=== PATIENT | female | born 1955 | race Caucasian/White ===

== ENCOUNTER 2021-08-25 09:34 | Inpatient (IN) ==
[2021-08-25] MEDS ORDERED: AZITHROMYCIN 500 MG in DEXTROSE 5% 250 ML IV STA (10:12)
[2021-08-25] MEDS ORDERED: SODIUM CHLORIDE 0.9% 1000ML 1,000 ML IV SCH (10:15)
[2021-08-25] MEDS ORDERED: DIPHTHERIA/TETANUS/PERTUSSIS 0.5 ML SYR/VIAL IM ONE (10:17)
[2021-08-25] MEDS ORDERED: VANCOMYCIN HCL 2,750 MG in SODIUM CHLORIDE 0.9% 500 ML IV ONE (10:40)
[2021-08-25] MEDS ORDERED: rifAMPin 300 MG CAPSULE PO ONE (10:40)
[2021-08-25] MEDS ORDERED: VANCOMYCIN CONSULT ACTIVE PRN (10:40)
[2021-08-25] MEDS ORDERED: XYLOCAINE 1%/SOD BICARB 20 ML VIAL INFIL STA (10:48)
[2021-08-25 10:55] LABS: Basophils # (auto) 0.02 K/uL (0-0.2); Basophils % (auto) 0.1 %; Eosinophils # (auto) 0.33 K/uL (0-0.5); Eosinophils % (auto) 2.5 %; Hemoglobin 13.9 g/dL (12.0-16.0); Immature Granulocytes # (auto) 0.05 K/uL (0.00-0.02); Immature Granulocytes % (auto) 0.4 %; Lymphocytes # (auto) 1.56 K/uL (1.2-3.4); Lymphocytes % (auto) 11.6 %; Mean Corpuscular Hemoglobin 30.4 pg (25-34); Mean Corpuscular Hgb Conc 33.1 g/dL (32-36); Mean Corpuscular Volume 91.9 fL (80-100); Mean Platelet Volume 8.9 fL (7.4-10.4); Monocytes # (auto) 0.77 K/uL (0.11-0.59); Monocytes % (auto) 5.7 %; Neutrophils # (auto) 10.69 K/uL (1.4-6.5); Neutrophils % (auto) 79.7 %; Platelet Count 389 K/uL (130-400); RDW Coefficient of Variation 12.9 % (11.5-14.5); RDW Standard Deviation 43.1 fL (36.4-46.3); Red Blood Count 4.57 M/uL (4.2-5.4); White Blood Count 13.42 K/uL (4.8-10.8)
--- NOTE | 2021-08-25 10:59 | Emergency Department Note ---
History of Present Illness General Chief complaint: Infection, Wound Stated complaint: ABCESS ON R ARM, PAIN AND DISCHARGE Time Seen by Provider: 08/25/21 09:43 History of Present Illness Maximum Pain Intensity: 10 This 66-year-old female patient presents to the emergency department today for evaluation of abscess and infection of the right forearm. The patient notes she was scratched by a cat, she believes on Monday. She states by Monday, she noticed some redness which was more like a band around her forearm. She was started on what she believes to be amoxicillin, but it sounds like it could be Augmentin (she takes BID) for the past 2 days. She has noted worsening pain, swelling, redness, and some purulent discharge. She states yesterday she developed chills, body aches, and fever of 102F. She has been taking Advil and ASA for her fever and pain. She reports throbbing, aching pain she rates 10/10 and describes as sharp. Pain is worse with movement of the RUE and palpation of the area. No numbness or tingling. No chest pain or dyspnea. No abdominal pain or vomiting. Home Medications Medication Instructions Recorded Confirmed Type amoxicillin 500 mg tablet 500 mg PO BID 08/25/21 08/25/21 History aspirin 81 mg chewable tablet 81 mg PO DAILY PRN 08/25/21 08/25/21 History bupropion HCl 150 mg tablet,12 hr 150 mg PO DAILY 08/25/21 08/25/21 History sustained-release (Wellbutrin SR) cariprazine 1.5 mg capsule 1.5 mg PO DAILY 08/25/21 08/25/21 History (Vraylar) duloxetine 60 mg capsule,delayed 60 mg PO BID 08/25/21 08/25/21 History release (Cymbalta) ibuprofen 200 mg tablet (Advil) 200 mg PO Q6H PRN 08/25/21 08/25/21 History Allergies Allergy/AdvReac Type Severity Reaction Status Date / Time No Known Allergies Allergy Unverified 08/25/21 10:30 Past Med/Surg History Medical History (Updated 08/25/21 @ 17:29 by Yahaira Limon PA-C) Depression Social History Smoking Status: Never smoker Hx Alcohol Use: Yes Alcohol type: wine Hx Substance Use: No Preferred Language: Yakut Communication Ability: Effective Clothing Supervisor Required: No Beliefs That Will Affect Care: None Current Living Situation: Alone Feels Safe at Home: Yes Assistive Devices: None Review of Systems A total of 10 systems reviewed and were otherwise negative Physical Exam Vital Signs Vital Signs - 24 hr 08/25/21 09:40 08/25/21 10:27 08/25/21 10:44 Temperature 36.4 C L Temperature Source Temporal Artery Scan Pulse Rate 106 H Pulse Rate [Apical] 78 Pulse Rate from SpO2 Sensor Pulse Rhythm Regular Pulse Strength Normal Respiratory Rate 20 20 Respiratory Effort / Characteristics Non-Labored Spontaneous Respiratory Depth Normal Respiratory Pattern Regular Blood Pressure 156/99 H Blood Pressure [Left Arm] 149/92 H Blood Pressure Mean 118 Blood Pressure Mean [Left Arm] 111 Blood Pressure Position Sitting Pulse Oximetry 96 95 Oxygen Delivery Method Room Air Room Air Room Air Sepsis Recent Fever Within 48 Hours No Sepsis New/Unexplained Change in Mental Status N/A Sepsis Action Taken by Nursing No Action Required 08/25/21 11:00 08/25/21 11:30 08/25/21 12:00 Temperature Temperature Source Pulse Rate 85 74 84 Pulse Rate [Apical] 82 Pulse Rate from SpO2 Sensor 84 76 84 Pulse Rhythm Pulse Strength Respiratory Rate 20 19 21 Respiratory Effort / Characteristics Respiratory Depth Respiratory Pattern Blood Pressure 142/94 H 156/95 H 142/97 H Blood Pressure [Left Arm] 142/94 H Blood Pressure Mean 110 115 112 Blood Pressure Mean [Left Arm] 110 Blood Pressure Position Pulse Oximetry 95 96 98 Oxygen Delivery Method Room Air Sepsis Recent Fever Within 48 Hours Sepsis New/Unexplained Change in Mental Status Sepsis Action Taken by Nursing 08/25/21 12:09 Temperature Temperature Source Pulse Rate Pulse Rate [Apical] Pulse Rate from SpO2 Sensor Pulse Rhythm Pulse Strength Respiratory Rate Respiratory Effort / Characteristics Non-Labored Spontaneous Respiratory Depth Respiratory Pattern Blood Pressure Blood Pressure [Left Arm] Blood Pressure Mean Blood Pressure Mean [Left Arm] Blood Pressure Position Pulse Oximetry Oxygen Delivery Method Room Air Sepsis Recent Fever Within 48 Hours Sepsis New/Unexplained Change in Mental Status Sepsis Action Taken by Nursing VITALS: Vitals are noted on the nurse's note and reviewed by myself. Vital signs stable. GENERAL: This is a 66 year old white female, in no acute distress, nondiaphoretic, well-developed well-nourished. SKIN: Golf-ball size abscess of the right forearm with surrounding erythema and induration of the tissue with erythema extending up the right upper extremity to the axilla. No specific lymphadenopathy, but the RUE is extremely tender to palpation. The skin was otherwise without rashes, erythema, edema, or bruising. There is no tenting of the skin. Capillary refill less than 2 seconds. HEAD: Normocephalic atraumatic. EYES: Conjunctivae without injection, sclerae without icterus. NECK: Supple without nuchal rigidity. No lymphadenopathy. No JVD. HEART: Regular rate and rhythm without murmurs gallops or rubs. LUNGS: Clear to auscultation bilaterally without wheezes, rales or rhonchi. No retractions or accessory muscle use. MUSCULOSKELETAL: No muscle atrophy, erythema, or edema noted. Full range of motion without joint tenderness in all extremities. No tenderness to palpation. Normal gait. Strength 5/5 throughout. NEURO: Patient was alert and oriented to person place and time. Normal sensation to light and sharp touch. No focal neurological deficits. Procedures Abscess I/D Site: upper extremity Side (if applicable): right Local Anesthetic: lidocaine 1% Amount of anesthesia used (mL): 3 Technique: incised with #11 blade Amount of fluid expressed (mL): 10 Irrigation: Yes Packing used?: plain (bacitracin-soaked) Course Course The patient was seen and evaluated as above. An order was placed for continuous cardiac monitoring. The monitor shows a sinus tachycardia at a rate of 106 bpm. IV access obtained, labs drawn. Patient medicated with IV fluids. I did consult the ED pharmacist. The patient was medicated with IV azithromycin, vancomycin, and p.o. rifampin. She was given Tdap vaccination. Labs reviewed by myself. I discussed the findings with the patient at bedside. I discussed the case with my attending. [facility] He did see and evaluate the patient I&D of the abscess of the right upper extremity was performed. Culture obtained. The patient tolerated the procedure well. Please see hospitalist dictation regarding ongoing management care of this patient. Administered Medications Oxycodone HCl (Oxycodone Hcl Ir 5 Mg Tab (Immediate Release)) 10 mg PO Q6H PRN PRN Reason: Moderate Pain 4-01/21 Stop: 09/08/21 13:50 Last Admin: 08/25/21 16:42 Dose: 10 mg Documented by: [id number] Discontinued Medications Diphtheria/Pertussis/Tetanus Vacc (Diphtheria/Tetanus/Pertussis 0.5 Ml Syr/Vial) 0.5 ml IM .ONCE ONE Stop: 08/25/21 10:18 Last Admin: 08/25/21 11:18 Dose: 0.5 ml Documented by: [id number] Sodium Chloride (Nss 1000ml) 1,000 mls @ 999 mls/hr IV .Q1H1M BLADE Stop: 08/25/21 11:15 Last Infusion: 08/25/21 12:01 Dose: 0 mls/hr Documented by: [id number] Admin: 08/25/21 11:00 Dose: 999 mls/hr Documented by: [id number] Azithromycin 500 mg/ Dextrose 255 mls @ 127.5 mls/hr IV NOW STA Stop: 08/25/21 12:11 Last Infusion: 08/25/21 13:23 Dose: 0 mls/hr Documented by: [id number] Admin: 08/25/21 11:18 Dose: 127.5 mls/hr Documented by: [id number] Vancomycin HCl 2,750 mg/ (Sodium Chloride) 555 mls @ 200 mls/hr IV NOW ONE Stop: 08/25/21 13:26 Last Infusion: 08/25/21 15:01 Dose: 0 mls/hr Documented by: [id number] Admin: 08/25/21 11:17 Dose: 200 mls/hr Documented by: [id number] Lidocaine HCl (Xylocaine 1%/Sod Bicarb 20 Ml Vial) 20 ml INFIL NOW STA Stop: 08/25/21 10:49 Last Admin: 08/25/21 11:15 Dose: 20 ml Documented by: [id number] Morphine Sulfate (Morphine Sulfate 10 Mg/Ml Carp/Vial) 4 mg IV NOW STA Stop: 08/25/21 13:26 Last Admin: 08/25/21 13:29 Dose: 4 mg Documented by: [id number] Rifampin (Rifampin 300 Mg Capsule) 300 mg PO NOW ONE Stop: 08/25/21 10:41 Last Admin: 08/25/21 11:54 Dose: 300 mg Documented by: [id number] Medical Decision Making Differential Diagnosis Cat scratch disease, lymphangitis, cellulitis, abscess, MRSA infection, DVT, necrotizing fasciitis, dermatitis, drug eruption, allergic reaction, as well as other pathologies. Medical Records Attestation: I reviewed the patient's medical records. Home Medications Current Medication List: was personally reviewed by me Laboratory Data Attestation: I reviewed the patient's lab results. Leukocytosis of 13,000. No anemia or thrombocytopenia. INR 0.9. Renal, hepatic function and electrolytes without significant abnormality. Lactic acid 0.9. COVID-19 testing negative. Result diagrams: 08/25/21 10:40 08/25/21 10:40 Lab Results 08/25/21 08/25/21 08/25/21 Range/Units 10:40 10:40 10:40 WBC 13.42 H (4.8-10.8) K/uL RBC 4.57 (4.2-5.4) M/uL Hgb 13.9 (12.0-16.0) g/dL Hct 42.0 (37-47) % MCV 91.9 (80-100) fL MCH 30.4 (25-34) pg MCHC 33.1 (32-36) g/dL RDW Std Deviation 43.1 (36.4-46.3) fL RDW Coeff of Hermelinda 12.9 (11.5-14.5) % Plt Count 389 (130-400) K/uL MPV 8.9 (7.4-10.4) fL Immature Gran % (Auto) 0.4 % Neut % (Auto) 79.7 % Lymph % (Auto) 11.6 % [place] % (Auto) 5.7 % Eos % (Auto) 2.5 % Baso % (Auto) 0.1 % Neut # (Auto) 10.69 H (1.4-6.5) K/uL Lymph # (Auto) 1.56 (1.2-3.4) K/uL [place] # (Auto) 0.77 H (0.11-0.59) K/uL Eos # (Auto) 0.33 (0-0.5) K/uL Baso # (Auto) 0.02 (0-0.2) K/uL Immature Gran # (Auto) 0.05 H (0.00-0.02) K/uL PT 9.5 (9.0-12.0) Seconds INR 0.9 (0.9-1.1) APTT 28.5 (21.0-31.0) Seconds PTT Ratio 1.1 Sodium 140 (136-145) mmol/L Potassium 4.2 (3.5-5.1) mmol/L Chloride 104 (98-107) mmol/L Carbon Dioxide 27 (21-32) mmol/L Anion Gap 9 (3-11) BUN 16 (6-23) mg/dl Creatinine 0.62 (0.6-1.2) mg/dl Est Cr Clr Drug Dosing 113.1 ml/min Est GFR ( Amer) 110.4 ml/min Est GFR (Non-Af Amer) 95.3 ml/min BUN/Creatinine Ratio 25.8 H (10-20) Glucose 133 H (70-99) mg/dl Lactate (0.4-2.0) mmol/L Calcium 9.6 (8.5-10.1) mg/dl Magnesium 2.0 (1.7-2.4) mg/dl Total Bilirubin 0.4 (0.2-1.0) mg/dl AST 13 (13-39) U/L ALT 15 (7-52) U/L Alkaline Phosphatase 131 H (34-104) U/L Total Protein 7.9 (6.0-8.3) gm/dl Albumin 3.9 (3.4-5.0) gm/dl Globulin 4.0 (2.5-4.0) gm/dl Albumin/Globulin Ratio 1.0 (0.9-2) SARS-CoV-2, RNA, NAAT (NEGATIVE) 08/25/21 08/25/21 Range/Units 10:40 12:10 WBC (4.8-10.8) K/uL RBC (4.2-5.4) M/uL Hgb (12.0-16.0) g/dL Hct (37-47) % MCV (80-100) fL MCH (25-34) pg MCHC (32-36) g/dL RDW Std Deviation (36.4-46.3) fL RDW Coeff of Hermelinda (11.5-14.5) % Plt Count (130-400) K/uL MPV (7.4-10.4) fL Immature Gran % (Auto) % Neut % (Auto) % Lymph % (Auto) % [place] % (Auto) % Eos % (Auto) % Baso % (Auto) % Neut # (Auto) (1.4-6.5) K/uL Lymph # (Auto) (1.2-3.4) K/uL [place] # (Auto) (0.11-0.59) K/uL Eos # (Auto) (0-0.5) K/uL Baso # (Auto) (0-0.2) K/uL Immature Gran # (Auto) (0.00-0.02) K/uL PT (9.0-12.0) Seconds INR (0.9-1.1) APTT (21.0-31.0) Seconds PTT Ratio Sodium (136-145) mmol/L Potassium (3.5-5.1) mmol/L Chloride (98-107) mmol/L Carbon Dioxide (21-32) mmol/L Anion Gap (3-11) BUN (6-23) mg/dl Creatinine (0.6-1.2) mg/dl Est Cr Clr Drug Dosing ml/min Est GFR ( Amer) ml/min Est GFR (Non-Af Amer) ml/min BUN/Creatinine Ratio (10-20) Glucose (70-99) mg/dl Lactate 0.9 (0.4-2.0) mmol/L Calcium (8.5-10.1) mg/dl Magnesium (1.7-2.4) mg/dl Total Bilirubin (0.2-1.0) mg/dl AST (13-39) U/L ALT (7-52) U/L Alkaline Phosphatase (34-104) U/L Total Protein (6.0-8.3) gm/dl Albumin (3.4-5.0) gm/dl Globulin (2.5-4.0) gm/dl Albumin/Globulin Ratio (0.9-2) SARS-CoV-2, RNA, NAAT NEGATIVE (NEGATIVE) Imaging Data Radiologist's Impression: Chest X-Ray 08/25/21 10:14 XR chest 1V portable CLINICAL HISTORY: Sepsis. COMPARISON STUDY: No previous studies for comparison. FINDINGS: No pneumothorax or pleural effusion is present. Linear left midlung opacity reflects atelectasis. There is no consolidation or evidence for pulmonary edema. Mild to moderate enlargement of cardiac silhouette is present. IMPRESSION: 1. No acute cardiopulmonary findings. 2. Mild to moderate enlargement of the cardiac silhouette. ACT 112: Negative or not required by law. Electronically signed by: Mark Quick M.D. 08/25/2021 11:04 AM Blood Pressure Blood Pressure Findings: Elevated blood pressure Blood Pressure Disposition: further management by hospitalist MDM Narrative This 66-year-old female patient presents to the emergency department today for evaluation of redness and abscess of the right upper extremity in the setting of recent cat scratch. The patient was on antibiotics as an outpatient, unclear amoxicillin versus Augmentin. She developed worsening symptoms over the past 2 days. The patient was found to have extensive cellulitis with the right upper extremity with large abscess of the forearm. This was incised and drained. She was started on IV antibiotics to include azithromycin and vancomycin. She was started on p.o. rifampin for cat scratch disease. She will be admitted to the [facility] hospitalist service. Please see hospitalist dictation regarding ongoing management care of this patient The chart was completed utilizing [employer] Speech voice recognition software. Grammatical errors, random word insertions, pronoun errors, and incomplete sentences are an occasional consequence of this system due to software limitations, ambient noise, and hardware issues. Any formal questions or concerns about the content, text, or information contained within the body of this dictation should be directly addressed to the provider for clarification. Impression & Plan Cat-scratch disease, Abscess of arm, right, Cellulitis of arm, right, Myalgia, Chills Discharge Plan Visit Data Chief Complaint: Infection, Wound Stated Complaint: ABCESS ON R ARM, PAIN AND DISCHARGE ED Midlevel Provider: Yahaira Limon Discharge Problem: Cat-scratch disease, Abscess of arm, right, Cellulitis of arm, right, Myalgia, Chills Patient Disposition: Admitted As Inpatient Discharge Instructions Interventions: ED Discharge Assessment Last Done: 08/25/21 13:40
--- NOTE | 2021-08-25 11:05 | XRay Report ---
XR chest 1V portable CLINICAL HISTORY: Sepsis. COMPARISON STUDY: No previous studies for comparison. FINDINGS: No pneumothorax or pleural effusion is present. Linear left midlung opacity reflects atelec tasis. There is no consolidation or evidence for pulmonary edema. Mild to moderate enlargement of car diac silhouette is present. IMPRESSION: 1. No acute cardiopulmonary findings. 2. Mild to moderate enlargement of the cardiac silhouette. ACT 112: Negative or not required by law. Electronically signed by: Mark Quick M.D. 08/25/2021 11:04 AM
[2021-08-25 11:12] LABS: INR 0.9 (0.9-1.1); Partial Thromboplastin Ratio 1.1; Partial Thromboplastin Time 28.5 Seconds (21.0-31.0); Prothrombin Time 9.5 Seconds (9.0-12.0)
[2021-08-25 11:18] LABS: Albumin Level 3.9 gm/dl (3.4-5.0); BUN Creatinine Ratio 25.8 (10-20); Bilirubin,Total 0.4 mg/dl (0.2-1.0); Calcium 9.6 mg/dl (8.5-10.1); Creatinine Clr Calc Pharmacy 113.1 ml/min; Est GFR (African American) 110.4 ml/min; Est GFR (Non-African American) 95.3 ml/min; Potassium 4.2 mmol/L (3.5-5.1); Total Protein 7.9 gm/dl (6.0-8.3)
--- NOTE | 2021-08-25 12:15 | Electrocardiogram Report ---
Test Reason : Blood Pressure : / mmHG Vent. Rate : 076 BPM Atrial Rate : 076 BPM P-R Int : 164 ms QRS Dur : 076 ms QT Int : 374 ms P-R-T Axes : 067 -19 034 degrees QTc Int : 420 ms Normal sinus rhythm Left atrial enlargement Borderline ECG No previous ECGs available Confirmed by Cory Cuenca ([id number]) on 08/25/2021 12:15:16 PM Referred By: REFERRED SELF Confirmed By:Cory Cuenca
--- NOTE | 2021-08-25 12:22 | History & Physical Report ---
Date of Service August 25, 2021 Assessment & Plan (1) Cat-scratch disease: Plan: Patient with significant infection from a cat scratch with concern for Bartonella henselae patient will be on triple antibiotic therapy at this time pending cultures this will be vancomycin azithromycin and rifampin orally. Pain control with parenteral and opiate (2) Depression: Plan: Patient is maintained on her Wellbutrin, and Cymbalta. She is on a medication we do not carry on formulary which is cariprazine Joshua to bring this from home (3) DVT prophylaxis: Plan: Heparin subcu will be used for DVT prevention. Wound care nurses will see the patient for appropriate wound care during her hospital stay History of Present Illness Primary Care Provider: NO PCP 66-year-old female with health problems recently related to depression who pres ents with about a 5-day prehospital history of increased redness to her right arm. Patient believes she was scratched by a barn cat [place] her brother[place] farm. Patient states that she did see [facility] where she was given some dog amoxicillin. Patient states she has taken that for the last 2 days but has only had progression of her redness and swelling and tenderness. There is some minor discharge. There is redness spreading up the inner part of her right arm. There is no significant lymphadenopathy at this time. In the emergency department there is concern for cat scratch disease. Reportedly the emergency room physicians administrative library assistant is going to perform an I&D and get deep tissue cultures. After collaboration with the emergency room pharmacist we felt best to treat th is aggressively as she does have evidence of lymphangitis subsequently she was given vancomycin azithromycin and rifampin and these will be continued pending the results of her cultures to be worrisome for Bartonella henselae. Otherwise the patient denies any thing with the exception of decreased appetite otherwise she has no chest pain pressure shortness of breath coughing symptoms of COVID diarrhea or urinary problems Allergies Allergy/AdvReac Type Severity Reaction Status Date / Time No Known Allergies Allergy Unverified 08/25/21 10:30 Home Medications Medication Instructions Recorded Confirmed Type amoxicillin 500 mg tablet 500 mg PO BID 08/25/21 08/25/21 History aspirin 81 mg chewable tablet 81 mg PO DAILY PRN 08/25/21 08/25/21 History bupropion HCl 150 mg tablet,12 hr 150 mg PO DAILY 08/25/21 08/25/21 History sustained-release (Wellbutrin SR) cariprazine 1.5 mg capsule 1.5 mg PO DAILY 08/25/21 08/25/21 History (Vraylar) duloxetine 60 mg capsule,delayed 60 mg PO BID 08/25/21 08/25/21 History release (Cymbalta) ibuprofen 200 mg tablet (Advil) 200 mg PO Q6H PRN 08/25/21 08/25/21 History Past Med/Surg History Medical History (Updated 08/25/21 @ 12:20 by Carlos Duong MD) Depression Social History Smoking Status: Never smoker Feels Safe at Home: Yes Review of Systems Review of Systems: Mild distress and fatigue no headache, no visual changes no speech or swallowing issues no chest pain, pressure or palpitations no shortness of breath, cough or wheezes no abdominal pain, nausea or vomiting, diarrhea or constipation no dysuria, hematuria or frequency Significant erythema and swelling and tenderness to the right mid forearm on the dorsal aspect with erythema spreading to the palmar aspect but not to the axilla no back pain, CVA tenderness or radicular pain no bruising, bleeding or rashes no focal signs of weakness or numbness or altered sensation no complaints of anxiety or depression.. Physical Exam Physical Exam: The patient appeared well nourished and normally developed. Pale patient is in mild to moderate distress due to pain Vital signs as documented. Head exam is normocephalic atraumatic Neck is without JVD, thyromegaly, or carotid bruits. Lungs are clear to auscultation, no focal loss of breath sounds Cardiac exam, Rhythm is regular.. No murmurs, rubs or gallops. Abdominal exam reveals normal bowel sounds, soft non tender, no masses Right upper extremity has approximately a 4 cm swollen area which is tender and erythematous the erythema spreads around this area to the palmar aspect of her forearm up to the inner aspect of her upper arm but not to her axilla. There is no axillary lymphadenopathy. The dome or top of the swollen area has some new to the skin suggesting it may be beginning to point. Its I&D is not yet been performed but planning to be performed by the emergency room Neurologic exam is alert and oriented, no focal loss of strength or sensation to clearly no loss of sensation to her hands and likewise there is no significant swelling she can still approximate her fingers Psychologically is without concerns for anxiety or depression.. Results & Data Results & Data ([facility]) Vital Signs (Past 12 Hours) Vital Signs Temp Pulse Pulse Resp BP BP Pulse Ox 08/25/21 12:00 84 21 142/97 H 98 08/25/21 11:30 74 19 156/95 H 96 08/25/21 11:00 85 82 20 142/94 H 142/94 H 95 08/25/21 10:44 78 20 149/92 H 95 08/25/21 09:40 97.5 F L 106 H 20 156/99 H 96 Diagnostic Findings Chest X-Ray 08/25/21 10:14 XR chest 1V portable CLINICAL HISTORY: Sepsis. COMPARISON STUDY: No previous studies for comparison. FINDINGS: No pneumothorax or pleural effusion is present. Linear left midlung opacity reflects atelectasis. There is no consolidation or evidence for pulmonary edema. Mild to moderate enlargement of cardiac silhouette is present. IMPRESSION: 1. No acute cardiopulmonary findings. 2. Mild to moderate enlargement of the cardiac silhouette. ACT 112: Negative or not required by law. Electronically signed by: Mark Quick M.D. 08/25/2021 11:04 AM Code Status & VTE Plan VTE Prophylaxis Plan VTE Prophylaxis will be ordered: Yes PG Care Time/CCT Total # of Minutes Spent Total Time Spent with Patient: Total time spent is greater than 50% in coordination of care (as documented) at patient's floor/unit and/or counseling patient: Coding Level of Care Code 20265 Initial Inpt Care Lvl 2 Diagnoses Cat-scratch disease A28.1 Depression F32.A DVT prophylaxis Z29.9
[2021-08-25] MEDS ORDERED: MoRPHine SULFATE 10 MG/ML CARP/VIAL IV STA (13:25)
[2021-08-25] MEDS ORDERED: ACETAMINOPHEN 500 MG TAB PO PRN (13:51)
[2021-08-25] MEDS ORDERED: ALUMINUM/MAGNESIUM SUSP 30 ML UDC PO PRN (13:51)
[2021-08-25] MEDS ORDERED: ONDANSETRON INJ 2 MG/ML 2 ML VIAL IV PRN (13:51)
[2021-08-25] MEDS ORDERED: MoRPHine SULFATE 4 MG/ML 1 ML CARP\\VIAL IV PRN (13:51)
[2021-08-25] MEDS ORDERED: MoRPHine SULFATE 2 MG/ML CARP IV PRN (13:51)
--- NOTE | 2021-08-25 14:31 | Pharmacy Report ---
Pharmacy Vanc AUC Short Note - Date of Service August 25, 2021 - Assessment & Plan Assessment 66 year old F started on triple therapy with vancomycin/azithromycin and rifampin for cat scratch infection/forearm abscess. Cultures pending at this time Plan Vancomycin * AUC/AMY is the preferred PK/PD target for vancomycin * AUC guided dosing is effective and associated with decreased risk of nephrotoxicity compared to traditional trough targets * Given loading dose of vancomycin 2750 mg x 1 this Am (~25 mg/kg/dose) * Will start maintenance dose of vancomycin 1500 mg iv q 12 hrs based on AUC dosing * This dosing is predicted to achieve a trough level of ~17 mcg/mL is predicted to achieve target AUC/AMY of 400-600 mg/L.hr and may be associated with a 14 % risk of nephrotoxicity * Plan to order vancomycin trough level if plan is for abx to be continued >48 hrs Pharmacy will continue to follow and will adjust dose/frequency as necessary. Thank you.
[2021-08-25] MEDS: oxyCODONE HCL IR 5 MG TAB (IMMEDIATE RELEASE) PO PRN (16:42)
[2021-08-25 16:47] LABS: Appearance Urine Clear (Clear); Bacteria Urine Automated Negative (Negative); Blood Urine Negative (Negative); Color Urine Dark Yellow; Epithelial Cell Urine Auto 20-30 /lpf (0-5); Glucose Urine UA Negative (Negative); Ketones Urine Trace (Negative); Leukocyte Esterase Urine Trace (Negative); Nitrite Urine Positive (Negative); Protein Urine Negative (Negative); Specific Gravity Urine 1.023 (1.000-1.030); Urobilinogen Urine Negative (Negative)
[2021-08-25 16:49] LABS: Bilirubin Urine 1+ (Negative)
[2021-08-25] MEDS: DULoxetine HCL 60 MG CAP PO SCH (20:38)
[2021-08-25] MEDS: HEPARIN SOD 5,000 UNIT/0.5 ML VIAL SQ SCH (20:40)
[2021-08-25] MEDS: VANCOMYCIN HCL 1,500 MG in SODIUM CHLORIDE 0.9% 500 ML IV SCH (23:52)
[2021-08-26 06:13] LABS: Hematocrit (blood only) 39.8 % (37-47); Hemoglobin 13.1 g/dL (12.0-16.0); Mean Corpuscular Hgb Conc 32.9 g/dL (32-36); Mean Corpuscular Volume 91.3 fL (80-100); Mean Platelet Volume 8.6 fL (7.4-10.4); Platelet Count 358 K/uL (130-400); RDW Coefficient of Variation 12.5 % (11.5-14.5); RDW Standard Deviation 42.3 fL (36.4-46.3); Red Blood Count 4.36 M/uL (4.2-5.4); White Blood Count 9.62 K/uL (4.8-10.8)
[2021-08-26 06:41] LABS: BUN Creatinine Ratio 23.3 (10-20); Calcium 8.5 mg/dl (8.5-10.1); Creatinine Clr Calc Pharmacy 115.9 ml/min; Est GFR (African American) 111.6 ml/min; Est GFR (Non-African American) 96.3 ml/min; Potassium 3.9 mmol/L (3.5-5.1)
--- NOTE | 2021-08-26 07:54 | Hospitalist Progress Note ---
Date of Service August 26, 2021 Assessment & Plan (1) Cat-scratch disease: Plan: Patient with significant infection from a cat scratch with concern for Bartonella henselae/cellulitis/lymphagitis -- reported possible bite by barn cat last Monday, got Amoxicillin from [facility] on Monday, took 2 doses without improvement and reported chills/worsening erythema/pain I&D in ER --> Cx pending. GS with many gram positive cocci. Monitor/de-escalate as able Xray to ensure no foreign body/enedelia involvement --> 1. No acute fracture or opaque foreign body.2. Moderate diffuse soft tissue swelling with small focus of soft tissue gas projecting over the volar radial mid to distal forearm suggestive of penetrating injury. --> Focus of soft tissue gas over volar radial mid-distal forearm is in site of I&D, no need for MRI/CT at this time as discussed with orthopedics chief engineering division Continued on Vancomycin, Azithromycin, Rifampin --> decreased erythema/edema and pain 08/26 Pain control -- IV/PO -- reported improvement of pain compared to yesterday WBC 9.6k from 13.9k No further fevers Blood cultures NGTD Continue to monitor overnight (2) Depression: Plan: Vraylar to be brought from home -- patient assistance has not paid for this medication and patient has not taken in 2 weeks.NO acute needs at this time Patient is maintained on her Wellbutrin, and Cymbalta. (3) DVT prophylaxis: Plan: Heparin SQ while inpatient Wound RN to see while inpatient (4) Abscess of arm, right: Plan: I&D as above, abx. Follow cx (5) Cellulitis of arm, right: Plan: 2nd to above, tx as outlined Plan: continued inpatient stay on abx, monitor cx, possible d/c in AM on oral abx if continued improvement Admission and Anticipated Discharge Date Admission Date: August 25, 2021 Supervising Physician Co-Signing Physician Notes Attending Attestation - Chart reviewed in detail, care plan d/w [place]. I agree w/ the pena components of her documentation. Jaya Segura MD Subjective patient evaluated around lunch.doing well. pain still present but not as bad as day before. no further fever/chills but did have prior to admission. Cat bite last monday, called [facility] monday and started amoxicillin, got 2 days and had progressive erythema/warmth/pain. Decreased swelling today. Dressing removed and packing. RN to repack/re-dress. Discussed monitoring cultures to determine abx therapy and possible d/c in AM if continued improvement and able to convert to oral antibiotics. Patient hopeful for d/c tomorrow. Review of Systems Review of Systems: All systems reviewed & are unremarkable except as noted in HPI & below Physical Exam Physical Exam: General: WD/WN, obese female, sitting up in bed, NAD Eyes anicteric, pupils equal ENT: mmm, trachea midline without deviation Resp: CTAB, no w/c/r, on RA CV: RRR, no m/r/g, no edema, calves non-tender GI: +BS, soft, non-tender : no burgess Psych: AOx3, pleasant and cooperative MSK/Skin/Neuro: --> RUE with erythema to volar aspect of forearm, packing and dressing removed, purulent/bloody drainage noted from I&D site (RN to re-dress/pack), tender to palpation, decreased erythema/streaking to axillae and appears to be contained to forearm currently. NVI, fingers mobile, pulses palpable. ROM intact Results & Data Results & Data ([facility]) Vital Signs (Past 12 Hours) Vital Signs Temp Pulse Resp BP Pulse Ox 08/26/21 07:48 36.6 C 68 16 140/75 96 08/25/21 22:55 36.8 C 75 18 151/85 H 93 Laboratory Results 08/26/21 08/26/21 08/25/21 Range/Units 05:57 05:57 16:28 WBC 9.62 (4.8-10.8) K/uL RBC 4.36 (4.2-5.4) M/uL Hgb 13.1 (12.0-16.0) g/dL Hct 39.8 (37-47) % MCV 91.3 (80-100) fL MCH 30.0 (25-34) pg MCHC 32.9 (32-36) g/dL RDW Std Deviation 42.3 (36.4-46.3) fL RDW Coeff of Hermelinda 12.5 (11.5-14.5) % Plt Count 358 (130-400) K/uL MPV 8.6 (7.4-10.4) fL Immature Gran % (Auto) % Neut % (Auto) % Lymph % (Auto) % Berks % (Auto) % Eos % (Auto) % Baso % (Auto) % Neut # (Auto) (1.4-6.5) K/uL Lymph # (Auto) (1.2-3.4) K/uL Berks # (Auto) (0.11-0.59) K/uL Eos # (Auto) (0-0.5) K/uL Baso # (Auto) (0-0.2) K/uL Immature Gran # (Auto) (0.00-0.02) K/uL PT (9.0-12.0) Seconds INR (0.9-1.1) APTT (21.0-31.0) Seconds PTT Ratio Sodium 137 (136-145) mmol/L Potassium 3.9 (3.5-5.1) mmol/L Chloride 104 (98-107) mmol/L Carbon Dioxide 24 (21-32) mmol/L Anion Gap 9 (3-11) BUN 14 (6-23) mg/dl Creatinine 0.60 (0.6-1.2) mg/dl Est Cr Clr Drug Dosing 115.9 ml/min Est GFR ( Amer) 111.6 ml/min Est GFR (Non-Af Amer) 96.3 ml/min BUN/Creatinine Ratio 23.3 H (10-20) Glucose 135 H (70-99) mg/dl Lactate (0.4-2.0) mmol/L Calcium 8.5 (8.5-10.1) mg/dl Magnesium (1.7-2.4) mg/dl Total Bilirubin (0.2-1.0) mg/dl AST (13-39) U/L ALT (7-52) U/L Alkaline Phosphatase (34-104) U/L Total Protein (6.0-8.3) gm/dl Albumin (3.4-5.0) gm/dl Globulin (2.5-4.0) gm/dl Albumin/Globulin Ratio (0.9-2) Urine Color Dark Yellow Urine Appearance Clear (Clear) Urine pH 5.0 (4.5-7.5) Ur Specific Baxter 1.023 (1.000-1.030) Urine Protein Negative (Negative) Urine Glucose (UA) Negative (Negative) Urine Ketones Trace H (Negative) Urine Blood Negative (Negative) Urine Nitrite Positive A (Negative) Urine Bilirubin 1+ H (Negative) Urine Urobilinogen Negative (Negative) Ur Leukocyte Esterase Trace H (Negative) Urine WBC (Auto) 1-5 (0-5) /hpf Urine RBC (Auto) 10-30 H (0-4) /hpf U Hyaline Cast (Auto) 1-5 (0-5) /lpf U Epithel Cells (Auto) 20-30 H (0-5) /lpf Urine Bacteria (Auto) Negative (Negative) SARS-CoV-2, RNA, NAAT (NEGATIVE) 08/25/21 08/25/21 08/25/21 Range/Units 12:10 10:40 10:40 WBC (4.8-10.8) K/uL RBC (4.2-5.4) M/uL Hgb (12.0-16.0) g/dL Hct (37-47) % MCV (80-100) fL MCH (25-34) pg MCHC (32-36) g/dL RDW Std Deviation (36.4-46.3) fL RDW Coeff of Hermelinda (11.5-14.5) % Plt Count (130-400) K/uL MPV (7.4-10.4) fL Immature Gran % (Auto) % Neut % (Auto) % Lymph % (Auto) % Berks % (Auto) % Eos % (Auto) % Baso % (Auto) % Neut # (Auto) (1.4-6.5) K/uL Lymph # (Auto) (1.2-3.4) K/uL Berks # (Auto) (0.11-0.59) K/uL Eos # (Auto) (0-0.5) K/uL Baso # (Auto) (0-0.2) K/uL Immature Gran # (Auto) (0.00-0.02) K/uL PT (9.0-12.0) Seconds INR (0.9-1.1) APTT (21.0-31.0) Seconds PTT Ratio Sodium 140 (136-145) mmol/L Potassium 4.2 (3.5-5.1) mmol/L Chloride 104 (98-107) mmol/L Carbon Dioxide 27 (21-32) mmol/L Anion Gap 9 (3-11) BUN 16 (6-23) mg/dl Creatinine 0.62 (0.6-1.2) mg/dl Est Cr Clr Drug Dosing 113.1 ml/min Est GFR ( Amer) 110.4 ml/min Est GFR (Non-Af Amer) 95.3 ml/min BUN/Creatinine Ratio 25.8 H (10-20) Glucose 133 H (70-99) mg/dl Lactate 0.9 (0.4-2.0) mmol/L Calcium 9.6 (8.5-10.1) mg/dl Magnesium 2.0 (1.7-2.4) mg/dl Total Bilirubin 0.4 (0.2-1.0) mg/dl AST 13 (13-39) U/L ALT 15 (7-52) U/L Alkaline Phosphatase 131 H (34-104) U/L Total Protein 7.9 (6.0-8.3) gm/dl Albumin 3.9 (3.4-5.0) gm/dl Globulin 4.0 (2.5-4.0) gm/dl Albumin/Globulin Ratio 1.0 (0.9-2) Urine Color Urine Appearance (Clear) Urine pH (4.5-7.5) Ur Specific Baxter (1.000-1.030) Urine Protein (Negative) Urine Glucose (UA) (Negative) Urine Ketones (Negative) Urine Blood (Negative) Urine Nitrite (Negative) Urine Bilirubin (Negative) Urine Urobilinogen (Negative) Ur Leukocyte Esterase (Negative) Urine WBC (Auto) (0-5) /hpf Urine RBC (Auto) (0-4) /hpf U Hyaline Cast (Auto) (0-5) /lpf U Epithel Cells (Auto) (0-5) /lpf Urine Bacteria (Auto) (Negative) SARS-CoV-2, RNA, NAAT NEGATIVE (NEGATIVE) 08/25/21 08/25/21 Range/Units 10:40 10:40 WBC 13.42 H (4.8-10.8) K/uL RBC 4.57 (4.2-5.4) M/uL Hgb 13.9 (12.0-16.0) g/dL Hct 42.0 (37-47) % MCV 91.9 (80-100) fL MCH 30.4 (25-34) pg MCHC 33.1 (32-36) g/dL RDW Std Deviation 43.1 (36.4-46.3) fL RDW Coeff of Hermelinda 12.9 (11.5-14.5) % Plt Count 389 (130-400) K/uL MPV 8.9 (7.4-10.4) fL Immature Gran % (Auto) 0.4 % Neut % (Auto) 79.7 % Lymph % (Auto) 11.6 % Berks % (Auto) 5.7 % Eos % (Auto) 2.5 % Baso % (Auto) 0.1 % Neut # (Auto) 10.69 H (1.4-6.5) K/uL Lymph # (Auto) 1.56 (1.2-3.4) K/uL Berks # (Auto) 0.77 H (0.11-0.59) K/uL Eos # (Auto) 0.33 (0-0.5) K/uL Baso # (Auto) 0.02 (0-0.2) K/uL Immature Gran # (Auto) 0.05 H (0.00-0.02) K/uL PT 9.5 (9.0-12.0) Seconds INR 0.9 (0.9-1.1) APTT 28.5 (21.0-31.0) Seconds PTT Ratio 1.1 Sodium (136-145) mmol/L Potassium (3.5-5.1) mmol/L Chloride (98-107) mmol/L Carbon Dioxide (21-32) mmol/L Anion Gap (3-11) BUN (6-23) mg/dl Creatinine (0.6-1.2) mg/dl Est Cr Clr Drug Dosing ml/min Est GFR ( Amer) ml/min Est GFR (Non-Af Amer) ml/min BUN/Creatinine Ratio (10-20) Glucose (70-99) mg/dl Lactate (0.4-2.0) mmol/L Calcium (8.5-10.1) mg/dl Magnesium (1.7-2.4) mg/dl Total Bilirubin (0.2-1.0) mg/dl AST (13-39) U/L ALT (7-52) U/L Alkaline Phosphatase (34-104) U/L Total Protein (6.0-8.3) gm/dl Albumin (3.4-5.0) gm/dl Globulin (2.5-4.0) gm/dl Albumin/Globulin Ratio (0.9-2) Urine Color Urine Appearance (Clear) Urine pH (4.5-7.5) Ur Specific Baxter (1.000-1.030) Urine Protein (Negative) Urine Glucose (UA) (Negative) Urine Ketones (Negative) Urine Blood (Negative) Urine Nitrite (Negative) Urine Bilirubin (Negative) Urine Urobilinogen (Negative) Ur Leukocyte Esterase (Negative) Urine WBC (Auto) (0-5) /hpf Urine RBC (Auto) (0-4) /hpf U Hyaline Cast (Auto) (0-5) /lpf U Epithel Cells (Auto) (0-5) /lpf Urine Bacteria (Auto) (Negative) SARS-CoV-2, RNA, NAAT (NEGATIVE) Diagnostic Findings Forearm X-Ray 08/26/21 09:44 XR forearm RT 2V HISTORY: 66 years-old Female eval foreign body, catch scratch, cellulitis acute right forearm pain with soft tissue injury COMPARISON: None TECHNIQUE: 2 views of the right forearm FINDINGS: There is moderate diffuse soft tissue swelling. There is a focus of soft tissue gas projected over the radial aspect of the mid to distal forearm. No opaque foreign body. 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 No acute fracture, dislocation or osseous erosion. IMPRESSION: 1. No acute fracture or opaque foreign body. 2. Moderate diffuse soft tissue swelling with small focus of soft tissue gas projecting over the volar radial mid to distal forearm suggestive of penetrating injury. ACT 112: Negative or not required by law. The above report was generated using voice recognition software. It may contain grammatical, syntax or spelling errors. Electronically signed by: Raphael Gardiner M.D. 08/26/2021 10:33 AM PG Care Time/CCT Total # of Minutes Spent Total Time Spent with Patient: Total time spent is greater than 50% in coordination of care (as documented) at patient's floor/unit and/or counseling patient: Coding Level of Care Code 15252 Subseq Hosp Care Lvl 2 Diagnoses Cat-scratch disease A28.1 Depression F32.A DVT prophylaxis Z29.9 Abscess of arm, right L02.413 Cellulitis of arm, right L03.113
[2021-08-26] MEDS ORDERED: NON-FORMULARY MEDICATION (Cariprazine [Vraylar] 1.5 mg Capsule) PO SCH (09:00)
[2021-08-26] MEDS: buPROPion SR 150 MG TABCR PO SCH (09:12)
[2021-08-26] MEDS: rifAMPin 300 MG CAPSULE PO SCH (09:13)
[2021-08-26] MEDS: HEPARIN SOD 5,000 UNIT/0.5 ML VIAL SQ SCH ×2 (09:13→20:11)
[2021-08-26] MEDS: AZITHROMYCIN 500 MG in DEXTROSE 5% 250 ML IV SCH (09:21)
[2021-08-26] MEDS: oxyCODONE HCL IR 5 MG TAB (IMMEDIATE RELEASE) PO PRN ×2 (09:25→15:32)
[2021-08-26] MEDS: DULoxetine HCL 60 MG CAP PO SCH ×2 (09:40→20:11)
--- NOTE | 2021-08-26 10:34 | XRay Report ---
XR forearm RT 2V HISTORY: 66 years-old Female eval foreign body, catch scratch, cellulitis acute right forearm pain w ith soft tissue injury COMPARISON: None TECHNIQUE: 2 views of the right forearm FINDINGS: There is moderate diffuse soft tissue swelling. There is a focus of soft tissue gas projected over th e radial aspect of the mid to distal forearm. No opaque foreign body. Mild osteoarthritis of the wris t and elbow. No acute fracture, dislocation or osseous erosion. IMPRESSION: 1. No acute fracture or opaque foreign body. 2. Moderate diffuse soft tissue swelling with small focus of soft tissue gas projecting over the vola r radial mid to distal forearm suggestive of penetrating injury. ACT 112: Negative or not required by law. The above report was generated using voice recognition software. It may contain grammatical, syntax o r spelling errors. Electronically signed by: Raphael Gardiner M.D. 08/26/2021 10:33 AM
[2021-08-26] MEDS: VANCOMYCIN HCL 1,500 MG in SODIUM CHLORIDE 0.9% 500 ML IV SCH ×2 (11:28→23:15)
[2021-08-27] MEDS: oxyCODONE HCL IR 5 MG TAB (IMMEDIATE RELEASE) PO PRN ×2 (07:33→17:12)
--- NOTE | 2021-08-27 08:19 | Hospitalist Progress Note ---
Date of Service August 27, 2021 Assessment & Plan Admission and Anticipated Discharge Date Admission Date: August 25, 2021 Results & Data Results & Data ([facility]) Vital Signs (Past 12 Hours) Vital Signs Temp Pulse Resp BP Pulse Ox 08/27/21 07:07 36.6 C 76 18 176/64 H 95 08/26/21 22:53 36.8 C 67 18 171/87 H 95 PG Care Time/CCT Total # of Minutes Spent Total Time Spent with Patient: Total time spent is greater than 50% in coordination of care (as documented) at patient's floor/unit and/or counseling patient: Coding
[2021-08-27] MEDS: buPROPion SR 150 MG TABCR PO SCH (08:40)
[2021-08-27] MEDS: rifAMPin 300 MG CAPSULE PO SCH (08:40)
[2021-08-27] MEDS: DULoxetine HCL 60 MG CAP PO SCH ×2 (08:40→20:57)
[2021-08-27] MEDS: HEPARIN SOD 5,000 UNIT/0.5 ML VIAL SQ SCH ×2 (08:41→20:57)
[2021-08-27] MEDS: AZITHROMYCIN 500 MG in DEXTROSE 5% 250 ML IV SCH (08:48)
[2021-08-27] MEDS ORDERED: VANCOMYCIN TROUGH ONE (10:30)
[2021-08-27 10:59] LABS: Hematocrit (blood only) 40.3 % (37-47); Hemoglobin 13.7 g/dL (12.0-16.0); Mean Corpuscular Hemoglobin 30.7 pg (25-34); Mean Corpuscular Volume 90.4 fL (80-100); Mean Platelet Volume 8.6 fL (7.4-10.4); Platelet Count 404 K/uL (130-400); RDW Coefficient of Variation 12.4 % (11.5-14.5); RDW Standard Deviation 40.4 fL (36.4-46.3); Red Blood Count 4.46 M/uL (4.2-5.4); White Blood Count 8.05 K/uL (4.8-10.8)
[2021-08-27 11:17] LABS: BUN Creatinine Ratio 14.7 (10-20); Creatinine Clr Calc Pharmacy 102.2 ml/min; Est GFR (African American) 107.1 ml/min; Est GFR (Non-African American) 92.4 ml/min; Potassium 3.8 mmol/L (3.5-5.1)
--- NOTE | 2021-08-27 11:31 | Discharge Summary ---
Date of Service August 27, 2021 Admission HPI Per Admitting Provider 66-year-old female with health problems recently related to depression who presents with about a 5-day prehospital history of increased redness to her right arm. Patient believes she was scratched by a barn cat at her brother's farm. Patient states that she did see [facility] in [facility] where she was given some dog amoxicillin. Patient states she has taken that for the last 2 days but has only had progression of her redness and swelling and tenderness. There is some minor discharge. There is redness spreading up the inner part of her right arm. There is no significant lymphadenopathy at this time. In the emergency department there is concern for cat scratch disease. Reportedly the emergency room physicians legal assistant is going to perform an I&D and get deep tissue cultures. After collaboration with the emergency room pharmacist we felt best to treat this aggressively as she does have evidence of lymphangitis subsequently she was given vancomycin azithromycin and rifampin and these will be continued pending the results of her cultures to be worrisome for Bartonella henselae. Otherwise the patient denies any thing with the exception of decreased appetite otherwise she has no chest pain pressure shortness of breath coughing symptoms of COVID diarrhea or urinary problems Discharge Exam General: WD/WN, obese female, sitting up in bed, NAD Eyes anicteric, pupils equal ENT: mmm, trachea midline without deviation Resp: CTAB, no w/c/r, on RA CV: RRR, no m/r/g, no edema, calves non-tender GI: +BS, soft, non-tender : no burgess Psych: AOx3, pleasant and cooperative MSK/Skin/Neuro: --> RUE with erythema to volar aspect of forearm, packing and dressing removed, purulent/bloody drainage noted from I&D site, tender to palpation, decreased erythema/streaking to axillae and appears to be contained to forearm currently. NVI, fingers mobile, pulses palpable. 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 GS with many gram positive cocci --> strep species Xray to ensure no foreign body/enedelia involvement --> 1. No acute fracture or opaque foreign body.2. Moderate diffuse soft tissue swelling with small focus of soft tissue gas projecting over the volar radial mid to distal forearm suggestive of penetrating injury. --> Focus of soft tissue gas over volar radial mid-distal forearm is in site of I&D, no need for MRI/CT at this time as discussed with orthopedics oncology nurse navigator Continued on Vancomycin, Azithromycin, Rifampin--> decreased erythema/edema WBC normal CX with strep species, anaerobic cx pending but planning to send on Augmentin (total 10 day)/Azithromycin (total 5 day) Pain control--> utilizing PO, and sent short rx at d/c Blood cultures NGTD Wound RN seen --> packing changed. To utilize aquacell and cover with optifoam. Change every 3 days or sooner prn drainage. F/u [facility] on Monday, wound center appointment on Sep 06 at 8am (2) Depression: Plan: Vraylar to be brought from home -- patient assistance has not paid for this medication and patient has not taken in 2 weeks. NO acute needs at this time Patient is maintained on her Wellbutrin, and Cymbalta. (3) DVT prophylaxis: Plan: Heparin SQ while inpatient Wound RN to see while inpatient (4) Abscess of arm, right: Plan: I&D as above, abx.Cx as above (5) Cellulitis of arm, right: Plan: improving with treatment as above (2) Depression: (3) DVT prophylaxis: (4) Abscess of arm, right: (5) Cellulitis of arm, right: continued inpatient stay on abx, monitor cx, possible d/c in AM on oral abx if continued improvement Discharge Plan Discharge Items Patient Disposition: Home - Self-Care Reason For Visit: CAT SCRATHC DISEASE,FOREARM ABSCESS Discharge Diagnosis: Cellulitis with Abscess Goals: You have been hospitalized for an acute medical problem. During your stay at [facility], we have made an effort to correct the problem that brought you to the hospital while keeping you as comfortable as possible. Medications were used to bring your condition under control and your discharge instructions will include directions for any medications you should take after leaving the hospital. Please make sure you see your Primary Care Provider as part of your follow up plan. Activity: Resume your previous activity Non-emergency contact: Primary Care Provider Call non-emergency contact if: you have any medication questions, your symptoms worsen, your pain is worsening, your pain is unusual for you and you have a feve r Follow-up/Referrals: PCP,PINKY [Primary Care Provider] - 08/31/21 11:50 am ([facility] appt. on 08/31/21 at 11:50am to change dressing on your arm.) Diet: Regular Addtl Attending Provider Instructions: You have been hospitalized for an infection from cat bite last week which did not respond to oral antibiotics outpatient. You had an I&D of the abscess and cultures are showing strep species and you are being sent home on oral antibiotics to complete treatment as follows: * Augmentin one tablet by mouth TWICE daily for total 10 days, you already received 3 days and have a dose for tonight and then 7 more days * Azithromycin 500mg by mouth daily -- you got 3 doses and need two more days to have added coverage given cat bite You have been made an appointment with [facility] on Monday for continued monitoring/wound change and wound care appointment on September 06 at 8am. You have had packing changed and in the meantime have been provided with Aquacel to fill with a strip of Aquacel ag and cover with Optifoam. Please change this every 2-3 days or as needed sooner for increased drainage. You should follow up with [facility] and wound care for continued monitoring. Please return to the emergency department with any repeat fevers/chills, chest pain, shortness of breath, worsening redness/pain, or any other symptoms concerning for you. You have been sent a short prescription of pain medication to use as needed for breakthrough pain and can use Tylenol for non-severe pain. You have also been sent a prescription for hydroxyzine (you got a dose of this while inpatient) to use as needed for anxiety/sleep. You may take this up to 2-3 times per day for symptom control. It has been a pleasure being a part of the medical team providing for you while you have been in the hospital. Take care! Pending Studies at Discharge: Yes Studies:: Blood cultures -- no growth to date Wound culture -- strep species, sensitivities pending Stand-Alone Forms: My [facility], Opioid Pain Management Medications and DC Order Prescriptions: New azithromycin 500 mg tablet 500 mg PO DAILY 2 Days Qty: 2 RF: 0 amoxicillin-pot clavulanate [Augmentin] 875-125 mg tablet 1 tab PO BID 7 Days Qty: 15 RF: 0 oxycodone 5 mg tablet 5 mg PO Q6H PRN (Reason: pain) Qty: 12 RF: 0 hydroxyzine HCl 10 mg tablet 10 mg PO Q8H PRN (Reason: anxiety) Qty: 30 RF: 0 Continued bupropion HCl [Wellbutrin SR] 150 mg Tablet Sustained-Release 12 Hr 150 mg PO DAILY RF: 0 ibuprofen [Advil] 200 mg Tablet 200 mg PO Q6H PRN (Reason: Pain) RF: 0 aspirin [Baby Aspirin] 81 mg Tablet,Chewable 81 mg PO DAILY PRN (Reason: Pain) RF: 0 duloxetine [Cymbalta] 60 mg Capsule,Delayed Release(Dr/Ec) 60 mg PO BID RF: 0 Discontinued amoxicillin 500 mg Tablet 500 mg PO BID RF: 0 Vraylar 1.5 mg Capsule 1.5 mg PO DAILY RF: 0 Admission Data Admit Date/Time: 08/25/21 12:13 Attending Provider: Jaya Segura Admit Provider: Carlos Duong Primary Care Provider: PCP,NO Other Providers: Carlos Duong
[2021-08-27] MEDS: VANCOMYCIN HCL 1,500 MG in SODIUM CHLORIDE 0.9% 500 ML IV SCH (11:35)
[2021-08-27] MEDS ORDERED: hydrOXYzine HCl 10 MG TAB PO ONE (12:00)
--- NOTE | 2021-08-27 16:32 | Ultrasound Report ---
US soft tissue ext ltd right forearm CLINICAL HISTORY: cat bite, eval for additional abscess -- R FOREARM TECHNIQUE: Real-time grayscale sonographic images of the right forearm were obtained. Comparison: None available at the time of this dictation. FINDINGS: There is edema seen throughout the superficial soft tissues of the right anterior forearm. At the site of the puncture wound, there is a 9 x 17 x 8 mm complex fluid collection present with michelle rounding increased flow seen. The findings are characteristic of a small subcutaneous abscess. IMPRESSION: Evidence for small subcutaneous abscess at the site of puncture wound. Surrounding edema is also present. ACT 112: Negative or not required by law. Electronically signed by: Jose De La Torre M.D. 08/27/2021 4:31 PM
[2021-08-27] MEDS ORDERED: hydrALAZINE HCL 20 MG/ML VIAL IV PRN (16:48)
[2021-08-27] MEDS ORDERED: hydrOXYzine HCl 10 MG TAB PO PRN (17:13)
--- NOTE | 2021-08-27 17:15 | Hospitalist Progress Note ---
Date of Service August 27, 2021 Assessment & Plan (1) Cat-scratch disease: Plan: Patient with significant infection from a cat scratch with concern for Bartonella henselae/cellulitis/lymphangitis -- reported possible bite by barn cat last Monday, got Amoxicillin from [facility] on Monday, took 2 doses without improvement and reported chills/worsening erythema/pain I&D in ER --> Cx pending. GS with many gram positive cocci --> strep species Xray to ensure no foreign body/enedelia involvement--> 1. No acute fracture or opaque foreign body.2. Moderate diffuse soft tissue swelling with small focus of soft tissue gas projecting over the volar radial mid to distal forearm suggestive of penetrating injury. --> Focus of soft tissue gas over volar radial mid-distal forearm is in site of I&D, no need for MRI/CT at this time as discussed with orthopedics rn provider relations at th at time Continued on Vancomycin, Azithromycin, Rifampin--> decreased erythema/edema CX with strep intermedius, can de-escalate to Augmentin --> Complete 10-14 days on d/c along with Azithro for total 5 days WBC wnl, afebrile CM arranged to be seen by [facility] on Monday for continued monitoring. Wound RN seen, examined. Aqualcell in meantime/optifoam. Change every 3 days or sooner prn drainage. until seen by Wound Sep 06 8AM This afternoon more indurated, concern for additional abscess, and initial incision small/possible close prior to draining completely. Discussed with ortho PA, rec MRI w/ contrast, official consult for Dr Yun in AM Ortho consult placed (2) Depression: Plan: and anxiety no longer on vraylar -- not able to pay for such Continued wellbutrin, cymbalta Added vistaril 10mg x1, continue prn if effective (3) DVT prophylaxis: Plan: Heparin SQ while inpatient Wound RN while inpatient-- see instructions (4) Abscess of arm, right: Plan: I&D as above, abx.Cx as above (5) Cellulitis of arm, right: Plan: improving with treatment as above, however with abscess as above MRI pending , ortho consulted (2) Depression: (3) DVT prophylaxis: (4) Abscess of arm, right: (5) Cellulitis of arm, right: Admission and Anticipated Discharge Date Admission Date: August 25, 2021 Supervising Physician Co-Signing Physician Notes Attending Attestation - Pt seen & examined, chart reviewed in detail, care plan d/w [place]. I agree w/ the pena components of her documentation. During my bedside visit she was resting comfortably in the chair. c/o focal pain over previous I/D site along with swelling. surrounding cellulitis is improved on right arm, however. Exam - gen - NAD heart - RRR lungs - CTA b/l abd - soft NT skin - right forearm - firm, tender area of swelling with inflammation/erythema; previous incision site is about 2-3mm in diameter; there is little to no drainage; this area of swelling extends about 3cm in each direction; there is no surrounding cellulitis musculo - able to actively flex/extend the right elbow and right wrist A/P: Cellulitis right arm due to cat scratch ?ongoing abscess of right forearm despite recent I/D? would hold on discharge obtain u/s of the right forearm if any abscess is present then formal ortho consult place back on IV antibiotics Jaya Segura MD Subjective patient eval this morning pain improved decreased erythema to forearm, still some induration but more mobile hopeful for d/c today, was awaiting cx final this afternoon strep intermedius but felt possible other abscess and req US for further investigation. showed complex abscess, discussed with Amandeep PALOMINO earlier in week. Reached back out, rec MRI w/ contrast and consultation with Dr Yun for AM. No further fevers/chills. No cp/sob, abd pain, nausea or vomiting at this time. Lots of anxiety about bills/paing --> arranged with CM to see [facility] on Monday for changes/monitoring and looking into pancho for MA. Discussed with psych -- utilize vistaril 10mg prn for symptoms. if effective can continue on d/c. Review of Systems Review of Systems: All systems reviewed & are unremarkable except as noted in HPI & below Physical Exam Physical Exam: General: WD/WN, obese female, sitting up in bed, NAD Eyes anicteric, pupils equal ENT: mmm, trachea midline without deviation Resp: CTAB, no w/c/r, on RA CV: RRR, no m/r/g, no edema, calves non-tender GI: +BS, soft, non-tender : no burgess Psych: AOx3, pleasant and cooperative MSK/Skin/Neuro: --> RUE with erythema to volar aspect of forearm -- decreased erythema to site of injury with surrounding induration/more mobile this morning but increased this afternoon, covered with optifoam (aquacell under). tender to palpation. NVI/fingers mobile, pulses palpable, ROM intact/able to make fist/squeeze hand no issues Results & Data Results & Data ([facility]) Vital Signs (Past 12 Hours) Vital Signs Temp Pulse Resp BP Pulse Ox 08/27/21 15:41 36.8 C 76 18 189/84 H 94 08/27/21 07:07 36.6 C 76 18 176/64 H 95 Laboratory Results 08/27/21 08/27/21 08/27/21 Range/Units 10:24 10:24 10:24 WBC 8.05 (4.8-10.8) K/uL RBC 4.46 (4.2-5.4) M/uL Hgb 13.7 (12.0-16.0) g/dL Hct 40.3 (37-47) % MCV 90.4 (80-100) fL MCH 30.7 (25-34) pg MCHC 34.0 (32-36) g/dL RDW Std Deviation 40.4 (36.4-46.3) fL RDW Coeff of Hermelinda 12.4 (11.5-14.5) % Plt Count 404 H (130-400) K/uL MPV 8.6 (7.4-10.4) fL Sodium 136 (136-145) mmol/L Potassium 3.8 (3.5-5.1) mmol/L Chloride 105 (98-107) mmol/L Carbon Dioxide 24 (21-32) mmol/L Anion Gap 7 (3-11) BUN 10 (6-23) mg/dl Creatinine 0.68 (0.6-1.2) mg/dl Est Cr Clr Drug Dosing 102.2 ml/min Est GFR ( Amer) 107.1 ml/min Est GFR (Non-Af Amer) 92.4 ml/min BUN/Creatinine Ratio 14.7 (10-20) Glucose 189 H (70-99) mg/dl Calcium 9.0 (8.5-10.1) mg/dl Vancomycin Trough 7.8 L (10-20) mcg/ml Diagnostic Findings Chest X-Ray 08/25/21 10:14 XR chest 1V portable CLINICAL HISTORY: Sepsis. COMPARISON STUDY: No previous studies for comparison. FINDINGS: No pneumothorax or pleural effusion is present. Linear left midlung opacity reflects atelectasis. There is no consolidation or evidence for pulmonary edema. Mild to moderate enlargement of cardiac silhouette is present. IMPRESSION: 1. No acute cardiopulmonary findings. 2. Mild to moderate enlargement of the cardiac silhouette. ACT 112: Negative or not required by law. Electronically signed by: Mark Quick M.D. 08/25/2021 11:04 AM Forearm X-Ray 08/26/21 09:44 XR forearm RT 2V HISTORY: 66 years-old Female eval foreign body, catch scratch, cellulitis acute right forearm pain with soft tissue injury COMPARISON: None TECHNIQUE: 2 views of the right forearm FINDINGS: There is moderate diffuse soft tissue swelling. There is a focus of soft tissue gas projected over the radial aspect of the mid to distal forearm. No opaque foreign body. 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 No acute fracture, dislocation or osseous erosion. IMPRESSION: 1. No acute fracture or opaque foreign body. 2. Moderate diffuse soft tissue swelling with small focus of soft tissue gas projecting over the volar radial mid to distal forearm suggestive of penetrating injury. ACT 112: Negative or not required by law. The above report was generated using voice recognition software. It may contain grammatical, syntax or spelling errors. Electronically signed by: Raphael Gardiner M.D. 08/26/2021 10:33 AM Soft Tissue Ultrasound 08/27/21 15:31 US soft tissue ext ltd right forearm CLINICAL HISTORY: cat bite, eval for additional abscess -- R FOREARM TECHNIQUE: Real-time grayscale sonographic images of the right forearm were obtained. Comparison: None available at the time of this dictation. FINDINGS: There is edema seen throughout the superficial soft tissues of the right anterior forearm. At the site of the puncture wound, there is a 9 x 17 x 8 mm complex fluid collection present with surrounding increased flow seen. The findings are characteristic of a small subcutaneous abscess. IMPRESSION: Evidence for small subcutaneous abscess at the site of puncture wound. Surrounding edema is also present. ACT 112: Negative or not required by law. Electronically signed by: Jose De La Torre M.D. 08/27/2021 4:31 PM PG Care Time/CCT Total # of Minutes Spent Total Time Spent with Patient: Total time spent is greater than 50% in coordination of care (as documented) at patient's floor/unit and/or counseling patient: Coding Level of Care Code 29014 Subseq Hosp Care Lvl 3 Diagnoses Cat-scratch disease A28.1 Depression F32.A DVT prophylaxis Z29.9 Abscess of arm, right L02.413 Cellulitis of arm, right L03.113
[2021-08-27] MEDS ORDERED: amLODIPine BESYLATE 5 MG TAB PO ONE (17:45)
--- NOTE | 2021-08-27 18:12 | Orthopedic Consultation ---
Date of Consultation August 27, 2021 Assessment & Plan (1) Cat-scratch disease: Continue IV antibiotics (2) Abscess of arm, right: Streptococcus intermedius infection right forearm status post cat scratch. Concern of the copious amount of drainage still that has suboptimal treatment with I&D performed in ER. May need a deeper irrigation debridement of the abscess to improve recovery time and control infection better. There certainly has been improvement per photographs and the erythema and swelling in the arm its more localized now. Agree with MRI evaluation to visualize extent of the abscess. Patient concerned about losing time off of work and length of recovery required. Patient may require home IV antibiotics and this is an issue due to patient's lack of insurance coverage. Possibly could come in for IV antibiotics medical treatment unit. Patient recommended to be n.p.o. at midnight and added on the OR schedule for incision and drainage pending review of status tomorrow and MRI findings. As of yet patient has not agreed to surgical intervention. History of Present Illness Reason for Consultation: Right forearm abscess Attending Physician: Jaya Segura History of Present Illness 66 a female police she was scratched by cat developed an abscess in her forearm had this drained in the emergency room and packing placed has been getting packing. She has been receiving intravenous antibiotics. Allergies Allergy/AdvReac Type Severity Reaction Status Date / Time No Known Allergies Allergy Unverified 08/27/21 10:14 Home Medications Medication Instructions Recorded Confirmed Type amoxicillin 500 mg tablet 500 mg PO BID 08/25/21 08/25/21 History aspirin 81 mg chewable tablet 81 mg PO DAILY PRN 08/25/21 08/25/21 History bupropion HCl 150 mg tablet,12 hr 150 mg PO DAILY 08/25/21 08/25/21 History sustained-release (Wellbutrin SR) cariprazine 1.5 mg capsule 1.5 mg PO DAILY 08/25/21 08/25/21 History (Vraylar) duloxetine 60 mg capsule,delayed 60 mg PO BID 08/25/21 08/25/21 History release (Cymbalta) ibuprofen 200 mg tablet (Advil) 200 mg PO Q6H PRN 08/25/21 08/25/21 History amoxicillin 875 mg-potassium 1 tab PO BID 7 Days #15 tab 08/27/21 Rx clavulanate 125 mg tablet (Augmentin) azithromycin 500 mg tablet 500 mg PO DAILY 2 Days #2 tab 08/27/21 Rx hydroxyzine HCl 10 mg tablet 10 mg PO Q8H PRN #30 tab 08/27/21 Rx oxycodone 5 mg tablet 5 mg PO Q6H PRN #12 tab 08/27/21 Rx Patient History Medical History Depression Social History Smoking Status: Never smoker Hx Alcohol Use: Yes Alcohol type: wine Hx Substance Use: No Preferred Language: Latvian Communication Ability: Effective Manager Equipment Required: No Beliefs That Will Affect Care: None Current Living Situation: Alone Feels Safe at Home: Yes Assistive Devices: None Review of Systems Review of Systems: Does not feel febrile has normal use of her hand no chills or fever Physical Exam Physical Exam: Wound distal third forearm in the volar radial side of her forearm with marked induration surrounding an area that has packing in it with an opening that is about 7 mm x 5 mm in diameter. When packing was removed there was abundant drainage from the wound which was cloudy type drainage. There are some faint surrounding erythema around the arm improved from prior images that were taken in the medical record. Tendon functions intact distally, distal circulation and sensation normal. Results & Data ([facility]) Vital Signs (Past 12 Hours) Vital Signs Temp Pulse Resp BP Pulse Ox 08/27/21 15:41 36.8 C 76 18 189/84 H 94 08/27/21 07:07 36.6 C 76 18 176/64 H 95 Laboratory Results White blood cell count 8, glucose 189 elevated Diagnostic Findings Soft tissue ultrasound demonstrates small residual abscess subcutaneous tissues
[2021-08-27] MEDS: AMPICILLIN/SULBACTAM SOD 3,000 MG in DEXTROSE 5% 100 ML IV SCH ×2 (18:43→23:58)
[2021-08-27] MEDS ORDERED: VANCOMYCIN HCL 1,250 MG in SODIUM CHLORIDE 0.9% 250 ML IV SCH (20:00)
[2021-08-27] MEDS ORDERED: GADOBUTROL 65ML VIAL IV ONE (20:16)
--- NOTE | 2021-08-27 21:12 | Magnetic Resonance Report ---
MR forearm RT wo/w con CLINICAL HISTORY: R forearm cellulitis/abscess, hx cat bite COMPARISON STUDY: Ultrasound of the soft tissues of forearm from 08/27/2021 TECHNIQUE: Multiplanar multisequence images of the right forearm were performed without and with 10. 4 mL of Gadavist contrast. A krissy was placed site of swelling/abscess FINDINGS: Bones: Homogeneous marrow signal is seen throughout the imaged bones. There is no evidence for marrow edema or marrow replacement. There is no evidence for acute or old fracture. Joints: The joint spaces are maintained. There is no evidence for an intra-articular effusion. The b ones are in anatomic alignment. Muscles: Homogeneous signal is demonstrated within the muscles of the forearm. There is no muscle fiona ma or hematoma. Tendons and ligaments: The imaged tendons and ligaments within the forearm are within normal limits. Soft tissues: There is diffuse subcutaneous edema seen along the volar aspect of the forearm. At the site of the marker, there is a focal fluid collection within the subcutaneous fat measuring approxim ately 12 x 8 mm. Following contrast administration, there is enhancement surrounding the fluid collec tion with the findings characteristic of an abscess. Diffuse enhancement of the subcutaneous fat is a lso seen representing cellulitis. IMPRESSION: 1. MR demonstrating a focal fluid collection within the volar aspect of the forearm with rim-enhancin g following contrast administration characteristic of a small abscess. 2. There is also diffuse enhancement of the subcutaneous fat of the volar aspect of the forearm repre senting cellulitis. ACT 112: Negative or not required by law. Electronically signed by: Jose De La Torre M.D. 08/27/2021 9:11 PM
[2021-08-28] MEDS: AMPICILLIN/SULBACTAM SOD 3,000 MG in DEXTROSE 5% 100 ML IV SCH (05:33)
--- NOTE | 2021-08-28 07:37 | Anesthesiology Consultation ---
Date of Service August 28, 2021 Assessment & Plan (1) Encounter for pre-operative examination: Chart Review Chart Review: Acceptable Risk for Surgery History Surgery Operation Date: 08/28/21 10:00 Proposed Procedures p Incision and Drainage Right Forearm(Right) - Andrea Yun MD Height/Weight Height: 5 ft 6 in Weight: 104.78 kg Allergies Allergy/AdvReac Type Severity Reaction Status Date / Time No Known Allergies Allergy Unverified 08/27/21 10:14 Medications Home Medications Medication Instructions Recorded Confirmed Last Taken amoxicillin 500 mg tablet 500 mg PO BID 08/25/21 08/25/21 08/25/21 aspirin 81 mg chewable tablet 81 mg PO DAILY PRN 08/25/21 08/25/21 08/25/21 03:00 bupropion HCl 150 mg tablet,12 hr 150 mg PO DAILY 08/25/21 08/25/21 08/25/21 sustained-release (Wellbutrin SR) cariprazine 1.5 mg capsule 1.5 mg PO DAILY 08/25/21 08/25/21 08/11/21 (Vraylar) duloxetine 60 mg capsule,delayed 60 mg PO BID 08/25/21 08/25/21 08/25/21 release (Cymbalta) ibuprofen 200 mg tablet (Advil) 200 mg PO Q6H PRN 08/25/21 08/25/21 08/25/21 amoxicillin 875 mg-potassium 1 tab PO BID 7 Days #15 tab 08/27/21 Unknown clavulanate 125 mg tablet (Augmentin) azithromycin 500 mg tablet 500 mg PO DAILY 2 Days #2 tab 08/27/21 Unknown hydroxyzine HCl 10 mg tablet 10 mg PO Q8H PRN #30 tab 08/27/21 Unknown oxycodone 5 mg tablet 5 mg PO Q6H PRN #12 tab 08/27/21 Unknown Active Medications Generic Name Dose Route Start Last Admin Trade Name Freq PRN Reason Stop Dose Admin Acetaminophen 1,000 mg 08/25/21 13:51 08/28/21 02:31 Acetaminophen 500 Mg Tab PO 09/24/21 13:50 1,000 mg Q6H PRN Administration pain/fever Bupropion HCl 150 mg 08/26/21 09:00 08/27/21 08:40 Bupropion Sr 150 Mg Tabcr PO 09/25/21 08:59 150 mg DAILY BLADE Administration Duloxetine HCl 60 mg 08/25/21 21:00 08/27/21 20:57 Duloxetine Hcl 60 Mg Cap PO 09/24/21 20:59 60 mg BID BLADE Administration Heparin Sodium (Porcine) 5,000 units 08/25/21 21:00 08/27/21 20:57 Heparin Sod 5,000 Unit/0.5 Ml Vial SQ 09/24/21 20:59 5,000 units Q12 BLADE Administration Hydroxyzine HCl 10 mg 08/27/21 17:13 08/27/21 18:42 Hydroxyzine Hcl 10 Mg Tab PO 09/26/21 17:12 10 mg BID PRN Administration Anxiety Azithromycin 500 mg/ Dextrose 255 mls @ 125 mls/hr 08/26/21 09:00 08/27/21 11:35 IV 09/02/21 08:59 Infused DAILY BLADE Infusion Ampicillin Sodium/Sulbactam 108 mls @ 200 mls/hr 08/27/21 17:45 08/28/21 06:43 Sodium 3,000 mg/ Dextrose IV 09/03/21 17:44 Infused Q6H BLADE Infusion Protocol Oxycodone HCl 5 - 10 mg 08/27/21 08:18 08/27/21 17:12 Oxycodone Hcl Ir 5 Mg Tab (Immediate Release) PO 09/10/21 08:17 10 mg Q6H PRN Administration pain Past Medical History Medical History (Updated 08/28/21 @ 07:39 by Jeevan Avina MD) Depression Obesity Past Surgical History no known history Social History Smoking Status: Never smoker Hx Alcohol Use: Yes Alcohol type: wine alcohol intake frequency: holidays/special occasions only Hx Substance Use: No Physical Exam Vital Signs Last Vital Signs Temp 36.6 C 08/28/21 07:00 Pulse 74 08/28/21 07:00 Resp 16 08/28/21 07:00 BP 157/79 H 08/28/21 07:00 Pulse Ox 96 08/28/21 07:00 Testing Laboratory Results 08/27/21 10:24 08/27/21 10:24 PT 9.5 Seconds (9.0-12.0) 08/25/21 10:40 INR 0.9 (0.9-1.1) 08/25/21 10:40 APTT 28.5 Seconds (21.0-31.0) 08/25/21 10:40 Urine Color Dark Yellow 08/25/21 16: Urine Appearance Clear (Clear) 08/25/21 16: Urine pH 5.0 (4.5-7.5) 08/25/21 16: Ur Specific [place] 1.023 (1.000-1.030) 08/25/21 16: Urine Protein Negative (Negative) 08/25/21 16: Urine Glucose (UA) Negative (Negative) 08/25/21 16: Urine Ketones Trace (Negative) H 08/25/21 16: Urine Nitrite Positive (Negative) A 08/25/21 16: Ur Leukocyte Esterase Trace (Negative) H 08/25/21 16: Urine WBC (Auto) 1-5 /hpf (0-5) 08/25/21 16: Urine RBC (Auto) 10-30 /hpf (0-4) H 08/25/21 16: U Hyaline Cast (Auto) 1-5 /lpf (0-5) 08/25/21 16: U Epithel Cells (Auto) 20-30 /lpf (0-5) H 08/25/21 16:28 Urine Bacteria (Auto) Negative (Negative) 08/25/21 16:28 08/25/21 12:30 Gram Stain - Final Arm,Right Deep Wound Culture - Final Streptococcus intermedius 08/25/21 10:50 Aerobic Blood Culture - Preliminary Blood No growth in Aerobic bottle after 48 hours. Anaerobic Blood Culture - Preliminary No growth in Anaerobic bottle after 48 hours. 08/25/21 10:40 Aerobic Blood Culture - Preliminary Blood No growth in Aerobic bottle after 48 hours. Anaerobic Blood Culture - Preliminary No growth in Anaerobic bottle after 48 hours. Electrocardiogram Date: 08/25/21 Findings: + NSR @ (76) Chest X-Ray Date: 08/25/21 Findings: + NAD
[2021-08-28] MEDS ORDERED: AMOXICILLIN/CLAVULANATE 875 MG TAB PO SCH (08:00)
--- NOTE | 2021-08-28 08:03 | Hospitalist Progress Note ---
Date of Service August 28, 2021 Assessment & Plan Admission and Anticipated Discharge Date Admission Date: August 25, 2021 Subjective patient evaluated this morning anxious about need for I&D and wanting to know if can be done bedside. will discuss with ortho, but she is also wondering about need given the improvement with current abx discussed abscess and should have I&D to allow for proper healing, unfortunately may be different case if initial incision was slightly larger no fever, chills. vistaril helping with anxiety and available prn amlodipine started for elevated BP -- no symptoms and thankful for adjustment as had been running high at home but no PCP for medications. Will send rx at d/c. Currently NPO for possible OR but again will see if ortho able to do at bedside. Results & Data Results & Data ([facility]) Vital Signs (Past 12 Hours) Vital Signs Temp Pulse Resp BP Pulse Ox 08/28/21 07:00 36.6 C 74 16 157/79 H 96 08/27/21 23:00 36.7 C 69 18 156/76 H 95 Laboratory Results Chest X-Ray 08/25/21 10:14 XR chest 1V portable CLINICAL HISTORY: Sepsis. COMPARISON STUDY: No previous studies for comparison. FINDINGS: No pneumothorax or pleural effusion is present. Linear left midlung opacity reflects atelectasis. There is no consolidation or evidence for pulmonary edema. Mild to moderate enlargement of cardiac silhouette is present. IMPRESSION: 1. No acute cardiopulmonary findings. 2. Mild to moderate enlargement of the cardiac silhouette. ACT 112: Negative or not required by law. Electronically signed by: Mark Quick M.D. 08/25/2021 11:04 AM Forearm X-Ray 08/26/21 09:44 XR forearm RT 2V HISTORY: 66 years-old Female eval foreign body, catch scratch, cellulitis acute right forearm pain with soft tissue injury COMPARISON: None TECHNIQUE: 2 views of the right forearm FINDINGS: There is moderate diffuse soft tissue swelling. There is a focus of soft tissue gas projected over the radial aspect of the mid to distal forearm. No opaque foreign body. 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 No acute fracture, dislocation or osseous erosion. IMPRESSION: 1. No acute fracture or opaque foreign body. 2. Moderate diffuse soft tissue swelling with small focus of soft tissue gas projecting over the volar radial mid to distal forearm suggestive of penetrating injury. ACT 112: Negative or not required by law. The above report was generated using voice recognition software. It may contain grammatical, syntax or spelling errors. Electronically signed by: Raphael Gardiner M.D. 08/26/2021 10:33 AM Soft Tissue Ultrasound 08/27/21 15:31 US soft tissue ext ltd right forearm CLINICAL HISTORY: cat bite, eval for additional abscess -- R FOREARM TECHNIQUE: Real-time grayscale sonographic images of the right forearm were obtained. Comparison: None available at the time of this dictation. FINDINGS: There is edema seen throughout the superficial soft tissues of the right anterior forearm. At the site of the puncture wound, there is a 9 x 17 x 8 mm complex fluid collection present with surrounding increased flow seen. The findings are characteristic of a small subcutaneous abscess. IMPRESSION: Evidence for small subcutaneous abscess at the site of puncture wound. Surrounding edema is also present. ACT 112: Negative or not required by law. Electronically signed by: Jose De La Torre M.D. 08/27/2021 4:31 PM Forearm MRI 08/27/21 16:54 MR forearm RT wo/w con CLINICAL HISTORY: R forearm cellulitis/abscess, hx cat bite COMPARISON STUDY: Ultrasound of the soft tissues of forearm from 08/27/2021 TECHNIQUE: Multiplanar multisequence images of the right forearm were performed without and with 10.4 mL of Gadavist contrast. A krissy was placed site of swelling/abscess FINDINGS: Bones: Homogeneous marrow signal is seen throughout the imaged bones. There is no evidence for marrow edema or marrow replacement. There is no evidence for acute or old fracture. Joints: The joint spaces are maintained. There is no evidence for an intra- articular effusion. The bones are in anatomic alignment. Muscles: Homogeneous signal is demonstrated within the muscles of the forearm. There is no muscle edema or hematoma. Tendons and ligaments: The imaged tendons and ligaments within the forearm are within normal limits. Soft tissues: There is diffuse subcutaneous edema seen along the volar aspect of the forearm. At the site of the marker, there is a focal fluid collection within the subcutaneous fat measuring approximately 12 x 8 mm. Following contrast administration, there is enhancement surrounding the fluid collection with the findings characteristic of an abscess. Diffuse enhancement of the subcutaneous fat is also seen representing cellulitis. IMPRESSION: 1. MR demonstrating a focal fluid collection within the volar aspect of the forearm with rim-enhancing following contrast administration characteristic of a small abscess. 2. There is also diffuse enhancement of the subcutaneous fat of the volar aspect of the forearm representing cellulitis. ACT 112: Negative or not required by law. Electronically signed by: Jose De La Torre M.D. 08/27/2021 9:11 PM PG Care Time/CCT Total # of Minutes Spent Total Time Spent with Patient: Total time spent is greater than 50% in coordination of care (as documented) at patient's floor/unit and/or counseling patient: Coding
[2021-08-28] MEDS: AZITHROMYCIN 500 MG in DEXTROSE 5% 250 ML IV SCH (08:29)
[2021-08-28] MEDS: buPROPion SR 150 MG TABCR PO SCH (08:30)
[2021-08-28] MEDS: DULoxetine HCL 60 MG CAP PO SCH (08:30)
[2021-08-28] MEDS: HEPARIN SOD 5,000 UNIT/0.5 ML VIAL SQ SCH (08:56)
[2021-08-28] MEDS ORDERED: amLODIPine BESYLATE 5 MG TAB PO SCH (09:00)
[2021-08-28 09:03] LABS: Hematocrit (blood only) 42.6 % (37-47); Hemoglobin 14.6 g/dL (12.0-16.0); Mean Corpuscular Hemoglobin 30.6 pg (25-34); Mean Corpuscular Hgb Conc 34.3 g/dL (32-36); Mean Corpuscular Volume 89.3 fL (80-100); Mean Platelet Volume 8.5 fL (7.4-10.4); Platelet Count 382 K/uL (130-400); RDW Coefficient of Variation 12.4 % (11.5-14.5); RDW Standard Deviation 40.2 fL (36.4-46.3); Red Blood Count 4.77 M/uL (4.2-5.4); White Blood Count 8.54 K/uL (4.8-10.8)
[2021-08-28 09:36] LABS: BUN Creatinine Ratio 17.6 (10-20); Creatinine Clr Calc Pharmacy 136.3 ml/min; Est GFR (African American) 117.8 ml/min; Est GFR (Non-African American) 101.6 ml/min; Potassium 3.6 mmol/L (3.5-5.1)
--- NOTE | 2021-08-28 10:31 | Discharge Summary ---
Date of Service August 28, 2021 Admission HPI Per Admitting Provider Primary Care Provider: NO PCP 66-year-old female with health problems recently related to depression who presents with about a 5-day prehospital history of increased redness to her right arm. Patient believes she was scratched by a barn cat at her brother's farm. Patient states that she did see [facility] where she was given some dog amoxicillin. Patient states she has taken that for the last 2 days but has only had progression of her redness and swelling and tenderness. There is some minor discharge. There is redness spreading up the inner part of her right arm. There is no significant lymphadenopathy at this time. In the emergency department there is concern for cat scratch disease. Reportedly the emergency room physicians res habilitation assistant is going to perform an I&D and get deep tis gregg cultures. After collaboration with the emergency room pharmacist we felt best to treat this aggressively as she does have evidence of lymphangitis subsequently she was given vancomycin azithromycin and rifampin and these will be continued pending the results of her cultures to be worrisome for Bartonella henselae. Otherwise the patient denies any thing with the exception of decreased appetite otherwise she has no chest pain pressure shortness of breath coughing symptoms of COVID diarrhea or urinary problems Admission Exam Per Admitting Provider The patient appeared well nourished and normally developed. Pale patient is in mild to moderate distress due to pain Vital signs as documented. Head exam is normocephalic atraumatic Neck is without JVD, thyromegaly, or carotid bruits. Lungs are clear to auscultation, no focal loss of breath sounds Cardiac exam, Rhythm is regular.. No murmurs, rubs or gallops. Abdominal exam reveals normal bowel sounds, soft non tender, no masses Right upper extremity has approximately a 4 cm swollen area which is tender and erythematous the erythema spreads around this area to the palmar aspect of her forearm up to the inner aspect of her upper arm but not to her axilla. There is no axillary lymphadenopathy. The dome or top of the swollen area has some new to the skin suggesting it may be beginning to point. Its I&D is not yet been performed but planning to be performed by the emergency room Neurologic exam is alert and oriented, no focal loss of strength or sensation to clearly no loss of sensation to her hands and likewise there is no significant swelling she can still approximate her fingers Psychologically is without concerns for anxiety or depression.. Principal Diagnosis Cat Bite, Cellulitis with Abscess Discharge Exam General: WD/WN, obese female, sitting up in bed, NAD Eyes anicteric, pupils equal ENT: mmm, trachea midline without deviation Resp: CTAB, no w/c/r, on RA CV: RRR, no m/r/g, no edema, calves non-tender GI: +BS, soft, non-tender : no burgess Psych: AOx3, pleasant and cooperative MSK/Skin/Neuro: --> RUE with erythema to volar aspect of forearm -- decreased erythema to site of injury with surrounding induration/more mobile this morning (irrigated by orthopedics), less drainage and opening patent, decreased tenderness to palpation, covered with optifoam (aquacell under). tender to palpation. NVI/fingers mobile, pulses palpable, ROM intact/able to make fist/squeeze hand no issues Discharge Data Allergies Allergy/AdvReac Type Severity Reaction Status Date / Time No Known Allergies Allergy Unverified 08/27/21 10:14 Consultations 08/25/21 12:11 ED Decision to Admit Stat 08/27/21 17:05 Consult Orthopedic Surgery Routine Procedures Performed Operation Date: 08/28/21 10:00 <No data on this case meets the specified criteria> Ordered Studies 08/27/21 15:31 US soft tissue ext ltd Stat 08/27/21 16:54 MR forearm RT wo/w con Routine Hospital Course (1) Cat-scratch disease: Patient with significant infection from a cat scratch with concern for Bartonella henselae/cellulitis/lymphangitis -- reported possible bite by barn cat last Monday, got Amoxicillin from [facility] on Monday, took 2 doses without improvement and reported chills/worsening erythema/pain I&D in ER --> Cx pending. GS with many gram positive cocci --> strep species Xray to ensure no foreign body/enedelia involvement 1. No acute fracture or opaque foreign body. 2. Moderate diffuse soft tissue swelling with small focus of soft tissue gas projecting over the volar radial mid to distal forearm suggestive of penetrating injury. --> Focus of soft tissue gas over volar radial mid-distal forearm is in site of I&D, no need for MRI/CT at this time as discussed with orthopedics environmental marketer at that time Continued on Vancomycin, Azithromycin, Rifampin--> decreased erythema/edema CX with strep intermedius, can de-escalate to Augmentin but concerns for more abscess, MRI ordered. Switched to Unasyn and consulted orthopedics prior to de- escalating to AUgmentin MRI w/w/o contrast right forearm 1. MR demonstrating a focal fluid collection within the volar aspect of the forearm with rim-enhancing following contrast administration characteristic of a small abscess. 2. There is also diffuse enhancement of the subcutaneous fat of the volar aspect of the forearm representing cellulitis. Orthopedics seen again this morning -->Per ortho, "because of improvement clinically he chose to do a bedside irrigation with diluted hydrogen peroxide and saline with copious irrigation of the wound abscess area. This was repacked with packing under sterile technique. New sterile bandage applied. ..." No need for I&D at this time "recommending holding off on a formal incision and drainage operative procedure at this time. Patient will continue on antibiotics has appointments for wound clinic to do packing changes and wound care. If she has reaccumulation of abscess we can see her back at [facility] as an outpatient as needed." Patient feeling better and anxious to be discharged. Transitioned to Augmentin 1 dose prior to discharge to complete 10 day course, 5 total days azithromycin for coverage given cat bite (1 more dose of this) CM arranged to be seen by [facility] on Monday for continued monitoring. Wound RN seen, examined. Aquacell in meantime/Optifoam. Change every 3 days or sooner prn drainage. --> Discharged on Augmentin/Azithromycin, f/u [facility] monday, wound clinic 09/06 at 8am (2) Depression: and anxiety no longer on vraylar -- not able to pay for such Continued wellbutrin, cymbalta Added vistaril 10mg x1, continue prn --> sent rx at discharge (3) Hypertension BP remained elevated with improvement of pain Started amlodipine 5mg daily -- improvement in BP and sent rx at d/c (4) DVT prophylaxis: Plan: Heparin SQ while inpatient Wound RN while inpatient-- see instructions, f/u on the as arranged (5) Abscess of arm, right: Plan: I&D as above, abx.Cx as above. Per ortho, no need for repeat I&D and can d/c oral abx and follow up if worsens. Number provided for office. (6) Cellulitis of arm, right: Plan: improving with treatment as above transitioned to oral abx at d/c as above (2) Depression: (3) DVT prophylaxis: (4) Abscess of arm, right: (5) Cellulitis of arm, right: Total Time Total Time Spent Total Time Spent (In Minutes): 45 Discharge Plan Discharge Items Patient Disposition: Home - Self-Care Reason For Visit: CAT SCRATHC DISEASE,FOREARM ABSCESS Discharge Diagnosis: Cellulitis with Abscess Goals: You have been hospitalized for an acute medical problem. During your stay at [facility], we have made an effort to correct the problem that brought you to the hospital while keeping you as comfortable as possible. Medications were used to bring your condition under control and your discharge instructions will include directions for any medications you should take after leaving the hospital. Please make sure you see your Primary Care Provider as part of your follow up plan. Activity: Resume your previous activity Non-emergency contact: Primary Care Provider Call non-emergency contact if: you have any medication questions, your symptoms worsen, your pain is worsening, your pain is unusual for you and you have a fever Follow-up/Referrals: PCP,PINKY [Primary Care Provider] - 08/31/21 11:50 am ([facility] appt. on 08/31/21 at 11:50am to change dressing on your arm.) Diet: Regular Addtl Attending Provider Instructions: You have been hospitalized for an infection from cat bite last week which did not respond to oral antibiotics outpatient. You had an I&D of the abscess and cultures are showing strep species and you are being sent home on oral antibiotics to complete treatment as follows: * Augmentin one tablet by mouth TWICE daily for total 10 days, you already received 4 days and have a dose for tonight and then 6 more days * Azithromycin 500mg by mouth daily -- you got 4 doses and need ONE more day to have added coverage given cat bite -- please disregard extra 1 tablet as prescription was sent the day before. You have been made an appointment with [facility] on Monday for continued monitoring/wound change and wound care appointment on September 06 at 8am. You have had packing changed and in the meantime have been provided with Aquacel to fill with a strip of Aquacel ag and cover with Optifoam. Please change this every 2-3 days or as needed sooner for increased drainage. You should follow up with [facility] and wound care for continued monitoring. Please return to the emergency department with any repeat fevers/chills, chest pain, shortness of breath, worsening redness/pain, or any other symptoms concerning for you. You have been sent a short prescription of pain medication to use as needed for breakthrough pain and can use Tylenol for non-severe pain. You have also been sent a prescription for hydroxyzine (you got a dose of this while inpatient) to use as needed for anxiety/sleep. You may take this up to 2-3 times per day for symptom control. You have also been started on amlodipine to help with blood pressure control. Orthopedics (Dr Yun) has seen you while in the hospital and felt MRI ok and wound improving and no need for surgery. If your symptoms worsen, please contact their office for follow up at It has been a pleasure being a part of the medical team providing for you while you have been in the hospital. Take care! Pending Studies at Discharge: Yes Studies:: Blood cultures -- no growth to date Wound culture -- strep species, sensitivities pending Stand-Alone Forms: My [facility], Opioid Pain Management, Work/School Release Medications and DC Order Prescriptions: New amoxicillin-pot clavulanate [Augmentin] 875-125 mg tablet 1 tab PO BID 7 Days Qty: 15 RF: 0 oxycodone 5 mg tablet 5 mg PO Q6H PRN (Reason: pain) Qty: 12 RF: 0 hydroxyzine HCl 10 mg tablet 10 mg PO Q8H PRN (Reason: anxiety) Qty: 30 RF: 0 amlodipine 5 mg tablet 5 mg PO DAILY Qty: 30 RF: 0 Continued bupropion HCl [Wellbutrin SR] 150 mg Tablet Sustained-Release 12 Hr 150 mg PO DAILY RF: 0 ibuprofen [Advil] 200 mg Tablet 200 mg PO Q6H PRN (Reason: Pain) RF: 0 aspirin 81 mg Tablet,Chewable 81 mg PO DAILY PRN (Reason: Pain) RF: 0 duloxetine [Cymbalta] 60 mg Capsule,Delayed Release(Dr/Ec) 60 mg PO BID RF: 0 Discontinued amoxicillin 500 mg Tablet 500 mg PO BID RF: 0 Vraylar 1.5 mg Capsule 1.5 mg PO DAILY RF: 0 Discharge Orders: Discharge Order (Routine); Ordered 08/28/21 Ordered By: Heena Vieira/Other Patient Handouts: What Is Cat Scratch Disease? Admission Data Admit Date/Time: 08/25/21 12:13 Attending Provider: Ted Gonzalez Admit Provider: Carlos Duong Primary Care Provider: PCP,NO Other Providers: Carlos Duong ; Andrea Yun Other Interventions: Discharge Summary Assessment (RN) Last Done: 08/28/21 11:22 Supervising Physician Co-Signing Physician Notes Attending note: patient seen and examined with Heena Washington PA-C. I agree with her discharge summary. I personally reviewed the labs and imaging findings. patient feeling better after incision and drainage, she is tolerating oral antibiotics, no fever, eating well - Abscess from cat scratch, s/p incision and drainage discharge on extended course of Augmentin she has follow up with [facility] for wound packing
[2021-08-28] MEDS ORDERED: AMOXICILLIN/CLAVULANATE 875 MG TAB PO ONE (10:36)
[2021-08-28] MEDS: oxyCODONE HCL IR 5 MG TAB (IMMEDIATE RELEASE) PO PRN (10:45)
--- NOTE | 2021-08-28 10:59 | Orthopedic Progress Note ---
Date of Service August 28, 2021 Assessment & Plan (1) Cat-scratch disease: Plan: Continue antibiotic treatment (2) Abscess of arm, right: Plan: Because of improvement clinically I chose to do a bedside irrigation with diluted hydrogen peroxide and saline with copious irrigation of the wound abscess area. This was repacked with packing under sterile technique. New sterile bandage applied. Plan: Because wound is open and allow for cleaning free drainage and because of significant improvement clinically recommending holding off on a formal incision and drainage operative procedure at this time. Patient will continue on antibiotics has appointments for wound clinic to do packing changes and wound care. If she has reaccumulation of abscess we can see her back at [facility] as an outpatient as needed. Admission and Anticipated Discharge Date Admission Date: August 25, 2021 Subjective Patient's arms feeling better Review of Systems Review of Systems: No fever chills Physical Exam Physical Exam: Dressing change packing removed wound expressed and there was less cloudy drainage now which is bloody drainage no purulence. Induration has improved from last evaluation as well. Distal CSM intact. Results & Data ([facility]) Vital Signs (Past 12 Hours) Vital Signs Temp Pulse Resp BP Pulse Ox 08/28/21 07:00 36.6 C 74 16 157/79 H 96 08/27/21 23:00 36.7 C 69 18 156/76 H 95 Diagnostic Findings MRI reviewed demonstrates small fluid collection localized to the subcutaneous tissues no fascial or muscle involvement
== END 2021-08-28 12:07 | disposition home or self-care (01) | DRG 815 ==
LOC: ED 09:34 → SUATTDRO 12:13 → MERGE 12:13 → 3N 12:13

== ENCOUNTER 2025-05-19 12:45 | Inpatient (IN) ==
--- NOTE | 2025-05-19 13:17 | Emergency Department Note ---
Impression & Plan Cellulitis and abscess of neck, Hypomagnesemia ED Provider Note HISTORY OF PRESENT ILLNESS: Patient is a 70-year-old female presenting with submandibular pain and swelling. Patient reports that over the last 4 days she has had progressively worsening redness and swelling and pain to her submandibular region. She states that 4 days ago she noticed that she had a "swollen pouch" on her left lower submandibular region. States that over the weekend the swelling has gotten worse and is now very red and painful to palpation. She states that it also feels very warm to the touch. She denies any fevers or chills. Denies any difficulty swallowing. She reports that she feels like she cannot open her mouth fully secondary to how swollen it is. She states she has not been able to really eat or drink anything in the last 24 hours secondary to the swelling. Denies any sublingual pain or fullness. She denies any recent trauma to the neck or mouth. Denies any nausea or vomiting. She has a history of metastatic breast cancer. She is currently on daily chemotherapy. ROS: as above PHYSICAL EXAM: Constitutional: Patient appears in no acute distress. HENT: Head: Normocephalic and atraumatic. Eyes: EOMI, PERRL Mouth/Throat: Mucous membranes moist. No elevation or protrusion of the tongue. Sublingual region is soft and nontender. Halitosis noted. Neck: Trachea midline. Neck supple. Swelling and erythema diffusely across the submandibular region of the external neck. Area is tender to palpation without any palpable crepitus. No palpable fluctuance. Full range of motion of the neck. Cardiovascular: RRR, No murmurs, rubs or gallops. Intact distal pulses. Pulmonary/Chest: No respiratory distress. Breath sounds clear and equal bilaterally. No wheezes or rales. Abdominal: Abdomen soft, no tenderness, rebound or guarding. Musculoskeletal: No edema, tenderness or deformity noted. Skin: Warm and dry. No rash, erythema, pallor or cyanosis Psychiatric: Appropriate mood and affect for situation. Neurological: Alert and keenly responsive. CN II-XII grossly intact, moving all extremities equally and fully. MDM: - Vitals signs showed tachycardia - History obtained via patient. History as above. - Chronic conditions affecting care: Metastatic breast cancer; depression - Differential diagnoses include, but are not limited to: Cellulitis; Alberto's angina; deep space neck infection; submandibular mass - Order placed for continuous cardiac monitoring. At this time, monitor showed rate of 60 bpm with normal sinus rhythm, per my interpretation. - External medical records reviewed. [facility] visit note dated 01/07/2025 was reviewed. Patient follows in their clinic for her advanced left breast cancer with metastases involving the sacrum and lumbosacral spine. She is currently on daily oral chemotherapy. PET scan on 12/23/2024 showed uptake in the anterior mandible and oral cavity. - EKG image interpreted by myself showed normal sinus rhythm. Rate 68 bpm. QT 418. No acute ischemic changes. - Laboratory workup interpreted by myself showed normal WBC; anemia (Hgb 9.6); normal PT/INR; hypokalemia (K 3.1); hypomagnesemia (Mg 1.6); normal troponin; normal lactate; normal procalcitonin - Blood cultures obtained - CT soft tissue neck with IV contrast showed extensive lytic appearance of the mandible new since December 23, 2024. Radiology notes this is concerning for osteomyelitis or osteonecrosis. Noted to have nondisplaced pathologic fractures in the mandible. Also noted to have a large multiloculated rim-enhancing submental fluid collection measuring 5.9 x 3 cm with associated cellulitis favoring an abscess. - Patient given 1g IV tylenol and IV zosyn in ER. - Given 1L NS in ER for hydration - Discussed case with [facility] surgeon on-call, Dr. Landry, at 16:15. He initially requested that the [facility] documentation be reviewed about the patient's metastases to the bone. I did obtain records from the [facility] system including the patient's PET scan and recent oncology note. I did share this with Dr. Landry at 17:23. He does report that he can be on consult for the case but is concerned that patient may benefit from palliative care given concern for potential metastases to the mandible and that infection may be due to either pathologic fracture or osteomyelitis. - Did cussed the results with the patient and discussed what her goals of care are. She does report that she does not want any aggressive measures performed and would prefer to be on palliative care. - Discussion was had with protective services case worker about patient's case and need for admission - Hospitalist consulted for admission - Patient admitted to [facility] hospitalist service for further evaluation and management. ASSESSMENT AND PLAN: Diagnosis: Cellulitis and abscess of neck; hypomagnesemia Plan: Admit Past Med/Surg History Problem List (Updated 05/19/25 @ 19:47 by Yeni Romero MD) Hypomagnesemia (Acute) Cellulitis and abscess of neck (Acute) Malignant neoplasm of breast metastatic to bone (Chronic) Depression Cat-scratch disease (Acute) DVT prophylaxis Abscess of arm, right (Acute) Cellulitis of arm, right (Acute) Myalgia (Acute) Chills (Acute) Obesity Encounter for pre-operative examination Medical History Anxiety and depression Attention deficit disorder (ADD) Bipolar disorder Breast cancer Left, recent diagnosis Hypertension Nausea N/V episodes since 03/2022, no definitive etiology, PCP aware/monitoring Skin cancer Possible BCC, future derm further evlauation per pt Surgical History History of cholecystectomy History of colonoscopy History of esophagogastroduodenoscopy (EGD) History of tooth extraction S/P breast biopsy, left US guided core needle biopsy left breast mass and axilla lymph node 08/02/22 Family History Mother Stroke Father Prostate cancer Hypertension Brother Prostate cancer, Onset Age: 67 Sister Thyroid cancer Brother No problems noted. Grandmother (Paternal) Myocardial infarction Grandmother (Maternal) No problems noted. Other No family history of adverse response to anesthesia Social History Smoking Status: Never smoker Second Hand Exposure: Yes ( A CHILD); Hx Alcohol Use: Yes Alcohol type: beer Alcohol Intake Frequency Comment: football season Hx Substance Use: No Preferred Language: Lebanese Communication Ability: Effective Water Filtration Technician Required: No Beliefs That Will Affect Care: None Current Living Situation: Alone current occupational status: employed current occupation: [employer] Feels Safe at Home: Yes Childhood Exposure to Second-Hand Smoke: Yes Assistive Devices: Glasses Allergies Allergies Allergy/AdvReac Type Severity Reaction Status Date / Time No Known Allergies Allergy Verified 05/19/25 16:17 Home Meds Home Medications Medication Instructions Recorded Confirmed lamotrigine 150 mg tablet 150 mg PO BID 08/18/22 05/19/25 (Lamictal) omeprazole 40 mg capsule,delayed 40 mg PO QAM 08/18/22 05/19/25 release prochlorperazine maleate 10 mg 10 mg PO Q6H PRN Nausea 08/18/22 05/19/25 tablet (Compazine) abemaciclib 150 mg tablet 150 mg PO BID 12/22/22 05/19/25 calcium 600 mg (as 1 cap PO BID 12/22/22 05/19/25 carbonate)-vitamin D3 12.5 mcg (500 unit) capsule (Calcium with Vit D3) denosumab 120 mg/1.7 mL (70 mg/mL) 0 mg subcut MONTHLY 12/22/22 05/19/25 subcutaneous solution (Xgeva) letrozole 2.5 mg tablet 2.5 mg PO DAILY 12/22/22 05/19/25 bupropion HCl 100 mg tablet,12 hr 300 mg PO DAILY 03/19/25 05/19/25 sustained-release (Wellbutrin SR) clonazepam 0.25 mg disintegrating 0.25 mg PO BID PRN Anxiety 03/19/25 05/19/25 tablet loperamide 2 mg capsule 2 mg PO Q6H 03/19/25 05/19/25 mecobalamin (vitamin B12) 1,000 1,000 mcg PO DAILY 03/19/25 05/19/25 mcg chewable tablet methadone 5 mg tablet 2.5 mg PO BID 03/19/25 05/19/25 ondansetron 4 mg disintegrating 4 mg PO Q6H PRN Nausea And Vomiting 03/19/25 05/19/25 tablet oxycodone 5 mg tablet 5 mg PO Q6H PRN Pain 03/19/25 05/19/25 trazodone 100 mg tablet 100 mg PO DAILY 03/19/25 05/19/25 cariprazine 1.5 mg capsule 1.5 mg PO QAM 05/19/25 05/19/25 (Vraylar) duloxetine 60 mg capsule,delayed 60 mg PO BID 05/19/25 05/19/25 release lisinopril 10 mg tablet 10 mg PO DAILY 05/19/25 05/19/25 polyethylene glycol 3350 17 17 g PO DAILY PRN Constipation 05/19/25 05/19/25 gram/dose oral powder sennosides 8.6 mg-docusate sodium 2 tab PO DAILY PRN Constipation 05/19/25 05/19/25 50 mg tablet (Senexon-S) Results & Data (ED) Vital Signs Vital Signs - 24 hr 05/19/25 12:50 05/19/25 13:51 05/19/25 13:51 Temperature 36.1 C L Temperature Source Temporal Artery Scan Pulse Rate 95 H 84 Pulse Rate [Apical] Pulse Rate from SpO2 Sensor Pulse Rhythm Respiratory Rate 17 Blood Pressure 102/72 Blood Pressure [Right Arm] Blood Pressure Mean 82 Blood Pressure Mean [Right Arm] Pulse Oximetry 98 94 Oxygen Delivery Method Room Air Room Air Sepsis Recent Fever Within 48 Hours No Sepsis New/Unexplained Change in Mental Status N/A Sepsis Action Taken by Nursing No Action Required 05/19/25 13:51 05/19/25 14:00 05/19/25 14:21 Temperature Temperature Source Pulse Rate 82 82 Pulse Rate [Apical] Pulse Rate from SpO2 Sensor 78 80 Pulse Rhythm Regular Respiratory Rate 16 17 21 Blood Pressure 114/63 Blood Pressure [Right Arm] Blood Pressure Mean 80 Blood Pressure Mean [Right Arm] Pulse Oximetry 94 94 97 Oxygen Delivery Method Room Air Sepsis Recent Fever Within 48 Hours Sepsis New/Unexplained Change in Mental Status Sepsis Action Taken by Nursing 05/19/25 15:42 05/19/25 16:06 05/19/25 16:15 Temperature Temperature Source Pulse Rate Pulse Rate [Apical] 78 Pulse Rate from SpO2 Sensor 88 69 Pulse Rhythm Respiratory Rate 24 16 22 Blood Pressure 119/71 104/67 Blood Pressure [Right Arm] 104/67 Blood Pressure Mean 87 79 Blood Pressure Mean [Right Arm] 79 Pulse Oximetry 99 92 94 Oxygen Delivery Method Room Air Sepsis Recent Fever Within 48 Hours Sepsis New/Unexplained Change in Mental Status Sepsis Action Taken by Nursing 05/19/25 17:27 05/19/25 18:00 05/19/25 18:12 Temperature Temperature Source Pulse Rate 63 66 59 L Pulse Rate [Apical] Pulse Rate from SpO2 Sensor 60 59 L Pulse Rhythm Respiratory Rate 17 16 Blood Pressure 93/59 L 107/58 L Blood Pressure [Right Arm] Blood Pressure Mean 70 74 Blood Pressure Mean [Right Arm] Pulse Oximetry 92 96 Oxygen Delivery Method Room Air Sepsis Recent Fever Within 48 Hours Sepsis New/Unexplained Change in Mental Status Sepsis Action Taken by Nursing 05/19/25 18:19 05/19/25 18:19 05/19/25 18:19 Temperature Temperature Source Pulse Rate Pulse Rate [Apical] Pulse Rate from SpO2 Sensor Pulse Rhythm Respiratory Rate Blood Pressure 107/58 L 107/58 L 107/58 L Blood Pressure [Right Arm] Blood Pressure Mean 76 76 76 Blood Pressure Mean [Right Arm] Pulse Oximetry Oxygen Delivery Method Sepsis Recent Fever Within 48 Hours Sepsis New/Unexplained Change in Mental Status Sepsis Action Taken by Nursing 05/19/25 18:51 05/19/25 19:00 05/19/25 19:00 Temperature Temperature Source Pulse Rate 60 60 Pulse Rate [Apical] Pulse Rate from SpO2 Sensor 60 59 L Pulse Rhythm Respiratory Rate 16 17 Blood Pressure 98/55 L Blood Pressure [Right Arm] Blood Pressure Mean 65 Blood Pressure Mean [Right Arm] Pulse Oximetry 93 93 Oxygen Delivery Method Sepsis Recent Fever Within 48 Hours Sepsis New/Unexplained Change in Mental Status Sepsis Action Taken by Nursing Laboratory Data 05/19/25 14:11 05/19/25 14:11 Lab Results 05/19/25 05/19/25 05/19/25 Range/Units 14:11 15:40 16:13 WBC 6.19 (4.8-10.8) K/ul RBC 2.73 L (4.20-5.40) M/uL Hgb 9.6 L (12.0-16.0) g/dl Hct 26.9 L (37.0-47.0) % MCV 98.5 (80.0-100.0) fL MCH 35.2 H (25.0-34.0) pg MCHC 35.7 (32.0-36.0) g/dL RDW Std Deviation 41.7 (36.4-46.3) fL RDW Coeff of Hermelinda 11.5 (11.5-14.5) % Plt Count 271 (130-400) K/uL MPV 8.4 L (9.4-12.4) fL Immature Gran % (Auto) 0.2 % Neut % (Auto) 77.3 % Lymph % (Auto) 12.9 % Thurston % (Auto) 7.6 % Eos % (Auto) 1.5 % Baso % (Auto) 0.5 % Neut # (Auto) 4.79 (1.40-6.50) K/uL Lymph # (Auto) 0.80 L (1.20-3.40) K/uL Thurston # (Auto) 0.47 (0.11-0.59) K/uL Eos # (Auto) 0.09 (0.00-0.50) K/uL Baso # (Auto) 0.03 (0.00-0.20) K/uL Immature Gran # (Auto) 0.01 (0.01-0.20) K/uL PT Cancelled 10.8 INR Cancelled 1.0 APTT Cancelled 20 L PTT Ratio Cancelled 0.7 Sodium 134 L (136-145) mmol/L Potassium 3.1 L (3.5-5.1) mmol/L Chloride 98 (98-107) mmol/L Carbon Dioxide 29 (21-32) mmol/L Anion Gap 7 (3-11) BUN 16 (6-23) mg/dl Creatinine 0.64 (0.6-1.2) mg/dl Est Cr Clr Drug Dosing Not Reportable eGFR 96.20 BUN/Creatinine Ratio 25.0 H (10-20) Glucose 113 H (70-99(Fasting)) mg/dl Lactate 0.8 (0.4-2.0) mmol/L Calcium 10.1 (8.6-10.3) mg/dl Magnesium 1.6 L (1.7-2.4) mg/dl Total Bilirubin 0.5 (0.2-1.0) mg/dl AST 17 (13-39) U/L ALT 25 (7-52) U/L Alkaline Phosphatase 209 H (34-104) U/L Troponin I High Sens 4.6 (0-14) pg/ml Total Protein 7.4 (6.0-8.3) gm/dl Albumin 3.4 (3.4-5.0) gm/dl Globulin 4.0 (2.5-4.0) gm/dl Albumin/Globulin Ratio 0.9 (0.9-2) Procalcitonin 0.11 (0-0.5) ng/ml Urine Color Yellow Urine Appearance Clear (Clear) Urine pH 6.0 (4.5-7.5) Ur Specific Cotter 1.019 (1.000-1.030) Urine Protein Trace H (Negative) Urine Glucose (UA) Negative (Negative) Urine Ketones Negative (Negative) Urine Blood Negative (Negative) Urine Nitrite Negative (Negative) Urine Bilirubin Negative (Negative) Urine Urobilinogen Negative (Negative) Ur Leukocyte Esterase Negative (Negative) Urine WBC (Auto) 0-5 (0-5) /hpf Urine RBC (Auto) 3-5 H (0-2) /hpf U Hyaline Cast (Auto) 0-2 (0-2) /lpf U Epithel Cells (Auto) 0-2 (0-2) /hpf Urine Bacteria (Auto) None Seen (None Seen) Urine Comment Administered Medications Sodium Chloride (Nss) 1,000 mls @ 999 mls/hr IV .Q1H1M ONE Stop: 05/19/25 20:17 Last Admin: 05/19/25 19:27 Dose: 999 mls/hr Documented By: KRIS Magnesium Sulfate/Dextrose (Magnesium Sulfate / D5w) 1 gm in 100 mls @ 100 mls/hr IV NOW STA Stop: 05/19/25 20:22 Last Admin: 05/19/25 19:28 Dose: 100 mls/hr Documented By: KRIS Discontinued Medications Piperacillin Sod/Tazobactam Sod (Zosyn) 4.5 gm in 100 mls @ 200 mls/hr IV NOW ONE; Protocol Stop: 05/19/25 15:30 Last Infusion: 05/19/25 16:52 Dose: Infused Documented By: Admin: 05/19/25 15:40 Dose: 200 mls/hr Documented By: SHERIN Acetaminophen (Ofirmev) 1,000 mg in 100 mls @ 400 mls/hr IV NOW STA Stop: 05/19/25 15:58 Last Infusion: 05/19/25 16:51 Dose: Infused Documented By: Admin: 05/19/25 15:50 Dose: 400 mls/hr Documented By: SHERIN Ioversol (Optiray 320 100ml) 93 ml IV ONCE ONE Stop: 05/19/25 15:37 Last Admin: 05/19/25 15:36 Dose: 93 ml Documented By: MARLA Imaging Data Radiologist's Impression: Soft Tissue Neck CT 05/19/25 13:13 CT OF THE NECK WITH IV CONTRAST CLINICAL HISTORY: Submandibular pain and swelling. Breast cancer. COMPARISON STUDY: PET/CT December 23, 2024. TECHNIQUE: Following IV administration of 93 mL of Optiray, helical axial images of the neck were obtained. Sagittal and coronal reconstructions were viewed. Automated exposure control was utilized for the study. A dose lowering technique was utilized adhering to the principles of ALARA. CT DOSE: 669.72 mGy.cm FINDINGS: Visualized portions of the intracranial contents are unremarkable. Moderate left mastoid effusion is present. No orbital abnormality is identified. Numerous maxillary teeth are absent. All of the mandibular teeth are absent. This represents a change since PET/CT of December 23, 2024. Of note, there is extensive permeative lytic appearance of the mandible which is also new since that examination. Nondisplaced pathologic mandibular fractures are present. Of note, there is a large multiloculated rim enhancing submental fluid collection which measures 5.9 x 3 cm. There is adjacent stranding and and skin thickening suggestive of cellulitis. This fluid collection is associated with the anterior aspect of the platysma. The parotid and submandibular glands are unremarkable. The epiglottis is normal. No involvement of the floor of the mouth is identified by CT. There is no prevertebral edema. Lung apices are unremarkable. Right subclavian [id number] is in place. Major vasculature of the neck is patent. IMPRESSION: 1. Extensive permeative lytic appearance of the mandible which is new since PET/CT of December 23, 2024. This could represent osteomyelitis or osteonecrosis. Associated nondisplaced pathologic fractures of the mandible. Although less likely, a neoplastic process such as metastatic disease within the mandible cannot be completely excluded. 2. Associated large multiloculated rim enhancing submental fluid collection, measuring 5.9 x 3 cm with associated cellulitis. This favors an abscess. Close clinical follow-up is recommended although no definite involvement of the floor of the mouth. ACT 112: Negative or not required by law. Electronically signed by: Mark Quick M.D. 05/19/2025 3:55 PM Discharge Plan Visit Data Chief Complaint: Neck Injury/Pain Stated Complaint: SWELLING OF THROAT ED Provider: Yeni Romero Discharge Problem: Cellulitis and abscess of neck, Hypomagnesemia Condition: Fair Forms Stand Alone Forms: [facility] Prescriptions Prescriptions: No Action oxycodone 5 mg tablet 5 mg PO Q6H PRN (Reason: Pain) methadone 5 mg tablet 2.5 mg PO BID clonazepam 0.25 mg tablet,disintegrating 0.25 mg PO BID PRN (Reason: Anxiety) loperamide 2 mg capsule 2 mg PO Q6H ondansetron 4 mg tablet,disintegrating 4 mg PO Q6H PRN (Reason: Nausea And Vomiting) trazodone 100 mg tablet 100 mg PO DAILY mecobalamin (vitamin B12) 1,000 mcg tablet,chewable 1,000 mcg PO DAILY letrozole 2.5 mg tablet 2.5 mg PO DAILY abemaciclib 150 mg tablet 150 mg PO BID Xgeva 120 mg/1.7 mL (70 mg/mL) solution 0 mg subcut MONTHLY Rx Instructions: states not taking calcium carbonate-vitamin D3 [Calcium 600 with Vitamin D3] 600 mg-12.5 mcg (500 unit) capsule 1 cap PO BID bupropion HCl [Wellbutrin SR] 100 mg tablet sustained-release 12 hr 300 mg PO DAILY lamotrigine [Lamictal] 150 mg Tablet 150 mg PO BID prochlorperazine maleate [Compazine] 10 mg Tablet 10 mg PO Q6H PRN (Reason: Nausea) omeprazole 40 mg Capsule,Delayed Release(Dr/Ec) 40 mg PO QAM sennosides-docusate sodium [Senexon-S] 8.6-50 mg tablet 2 tab PO DAILY PRN (Reason: Constipation) polyethylene glycol 3350 17 gram/dose powder 17 g PO DAILY PRN (Reason: Constipation) Vraylar 1.5 mg capsule 1.5 mg PO QAM duloxetine 60 mg capsule,delayed release(DR/EC) 60 mg PO BID lisinopril 10 mg tablet 10 mg PO DAILY Referrals Referrals: Carol Hernández DO [Primary Care Provider] -
[2025-05-19 14:49] LABS: Hematocrit (blood only) 26.9 % (37.0-47.0); Hemoglobin 9.6 g/dl (12.0-16.0); Immature Granulocytes # (auto) 0.01 K/uL (0.01-0.20); Immature Granulocytes % (auto) 0.2 %; Mean Corpuscular Hemoglobin 35.2 pg (25.0-34.0); Mean Corpuscular Volume 98.5 fL (80.0-100.0); Platelet Count 271 K/uL (130-400); RDW Standard Deviation 41.7 fL (36.4-46.3); Red Blood Count 2.73 M/uL (4.20-5.40); White Blood Count 6.19 K/ul (4.8-10.8)
[2025-05-19] MEDS ORDERED: AMPICILLIN/SULBACTAM SOD 3,000 MG/100 ML BAG IV STA (15:01)
[2025-05-19 15:07] LABS: Alanine Aminotransferase 25 U/L (7-52); Albumin Globulin Ratio 0.9 (0.9-2); Albumin Level 3.4 gm/dl (3.4-5.0); Alkaline Phosphatase 209 U/L (34-104); Anion Gap 7 (3-11); Bilirubin,Total 0.5 mg/dl (0.2-1.0); Blood Urea Nitrogen 16 mg/dl (6-23); Calcium 10.1 mg/dl (8.6-10.3); Carbon Dioxide 29 mmol/L (21-32); Chloride 98 mmol/L (98-107); Globulin 4.0 gm/dl (2.5-4.0); Glucose 113 mg/dl (70-99(Fasting)); Magnesium 1.6 mg/dl (1.7-2.4); Potassium 3.1 mmol/L (3.5-5.1); Sodium 134 mmol/L (136-145); Total Protein 7.4 gm/dl (6.0-8.3)
[2025-05-19] MEDS: OPTIRAY 320 100ml IV ONE (15:36)
[2025-05-19] MEDS: PIPERACILLIN/TAZOBACTAM 4.5 GM/100 ML BAG IV ONE (15:40)
[2025-05-19] MEDS: ACETAMINOPHEN 1,000 MG/100 ML VIAL IV STA (15:50)
--- NOTE | 2025-05-19 15:56 | CT Scan Report ---
CT OF THE NECK WITH IV CONTRAST CLINICAL HISTORY: Submandibular pain and swelling. Breast cancer. COMPARISON STUDY: PET/CT December 23, 2024. TECHNIQUE: Following IV administration of 93 mL of Optiray, helical axial images of the neck were ob tained. Sagittal and coronal reconstructions were viewed. Automated exposure control was utilized f or the study. A dose lowering technique was utilized adhering to the principles of ALARA. CT DOSE: 669.72 mGy.cm FINDINGS: Visualized portions of the intracranial contents are unremarkable. Moderate left mastoid e ffusion is present. No orbital abnormality is identified. Numerous maxillary teeth are absent. All of the mandibular teeth are absent. This represents a change since PET/CT of December 23, 2024. Of note, the re is extensive permeative lytic appearance of the mandible which is also new since that examination. Nondisplaced pathologic mandibular fractures are present. Of note, there is a large multiloculated r im enhancing submental fluid collection which measures 5.9 x 3 cm. There is adjacent stranding and an d skin thickening suggestive of cellulitis. This fluid collection is associated with the anterior asp ect of the platysma. The parotid and submandibular glands are unremarkable. The epiglottis is normal. No involvement of the floor of the mouth is identified by CT. There is no prevertebral edema. Lung a pices are unremarkable. Right subclavian [id number] is in place. Major vasculature of the neck is patent. IMPRESSION: 1. Extensive permeative lytic appearance of the mandible which is new since PET/CT of December 23, 2024. T his could represent osteomyelitis or osteonecrosis. Associated nondisplaced pathologic fractures of t he mandible. Although less likely, a neoplastic process such as metastatic disease within the mandibl e cannot be completely excluded. 2. Associated large multiloculated rim enhancing submental fluid collection, measuring 5.9 x 3 cm wit h associated cellulitis. This favors an abscess. Close clinical follow-up is recommended although no definite involvement of the floor of the mouth. ACT 112: Negative or not required by law. Electronically signed by: Mark Quick M.D. 05/19/2025 3:55 PM
[2025-05-19 16:00] LABS: Appearance Urine Clear (Clear); Bacteria Urine Automated None Seen (None Seen); Cast Urine Automated 0-2 /lpf (0-2); Epithelial Cell Urine Auto 0-2 /hpf (0-2); Glucose Urine UA Negative (Negative); WBC Urine Automated 0-5 /hpf (0-5)
[2025-05-19 17:05] LABS: INR 1.0 (0.9-1.1); Partial Thromboplastin Time 20 Seconds (21-31); Prothrombin Time 10.8 Seconds (9.0-12.0)
--- NOTE | 2025-05-19 19:04 | History & Physical Report ---
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 No leukocytosis, lactate WNL CT neck: Extensive permeative lytic appearance of the mandible which is new since PET/CT of December 23, 2024. This could represent osteomyelitis or osteonecrosis. Associated nondisplaced pathologic fractures of the mandible. Although less likely, a neoplastic process such as metastatic disease within the mandible cannot be completely excluded. Associated large multiloculated rim enhancing submental fluid collection, measuring 5.9 x 3 cm with associated cellulitis. This favors an abscess. Close clinical follow-up is recommended although no definite involvement of the floor of the mouth. CXR: Mild congestive changes of the cardiovascular system. Patchy left retrocardiac densities may represent atelectasis versus mild pneumonia. In ER given Zosyn SBPs high 90's. Give IVF and now SBP in low 100s Continue Zosyn, add daptomycin Will make NPO midnight Consult oral maxillofacial. ER provider spoke to Dr. 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 See addendum I spent a total of 65 minutes reviewing notes, outpatient records, labs, medication, coordinating, documenting and providing care for this patient excluding time spent in the performance of separately billed services and excluding time spent by another provider/QHP. 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 Patient states 3 days ago noticed erythema and edema under jaw that has progressively worsened and spreading down anterior neck. Reports today having increased pain and hurt to open jaw and unable to fully open jaw. She states eats soft foods at baseline and able to tolerate soft foods. She reports breathing through her mouth and throat feels dry. Denies pain to throat with swallowing or choking. Denies fever or chills. States was constipated and uses softeners and laxatives. Reports last month ran out of methadone and had N/V/D. She has since restarted and N/V/D has since improved. Reports having nighttime diarrhea x 1 episode a night past several nights. She has held her stool softeners and laxatives. States having intermittent frontal GREGORY past couple of days. Denies fever/chills, diaphoresis, denies any further vomiting, dizziness, syncope, vision changes, neck stiffness, CP, SOB, palpitations, cough, otalgia, rhinorrhea, abdominal pain, extremity weakness, extremity edema, rashes, urinary symptoms. Allergies Allergy/AdvReac Type Severity Reaction Status Date / Time No Known Allergies Allergy Verified 05/19/25 16:17 Home Medications Medication Instructions Recorded Confirmed Type lamotrigine 150 mg tablet 150 mg PO BID 08/18/22 05/19/25 History (Lamictal) omeprazole 40 mg capsule,delayed 40 mg PO QAM 08/18/22 05/19/25 History release prochlorperazine maleate 10 mg 10 mg PO Q6H PRN Nausea 08/18/22 05/19/25 History tablet (Compazine) abemaciclib 150 mg tablet 150 mg PO BID 12/22/22 05/19/25 History calcium 600 mg (as 1 cap PO BID 12/22/22 05/19/25 History carbonate)-vitamin D3 12.5 mcg (500 unit) capsule (Calcium with Vit D3) denosumab 120 mg/1.7 mL (70 mg/mL) 0 mg subcut MONTHLY 12/22/22 05/19/25 History subcutaneous solution (Xgeva) letrozole 2.5 mg tablet 2.5 mg PO DAILY 12/22/22 05/19/25 History bupropion HCl 100 mg tablet,12 hr 300 mg PO DAILY 03/19/25 05/19/25 History sustained-release (Wellbutrin SR) clonazepam 0.25 mg disintegrating 0.25 mg PO BID PRN Anxiety 03/19/25 05/19/25 History tablet loperamide 2 mg capsule 2 mg PO Q6H 03/19/25 05/19/25 History mecobalamin (vitamin B12) 1,000 1,000 mcg PO DAILY 03/19/25 05/19/25 History mcg chewable tablet methadone 5 mg tablet 2.5 mg PO BID 03/19/25 05/19/25 History ondansetron 4 mg disintegrating 4 mg PO Q6H PRN Nausea And Vomiting 03/19/25 05/19/25 History tablet oxycodone 5 mg tablet 5 mg PO Q6H PRN Pain 03/19/25 05/19/25 History trazodone 100 mg tablet 100 mg PO DAILY 03/19/25 05/19/25 History cariprazine 1.5 mg capsule 1.5 mg PO QAM 05/19/25 05/19/25 History (Vraylar) duloxetine 60 mg capsule,delayed 60 mg PO BID 05/19/25 05/19/25 History release lisinopril 10 mg tablet 10 mg PO DAILY 05/19/25 05/19/25 History polyethylene glycol 3350 17 17 g PO DAILY PRN Constipation 05/19/25 05/19/25 History gram/dose oral powder sennosides 8.6 mg-docusate sodium 2 tab PO DAILY PRN Constipation 05/19/25 05/19/25 History 50 mg tablet (Senexon-S) Past Med/Surg History Problem List Hypomagnesemia (Acute) Cellulitis and abscess of neck (Acute) Malignant neoplasm of breast metastatic to bone (Chronic) Depression Cat-scratch disease (Acute) DVT prophylaxis Abscess of arm, right (Acute) Cellulitis of arm, right (Acute) Myalgia (Acute) Chills (Acute) Obesity Encounter for pre-operative examination Medical History Nausea N/V episodes since 03/2022, no definitive etiology, PCP aware/monitoring Skin cancer Possible BCC, future derm further evlauation per pt Breast cancer Left, recent diagnosis Attention deficit disorder (ADD) Bipolar disorder Anxiety and depression Hypertension Surgical History S/P breast biopsy, left US guided core needle biopsy left breast mass and axilla lymph node 08/02/22 History of esophagogastroduodenoscopy (EGD) History of colonoscopy History of cholecystectomy History of tooth extraction Family History Mother Stroke Father Prostate cancer Hypertension Brother Prostate cancer, Onset Age: 67 Sister Thyroid cancer Brother No problems noted. Grandmother (Paternal) Myocardial infarction Grandmother (Maternal) No problems noted. Other No family history of adverse response to anesthesia Social History Smoking Status: Never smoker Second Hand Exposure: Yes ( A CHILD); Hx Alcohol Use: Yes Alcohol type: beer Alcohol Intake Frequency Comment: football season Hx Substance Use: No Preferred Language: Belgian Communication Ability: Effective Print Shop Helper Required: No Beliefs That Will Affect Care: None Current Living Situation: Alone current occupational status: employed current occupation: [employer] Feels Safe at Home: Yes Childhood Exposure to Second-Hand Smoke: Yes Assistive Devices: Glasses Review of Systems Review of Systems: All systems reviewed & are unremarkable except as noted in HPI & below Physical Exam Physical Exam: General: no apparent distress, chronic ill appearing overweight female Head: normocephalic, atraumatic Eyes: conjunctiva non-injected, anicteric ENT: normal inspection external ears, nose, mucous membranes dry. under chin/mandible with large edema, erythema and warmth and significant firmness that extends down anterior neck, +tenderness to palpation, no open areas or discharge noted Neck: as above, trachea midline Lungs: clear, no respiratory distress, no wheezing/rhonchi/rales CV: RRR, no murmur, no pretibial edema Abd: normal BS, soft, non-tender Ext: no cyanosis, no calf tenderness Neuro: A&O x 3, no focal deficits noted, normal affect Skin: as above in neck, otherwise skin warm, dry Results & Data Results & Data Vital Signs (Past 12 Hours) Vital Signs Temp Pulse Pulse Resp BP BP Pulse Ox 05/19/25 18:12 59 L 16 107/58 L 96 05/19/25 18:00 66 05/19/25 17:27 63 17 93/59 L 92 05/19/25 16:15 22 104/67 94 05/19/25 16:06 78 16 104/67 92 05/19/25 15:42 24 119/71 99 05/19/25 14:21 21 97 05/19/25 14:00 82 17 114/63 94 05/19/25 13:51 82 16 94 05/19/25 13:51 94 05/19/25 13:51 84 05/19/25 12:50 36.1 C L 95 H 17 102/72 98 O2 Del Method 05/19/25 18:12 Room Air 05/19/25 18:00 05/19/25 17:27 05/19/25 16:15 05/19/25 16:06 Room Air 05/19/25 15:42 05/19/25 14:21 05/19/25 14:00 05/19/25 13:51 Room Air 05/19/25 13:51 Room Air 05/19/25 13:51 05/19/25 12:50 Room Air Laboratory Results Short CBC 05/19/25 Range/Units 14:11 WBC 6.19 (4.8-10.8) K/ul Hgb 9.6 L (12.0-16.0) g/dl Hct 26.9 L (37.0-47.0) % Plt Count 271 (130-400) K/uL BMP 05/19/25 14:11 Sodium 134 L Potassium 3.1 L Chloride 98 Carbon Dioxide 29 BUN 16 Creatinine 0.64 Glucose 113 H Calcium 10.1 Liver Function 05/19/25 Range/Units 14:11 Total Bilirubin 0.5 (0.2-1.0) mg/dl AST 17 (13-39) U/L ALT 25 (7-52) U/L Alkaline Phosphatase 209 H (34-104) U/L Albumin 3.4 (3.4-5.0) gm/dl Urine 05/19/25 Range/Units 15:40 Urine Color Yellow Urine Appearance Clear (Clear) Urine pH 6.0 (4.5-7.5) Ur Specific [place] 1.019 (1.000-1.030) Urine Protein Trace H (Negative) Urine Glucose (UA) Negative (Negative) Diagnostic Findings Soft Tissue Neck CT 05/19/25 13:13 CT OF THE NECK WITH IV CONTRAST CLINICAL HISTORY: Submandibular pain and swelling. Breast cancer. COMPARISON STUDY: PET/CT December 23, 2024. TECHNIQUE: Following IV administration of 93 mL of Optiray, helical axial images of the neck were obtained. Sagittal and coronal reconstructions were viewed. Automated exposure control was utilized for the study. A dose lowering technique was utilized adhering to the principles of ALARA. CT DOSE: 669.72 mGy.cm FINDINGS: Visualized portions of the intracranial contents are unremarkable. Moderate left mastoid effusion is present. No orbital abnormality is identified. Numerous maxillary teeth are absent. All of the mandibular teeth are absent. This represents a change since PET/CT of December 23, 2024. Of note, there is extensive permeative lytic appearance of the mandible which is also new since that examination. Nondisplaced pathologic mandibular fractures are present. Of note, there is a large multiloculated rim enhancing submental fluid collection which measures 5.9 x 3 cm. There is adjacent stranding and and skin thickening suggestive of cellulitis. This fluid collection is associated with the anterior aspect of the platysma. The parotid and submandibular glands are unremarkable. The epiglottis is normal. No involvement of the floor of the mouth is identified by CT. There is no prevertebral edema. Lung apices are unremarkable. Right subclavian Xiargl-p-Wleg is in place. Major vasculature of the neck is patent. IMPRESSION: 1. Extensive permeative lytic appearance of the mandible which is new since PET/CT of December 23, 2024. This could represent osteomyelitis or osteonecrosis. Associated nondisplaced pathologic fractures of the mandible. Although less likely, a neoplastic process such as metastatic disease within the mandible cannot be completely excluded. 2. Associated large multiloculated rim enhancing submental fluid collection, measuring 5.9 x 3 cm with associated cellulitis. This favors an abscess. Close clinical follow-up is recommended although no definite involvement of the floor of the mouth. ACT 112: Negative or not required by law. Electronically signed by: Mark Quick M.D. 05/19/2025 3:55 PM Chest X-Ray 05/19/25 19:18 EXAM: Portable AP chest radiograph TECHNIQUE: AP portable radiograph of the chest was obtained. INDICATION: Shortness of breath Comparison: Chest radiograph August 23, 2022 FINDINGS: LINES and TUBES: Right-sided Port-A-Cath with tip projecting over the mid SVC. CARDIOVASCULAR: Cardiac silhouette is stably enlarged in size. LUNGS/PLEURA: Mild pulmonary vascular congestion and chronic interstitial lung changes are similar. Hazy bibasilar densities may represent small layering pleural fluids. Patchy left retrocardiac densities may represent atelectasis versus mild pneumonia. No discernible pneumothorax. Nodular density projecting over the left lower hemithorax may represent a nipple shadow however it is poorly characterized. Pulmonary nodule is not excluded. OSSEOUS/OTHER: No displaced acute osseous process identified. Tiny radiodensities over the left axilla may represent a calcified lymph node IMPRESSION: Mild congestive changes of the cardiovascular system. Patchy left retrocardiac densities may represent atelectasis versus mild pneumonia. Nodular density projecting over the left lower hemithorax may represent a nipple shadow however it is poorly characterized. Pulmonary nodule is not excluded. Electronically signed by David Licona 05-19-2025 7:49 PM ECG Additional Comments: sinus rhythm, rate 68, t wave inversion septal leads, t wave flattening anterior, lateral, inferior leads
[2025-05-19] MEDS: SODIUM CHLORIDE 0.9% 1,000 ML IV ONE (19:27)
[2025-05-19] MEDS: MAGNESIUM SULFATE / D5W 1 GM/100 ML BAG IV STA (19:28)
--- NOTE | 2025-05-19 19:49 | XRay Report ---
EXAM: Portable AP chest radiograph TECHNIQUE: AP portable radiograph of the chest was obtained. INDICATION: Shortness of breath Comparison: Chest radiograph August 23, 2022 FINDINGS: LINES and TUBES: Right-sided Port-A-Cath with tip projecting over the mid SVC. CARDIOVASCULAR: Cardiac silhouette is stably enlarged in size. LUNGS/PLEURA: Mild pulmonary vascular congestion and chronic interstitial lung changes are similar. Hazy bibasilar densities may represent small layering pleural fluids. Patchy left retrocardiac densities may represent atelectasis versus mild pneumonia. No discernible pneumothorax. Nodular density projecting over the left lower hemithorax may represent a nipple shadow however it is poorly characterized. Pulmonary nodule is not excluded. OSSEOUS/OTHER: No displaced acute osseous process identified. Tiny radiodensities over the left axilla may represent a calcified lymph node IMPRESSION: Mild congestive changes of the cardiovascular system. Patchy left retrocardiac densities may represent atelectasis versus mild pneumonia. Nodular density projecting over the left lower hemithorax may represent a nipple shadow however it is poorly characterized. Pulmonary nodule is not excluded. Electronically signed by David Licona 05-19-2025 7:49 PM
--- NOTE | 2025-05-19 19:59 | Communication Note ---
Date of Service: May 19, 2025 Attending Addendum: Case reviewed with the advanced practitioner. I have personally performed a history and physical examination on the patient. I have reviewed the advanced practitioner's documentation on the date of service referenced in note, and I agree with, and take responsibility for the plan of care. please refer to her notes for full details patient seen and examined, records reviewed by myself as well on exam, patient seen resting in bed, not in distress reports moderate pain over the submandibular mass no dysphagia, dyspnea no other symptoms VS noted and reviewed oriented x3, not in distress, speaks in sentences with no effort nor accessory muscle use large fluctuant, erythematous mass mid-submandibular region normal rate, regular rhythm, no murmurs clear breath sounds bilaterally non distended, soft, nontender no bipedal edema, erythema, warmth no neuro deficits all labs, imaging noted and reviewed ASSESSMENT AND PLAN> SUBMANDIBULAR ABSCESS, CELLULITIS with possible metastases vs osteonecrosis/osteomyelitis of the mandible Breast CA on oral chemotherapy Dapto + Zosyn ff up blood culture MaxilloFacial Surgeon Dr Landry consulted NPO post midnight other diagnoses and plan of care as per advanced practitioner's notes I spent a total of 40 minutes coordinating, documenting, and providing care for this patient, excluding time spent in the performance of separately billed services or time spent by another provider/QHP. Timur Zuniga MD
[2025-05-19] MEDS ORDERED: MAGNESIUM HYDROXIDE SUSP 30 ML UDC PO PRN (20:19)
[2025-05-19] MEDS: NSS + 20MEQ KCL 20 MEQ/1,000 ML BAG IV SCH (20:58)
[2025-05-19] MEDS: DAPTOmycin 400 MG in SYRINGE 0 ML IV SCH (20:58)
[2025-05-19] MEDS ORDERED: Nursing to Pharmacy Communication SCH (21:00)
[2025-05-19] MEDS: ACETAMINOPHEN 500 MG TAB PO SCH (21:01)
[2025-05-19] MEDS: CALCIUM 600MG + VIT D 400 IU TAB PO SCH (21:01)
[2025-05-19] MEDS: lamoTRIgine 100 MG TAB PO SCH (21:05)
[2025-05-19] MEDS: METHADONE HCL 5 MG TAB PO STA (21:06)
[2025-05-19] MEDS: PIPERACILLIN/TAZOBACTAM 4.5 GM/100 ML BAG IV SCH (21:17)
[2025-05-19] MEDS: POTASSIUM CHLORIDE 20 MEQ/15 ML UDC PO STA (21:19)
[2025-05-19] MEDS: POTASSIUM CHLORIDE 20 MEQ/15 ML UDC PO ONE (22:29)
[2025-05-20] MEDS: ALBUMIN 25% 25 GM/100 ML VIAL IV ONE (02:48)
[2025-05-20 03:55] LABS: Hematocrit (blood only) 25.6 % (37.0-47.0); Hemoglobin 8.7 g/dl (12.0-16.0); Immature Granulocytes # (auto) 0.02 K/uL (0.01-0.20); Immature Granulocytes % (auto) 0.4 %; Mean Corpuscular Hemoglobin 34.1 pg (25.0-34.0); Mean Corpuscular Volume 100.4 fL (80.0-100.0); Platelet Count 243 K/uL (130-400); RDW Standard Deviation 42.5 fL (36.4-46.3); Red Blood Count 2.55 M/uL (4.20-5.40); White Blood Count 4.75 K/ul (4.8-10.8)
[2025-05-20 04:10] LABS: Anion Gap 6.0 (3-11); Blood Urea Nitrogen 18.0 mg/dl (6-23); Calcium 9.6 mg/dl (8.6-10.3); Carbon Dioxide 26.0 mmol/L (21-32); Chloride 104.0 mmol/L (98-107); Creatinine Clr Calc Pharmacy 76.3 ml/min; Glucose 89.0 mg/dl (70-99(Fasting)); Potassium 3.7 mmol/L (3.5-5.1); Sodium 136.0 mmol/L (136-145)
[2025-05-20] MEDS: METHADONE HCL 5 MG TAB PO SCH (08:20)
[2025-05-20] MEDS: CYANOCOBALAMIN (B-12) 500 MCG TABLET PO SCH (08:22)
[2025-05-20] MEDS: LETROZOLE 2.5 MG TAB PO SCH (08:23)
[2025-05-20] MEDS: CARIPRAZINE HCL 1.5 MG CAP PO SCH (08:25)
--- NOTE | 2025-05-20 09:51 | Electrocardiogram Report ---
Test Reason : Blood Pressure : */* mmHG Vent. Rate : 68 BPM Atrial Rate : 68 BPM P-R Int : 184 ms QRS Dur : 84 ms QT Int : 418 ms P-R-T Axes : 59 -17 30 degrees QTcB Int : 444 ms Normal sinus rhythm with sinus arrhythmia Possible Left atrial enlargement Nonspecific T wave abnormality Abnormal ECG No previous ECGs available Confirmed by Nima Orozco ([id number]) on 05/20/2025 9:51:24 AM Referred By: REFERRED SELF Confirmed By: Nima Orozco
--- NOTE | 2025-05-20 12:20 | Hospitalist Progress Note ---
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 SUBMANDIBULAR ABSCESS, CELLULITIS Possible metastases vs osteonecrosis/osteomyelitis of the mandible No leukocytosis, lactate WNL CT neck: Extensive permeative lytic appearance of the mandible which is new since PET/CT of December 23, 2024. This could represent osteomyelitis or osteonecrosis. Associated nondisplaced pathologic fractures of the mandible. Although less likely, a neoplastic process such as metastatic disease within the mandible cannot be completely excluded. Associated large multiloculated rim enhancing submental fluid collection, measuring 5.9 x 3 cm with associated cellulitis. This favors an abscess. Close clinical follow-up is recommended although no definite involvement of the floor of the mouth. CXR: Mild congestive changes of the cardiovascular system. Patchy left retrocardiac densities may represent atelectasis versus mild pneumonia. Vitals stable. Continue Zosyn and daptomycin, get CPK level. Consult oral maxillofacial. await recs. CBC, BMP follow up with oncology upon discharge. (2) Hypomagnesemia: Plan: Magnesium: 1.6 at admission. Replace and monitor #Hypokalemia: admitting K: 3.1. Replace and monitor . now better. 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 Patient was lying in bed, on room air, NAD, resting comfortably. Patient reports breathing okay, denies shortness of breath. Patient does have submandibular pain slightly under control. Patient denies other review of symptoms. Physical Exam Physical Exam: General: no apparent distress, chronic ill appearing overweight female Head: normocephalic, atraumatic Eyes: conjunctiva non-injected, anicteric ENT: normal inspection external ears, nose, mucous membranes dry. under chin/mandible with large edema, erythema and warmth and significant firmness that extends down anterior neck, +tenderness to palpation, no open areas or discharge noted Neck: as above, trachea midline Lungs: clear, no respiratory distress, no wheezing/rhonchi/rales CV: RRR, no murmur, no pretibial edema Abd: normal BS, soft, non-tender Ext: no cyanosis, no calf tenderness Neuro: A&O x 3, no focal deficits noted, normal affect Skin: as above in neck, otherwise skin warm, dry Results & Data Results & Data Vital Signs (Past 12 Hours) Vital Signs Temp Pulse Pulse Resp BP Pulse Ox O2 Del Method 05/20/25 11:11 36.7 C 70 16 106/60 96 Room Air 05/20/25 07:50 36.4 C L 72 16 99/58 L 95 Room Air 05/20/25 07:00 62 05/20/25 05:32 63 120/72 05/20/25 02:30 59 L 82/52 L 05/20/25 02:23 36.4 C L 59 L 18 92 Room Air
[2025-05-20 13:11] LABS: Creatine Kinase 37.0 U/L (26-192)
--- NOTE | 2025-05-20 15:00 | Oral/Maxillofacial Consult ---
Date of Consultation May 20, 2025 Assessment & Plan (1) Cellulitis and abscess of neck: (2) Malignant neoplasm of breast metastatic to bone: (3) Bisphosphonate-related jaw necrosis: (4) Alberto angina: History of Present Illness Attending Physician: Marcin Le MD History of Present Illness I was asked to see Mrs. Friend for an facial infection and issues involving her lower jaw.She was evaluated today in her room. She has a submental infection which seems to be getting more fluctuant and ready for drainage within the next [address] scan is very ominous given the appearance of the bone of the whole lower jaw. She is being treated with many drugs including bisphosphonate type of medication to help with her metastatic bone disease. Despite the fact that this was discontinued a while ago to enable [facility] dental clinic to extract the teeth the effect of the bisphosphonate and her poor health has caused in my opinion a very serious case of medicine related necrosis of the jaw bone MRONJ. Clinically she has areas of exposed bone throughout the whole lower jaw. The bone is very white classic of a significant MRONJ presentation. There also may be the possibility of a pathologic fracture. However she is so tender that I am not able to ascertain if this is indeed the case. In order to treat the infection drainage is necessary with removal of any exposed loose bone( necrotic bone must be carefully removed). Treatment of patients with this severity of disease is very conservative. I think at this present time my main goal would be to eradicate the infection because really there is no cure for the bone necrosis and I do not think that she is a candidate for a major jaw reconstruction with bone grafting. Ideally I would like to take her to the operating room conservatively remove the necrotic bone and drain the infection. Hopefully this will lessen the bacterial insult and allow for some improvement in the infection and her pain. She will need to be kept on IV antibiotics and we may need to consider putting in a PICC line. Once we start getting some control she will need to be followed by me to remove any loose sequela of bone and start her on Peridex mouth rinsing. I would appreciate very much if you could please give me your opinion of her ability to tolerate a general anesthetic and cleared her medically to allow the superficial debridement and the incision and drainage. I am in the process of getting x-rays from [facility]. I will check my schedule based upon her ability to be cleared medically to have this procedure done in the operating room under general anesthetic. Thank you very much for the opportunity to work with you with this most interesting but devastating case. Allergies Allergy/AdvReac Type Severity Reaction Status Date / Time No Known Allergies Allergy Verified 05/19/25 16:17 Home Medications Medication Instructions Recorded Confirmed Type lamotrigine 150 mg tablet 150 mg PO BID 08/18/22 05/19/25 History (Lamictal) omeprazole 40 mg capsule,delayed 40 mg PO QAM 08/18/22 05/19/25 History release prochlorperazine maleate 10 mg 10 mg PO Q6H PRN Nausea 08/18/22 05/19/25 History tablet (Compazine) abemaciclib 150 mg tablet 150 mg PO BID 12/22/22 05/19/25 History calcium 600 mg (as 1 cap PO BID 12/22/22 05/19/25 History carbonate)-vitamin D3 12.5 mcg (500 unit) capsule (Calcium with Vit D3) denosumab 120 mg/1.7 mL (70 mg/mL) 0 mg subcut MONTHLY 12/22/22 05/19/25 History subcutaneous solution (Xgeva) letrozole 2.5 mg tablet 2.5 mg PO DAILY 12/22/22 05/19/25 History bupropion HCl 100 mg tablet,12 hr 300 mg PO DAILY 03/19/25 05/19/25 History sustained-release (Wellbutrin SR) clonazepam 0.25 mg disintegrating 0.25 mg PO BID PRN Anxiety 03/19/25 05/19/25 History tablet loperamide 2 mg capsule 2 mg PO Q6H 03/19/25 05/19/25 History mecobalamin (vitamin B12) 1,000 1,000 mcg PO DAILY 03/19/25 05/19/25 History mcg chewable tablet methadone 5 mg tablet 2.5 mg PO BID 03/19/25 05/19/25 History ondansetron 4 mg disintegrating 4 mg PO Q6H PRN Nausea And Vomiting 03/19/25 05/19/25 History tablet oxycodone 5 mg tablet 5 mg PO Q6H PRN Pain 03/19/25 05/19/25 History trazodone 100 mg tablet 100 mg PO DAILY 03/19/25 05/19/25 History cariprazine 1.5 mg capsule 1.5 mg PO QAM 05/19/25 05/19/25 History (Vraylar) duloxetine 60 mg capsule,delayed 60 mg PO BID 05/19/25 05/19/25 History release lisinopril 10 mg tablet 10 mg PO DAILY 05/19/25 05/19/25 History polyethylene glycol 3350 17 17 g PO DAILY PRN Constipation 05/19/25 05/19/25 History gram/dose oral powder sennosides 8.6 mg-docusate sodium 2 tab PO DAILY PRN Constipation 05/19/25 05/19/25 History 50 mg tablet (Senexon-S) Patient History Medical History Nausea N/V episodes since 03/2022, no definitive etiology, PCP aware/monitoring Skin cancer Possible BCC, future derm further evlauation per pt Breast cancer Left, recent diagnosis Attention deficit disorder (ADD) Bipolar disorder Anxiety and depression Hypertension Surgical History S/P breast biopsy, left US guided core needle biopsy left breast mass and axilla lymph node 08/02/22 History of esophagogastroduodenoscopy (EGD) History of colonoscopy History of cholecystectomy History of tooth extraction Family History Mother Stroke Father Prostate cancer Hypertension Brother Prostate cancer, Onset Age: 67 Sister Thyroid cancer Brother No problems noted. Grandmother (Paternal) Myocardial infarction Grandmother (Maternal) No problems noted. Other No family history of adverse response to anesthesia Social History Smoking Status: Never smoker Second Hand Exposure: Yes ( A CHILD); Hx Alcohol Use: No Hx Substance Use: No Preferred Language: Syrian Communication Ability: Effective Production Roustabout Required: No Beliefs That Will Affect Care: None Current Living Situation: Alone current occupational status: employed current occupation: [employer] Feels Safe at Home: Yes Childhood Exposure to Second-Hand Smoke: Yes Assistive Devices: None Results & Data Vital Signs (Past 12 Hours) Vital Signs Temp Pulse Pulse Resp BP Pulse Ox O2 Del Method 05/20/25 11:11 36.7 C 70 16 106/60 96 Room Air 05/20/25 07:50 36.4 C L 72 16 99/58 L 95 Room Air 05/20/25 07:00 62 05/20/25 05:32 63 120/72 PG Care Time/CCT Total # of Minutes Spent Total Time Spent with Patient: Total time spent is greater than 50% in coordination of care (as documented) at patient's floor/unit and/or counseling patient: Coding Level of Care Code 01745 INT INP/OBS CARE 3/75MIN Diagnoses Cellulitis and abscess of neck L03.221; L02.11 Malignant neoplasm of breast metastatic to bone C50.919; C79.51 Bisphosphonate-related jaw necrosis M87.180; T45.8X5A Alberto angina K12.2
[2025-05-20] MEDS: HEPARIN 100 UNIT/ML 5ML FLUSH FLUSH PRN (18:00)
[2025-05-20] MEDS: ABEMACICLIB 150 MG PO SCH (19:59)
[2025-05-21 06:27] LABS: Hematocrit (blood only) 24.1 % (37.0-47.0); Hemoglobin 8.5 g/dl (12.0-16.0); Mean Corpuscular Hemoglobin 35.3 pg (25.0-34.0); Mean Corpuscular Volume 100.0 fL (80.0-100.0); Platelet Count 256 K/uL (130-400); RDW Standard Deviation 41.8 fL (36.4-46.3); Red Blood Count 2.41 M/uL (4.20-5.40); White Blood Count 4.40 K/ul (4.8-10.8)
[2025-05-21 06:48] LABS: Anion Gap 8.0 (3-11); Blood Urea Nitrogen 13.0 mg/dl (6-23); Calcium 9.1 mg/dl (8.6-10.3); Carbon Dioxide 28.0 mmol/L (21-32); Chloride 103.0 mmol/L (98-107); Creatinine Clr Calc Pharmacy 82.1 ml/min; Glucose 91.0 mg/dl (70-99(Fasting)); Magnesium 1.8 mg/dl (1.7-2.4); Potassium 3.4 mmol/L (3.5-5.1); Sodium 139.0 mmol/L (136-145)
--- NOTE | 2025-05-21 14:23 | Hospitalist Progress Note ---
Date of Service May 21, 2025 Assessment & Plan (1) Cellulitis and abscess of neck: Plan: 70 year old female with PMH 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 SUBMANDIBULAR ABSCESS, CELLULITIS Possible metastases vs osteonecrosis/osteomyelitis of the mandible No leukocytosis, lactate WNL CT neck: Extensive permeative lytic appearance of the mandible which is new since PET/CT of December 23, 2024. This could represent osteomyelitis or osteonecrosis. Associated nondisplaced pathologic fractures of the mandible. Although less likely, a neoplastic process such as metastatic disease within the mandible cannot be completely excluded. Associated large multiloculated rim enhancing submental fluid collection, measuring 5.9 x 3 cm with associated cellulitis. This favors an abscess. Close clinical follow-up is recommended although no definite involvement of the floor of the mouth. CXR: Mild congestive changes of the cardiovascular system. Patchy left retrocardiac densities may represent atelectasis versus mild pneumonia. Vitals stable. Continue Zosyn and daptomycin Appreciate oromaxillary surgery input and recommendation Clinically much better today and the infection seems to be localized submentally Likely to have surgery tomorrow or day after She has been feeling better and has been able to eat and drink (2) Hypomagnesemia: Plan: Magnesium: 1.6 at admission. Replace and monitor #Hypokalemia: admitting K: 3.1. Replace and monitor . now better. Potassium remains low at 3.4 Will give potassium lites x 2 #HTN: In ER soft BPs , hold home lisinopril, BP improving, likely resume bin am Blood pressure remains on the lower side at 110/68 #Metastatic Breast CA to bone #Chronic pain Continue letrozole, abemaciclib Continue home methadone #Bipolar disorder #Anxiety Depression continue bupropion, cariprazine, duloxetine, lamotrigine, trazodone #DVT Prophylaxis: SCDs for now in case of procedure Admit telemetry DNR/DNI as per discussion with pt Follows with Dr Hernández for routine care Admission and Anticipated Discharge Date Admission Date: May 19, 2025 Subjective 05/21/2025 The patient was seen and examined in telemetry unit She has been feeling much better with decreasing swelling of supplemental infection She has been able to open her mouth and take food Denies any fever and/or chills Review of Systems Review of Systems: All systems reviewed and are unremarkable except as noted below Physical Exam Physical Exam: Lying in bed without any acute distress Constitutional: well developed, well nourished, + ill appearing and + obese Eyes: PERRL, conjunctivae normal, anicteric sclerae ENMT: Swelling of the chin and submental area with redness and fluctuation Neck: trachea midline, no thyromegaly Respiratory: no respiratory distress Auscultation: lungs clear to auscultation bilaterally Cardiovascular: Rate/Rhythm: regular rate and regular rhythm; not tachycardic Heart Sounds: normal S1 and normal S2; no murmur Extremities: no edema Gastrointestinal (Abdomen): Inspection/Auscultation: normal bowel sounds; abdomen not distended Percussion/Palpation: abdomen soft; abdomen nontender Musculoskeletal: No acute arthritis involving any of the joint Neurologic: normal touch/pain/proprioception and moves all extremities; no focal motor deficits Lymphatic: no cervical or axillary lymphadenopathy Results & Data Results & Data Vital Signs (Past 12 Hours) Vital Signs Temp Pulse Pulse Resp BP Pulse Ox O2 Del Method 05/21/25 11:31 36.7 C 70 18 110/68 98 Room Air 05/21/25 07:57 36.7 C 81 20 108/58 L 95 Room Air 05/21/25 07:05 73 05/21/25 03:39 36.6 C 77 18 106/60 92 Room Air Laboratory Results Short CBC 05/21/25 Range/Units 05:28 WBC 4.40 L (4.8-10.8) K/ul Hgb 8.5 L (12.0-16.0) g/dl Hct 24.1 L (37.0-47.0) % Plt Count 256 (130-400) K/uL BMP 05/21/25 05:28 Sodium 139 Potassium 3.4 L Chloride 103 Carbon Dioxide 28 BUN 13 Creatinine 0.72 Glucose 91 Calcium 9.1 Medications Administered Current Inpatient Medications Abemaciclib (Abemaciclib 150 Mg Tab) 150 mg PO Q12H [facility]ADE Stop: 06/19/25 20:59 Last Admin: 05/21/25 08:00 Dose: 150 mg Acetaminophen (Acetaminophen 500 Mg Tab) 1,000 mg PO Q8H [facility] Stop: 06/18/25 20:29 Last Admin: 05/21/25 12:52 Dose: 1,000 mg Bupropion HCl (Bupropion Sr 150 Mg Tabcr) 300 mg PO DAILY [facility] Stop: 06/19/25 08:59 Last Admin: 05/21/25 08:01 Dose: 300 mg Calcium/Vitamin D (Calcium 600mg + Vit D 400 Iu Tab) 1 tab PO BID [facility] Stop: 06/18/25 20:59 Last Admin: 05/21/25 08:01 Dose: 1 tab Cariprazine (Cariprazine Hcl 1.5 Mg Cap) 1.5 mg PO QAM [facility] Stop: 06/19/25 08:59 Last Admin: 05/21/25 08:00 Dose: 1.5 mg Clonazepam (Clonazepam 0.25 Mg Od Tab) 0.25 mg PO BID PRN PRN Reason: Anxiety Stop: 06/18/25 20:18 Cyanocobalamin (Cyanocobalamin (B-12) 500 Mcg Tablet) 1,000 mcg PO DAILY [facility] Stop: 06/19/25 08:59 Last Admin: 05/21/25 08:02 Dose: 1,000 mcg Duloxetine HCl (Duloxetine Hcl 60 Mg Cap) 60 mg PO BID [facility] Stop: 06/18/25 20:59 Last Admin: 05/21/25 08:01 Dose: 60 mg Heparin Sodium (Porcine) (Heparin 100 Unit/Ml 5ml Flush) 5 ml FLUSH PRN PRN PRN Reason: Flush Stop: 06/19/25 05:13 Last Admin: 05/20/25 18:00 Dose: 5 ml Piperacillin Sod/Tazobactam Sod (Zosyn) 4.5 gm in 100 mls @ 25 mls/hr IV Q8H BLADE; Protocol Stop: 05/26/25 21:59 Last Admin: 05/21/25 12:53 Dose: 25 mls/hr Daptomycin 400 mg/ Syringe 8 mls @ 4 mls/min IV Q24H BLADE; Protocol Stop: 05/21/25 20:29 Last Admin: 05/20/25 19:56 Dose: 4 mls/min Promethazine HCl (Phenergan) 6.25 mg in 50.25 mls @ 201 mls/hr IV Q6H PRN PRN Reason: Nausea And Vomiting Stop: 06/18/25 20:18 Lamotrigine (Lamotrigine 100 Mg Tab) 150 mg PO BID [facility] Stop: 06/18/25 20:59 Last Admin: 05/21/25 08:02 Dose: 150 mg Letrozole (Letrozole 2.5 Mg Tab) 2.5 mg PO DAILY [facility] Stop: 06/19/25 08:59 Last Admin: 05/21/25 08:01 Dose: 2.5 mg Magnesium Hydroxide (Magnesium Hydroxide Susp 30 Ml Udc) 30 ml PO Q12H PRN PRN Reason: Constipation Stop: 06/18/25 20:18 Methadone HCl (Methadone Hcl 5 Mg Tab) 2.5 mg PO BID [facility] Stop: 06/03/25 08:59 Last Admin: 05/21/25 07:59 Dose: 2.5 mg Oxycodone HCl (Oxycodone Hcl Ir 5 Mg Tab (Immediate Release)) 5 mg PO Q6H PRN PRN Reason: Severe Pain (Scale 7, 8, 9,10) Stop: 06/02/25 20:18 Last Admin: 05/20/25 18:02 Dose: 5 mg Pantoprazole Sodium (Pantoprazole 40 Mg Tab) 40 mg PO QAM [facility] Stop: 06/19/25 08:59 Last Admin: 05/21/25 08:01 Dose: 40 mg Polyethylene Glycol (Polyethylene (Miralax) 17 Gm Pack) 17 gm PO DAILY PRN PRN Reason: Constipation Stop: 06/18/25 20:18 Trazodone HCl (Trazodone Hcl 100 Mg Tab) 100 mg PO HS [facility] Stop: 06/18/25 20:59 Last Admin: 05/20/25 19:58 Dose: 100 mg
[2025-05-21] MEDS: POTASSIUM CHLORIDE / WTR 10 MEQ/100 ML PLCT IV SCH (14:44)
[2025-05-22] MEDS: POTASSIUM CHLORIDE / WTR 10 MEQ/100 ML PLCT IV SCH (11:18)
--- NOTE | 2025-05-22 13:42 | Hospitalist Progress Note ---
Date of Service May 22, 2025 Assessment & Plan (1) Cellulitis and abscess of neck: Plan: 70 year old female with PMH 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 SUBMANDIBULAR ABSCESS, CELLULITIS Possible metastases vs osteonecrosis/osteomyelitis of the mandible No leukocytosis, lactate WNL CT neck: Extensive permeative lytic appearance of the mandible which is new since PET/CT of December 23, 2024. This could represent osteomyelitis or osteonecrosis. Associated nondisplaced pathologic fractures of the mandible. Although less likely, a neoplastic process such as metastatic disease within the mandible cannot be completely excluded. Associated large multiloculated rim enhancing submental fluid collection, measuring 5.9 x 3 cm with associated cellulitis. This favors an abscess. Close clinical follow-up is recommended although no definite involvement of the floor of the mouth. CXR: Mild congestive changes of the cardiovascular system. Patchy left retrocardiac densities may represent atelectasis versus mild pneumonia. Vitals stable. Continue Zosyn and daptomycin Appreciate oromaxillary surgery input and recommendation Clinically much better today and the infection seems to be localized submentally Likely to have surgery tomorrow or day after She has been feeling better and has been able to eat and drink Noted to have drainage of pus from the submental abscess She remains free from any significant symptoms and she has been n.p.o. since this morning for possible drainage of the abscess this afternoon (2) Hypomagnesemia: Plan: Magnesium: 1.6 at admission. Replace and monitor Magnesium and electrolytes remain normal #Hypokalemia: admitting K: 3.1. Replace and monitor . now better. Potassium remains low at 3.4 Will give potassium lites x 2 #HTN: In ER soft BPs , hold home lisinopril, BP improving, likely resume bin am Blood pressure remains on the lower side at 110/68 #Metastatic Breast CA to bone #Chronic pain Continue letrozole, abemaciclib Continue home methadone #Bipolar disorder #Anxiety Depression continue bupropion, cariprazine, duloxetine, lamotrigine, trazodone #DVT Prophylaxis: SCDs for now in case of procedure Admit telemetry DNR/DNI as per discussion with pt Follows with Dr Hernández for routine care Admission and Anticipated Discharge Date Admission Date: May 19, 2025 Subjective 05/21/2025 The patient was seen and examined in telemetry unit She has been feeling much better with decreasing swelling of supplemental infection She has been able to open her mouth and take food Denies any fever and/or chills 05/22/2025 The patient was seen and examined in clinic treatment She started to have some drainage from the submental area Otherwise she has been feeling much better Denies any fever and no chills and no other significant symptoms She has been n.p.o. in case she goes for I & D today Review of Systems Review of Systems: All systems reviewed and are unremarkable except as noted below Physical Exam Physical Exam: Lying in bed without any acute distress Constitutional: well developed, well nourished, + ill appearing and + obese Eyes: PERRL, conjunctivae normal, anicteric sclerae Neck: trachea midline, no thyromegaly Respiratory: no respiratory distress Auscultation: lungs clear to auscultation bilaterally Cardiovascular: Rate/Rhythm: regular rate and regular rhythm; not tachycardic Heart Sounds: normal S1 and normal S2; no murmur Extremities: no edema Gastrointestinal (Abdomen): Inspection/Auscultation: normal bowel sounds; abdomen not distended Percussion/Palpation: abdomen soft; abdomen nontender Skin: Swelling, redness and tenderness have decreased a lot. Some drainage or pus noted from submental area Neurologic: normal touch/pain/proprioception and moves all extremities; no focal motor deficits Lymphatic: no cervical or axillary lymphadenopathy Results & Data Results & Data Vital Signs (Past 12 Hours) Vital Signs Temp Pulse Pulse Resp BP Pulse Ox O2 Del Method 05/22/25 10:59 36.6 C 64 16 117/73 96 Room Air 05/22/25 07:30 Room Air 05/22/25 07:21 36.6 C 68 16 120/71 96 Room Air 05/22/25 07:03 71 05/22/25 03:18 36.6 C 78 18 114/67 94 Room Air Medications Administered Current Inpatient Medications Abemaciclib (Abemaciclib 150 Mg Tab) 150 mg PO Q12H [facility] Stop: 06/19/25 20:59 Last Admin: 05/22/25 08:47 Dose: 150 mg Acetaminophen (Acetaminophen 500 Mg Tab) 1,000 mg PO Q8H [facility] Stop: 06/18/25 20:29 Last Admin: 05/22/25 12:16 Dose: 1,000 mg Bupropion HCl (Bupropion Sr 150 Mg Tabcr) 300 mg PO DAILY [facility] Stop: 06/19/25 08:59 Last Admin: 05/22/25 08:52 Dose: 300 mg Calcium/Vitamin D (Calcium 600mg + Vit D 400 Iu Tab) 1 tab PO BID [facility] Stop: 06/18/25 20:59 Last Admin: 05/22/25 08:52 Dose: 1 tab Cariprazine (Cariprazine Hcl 1.5 Mg Cap) 1.5 mg PO QAM [facility] Stop: 06/19/25 08:59 Last Admin: 05/22/25 08:58 Dose: 1.5 mg Clonazepam (Clonazepam 0.25 Mg Od Tab) 0.25 mg PO BID PRN PRN Reason: Anxiety Stop: 06/18/25 20:18 Cyanocobalamin (Cyanocobalamin (B-12) 500 Mcg Tablet) 1,000 mcg PO DAILY [facility] Stop: 06/19/25 08:59 Last Admin: 05/22/25 08:51 Dose: 1,000 mcg Duloxetine HCl (Duloxetine Hcl 60 Mg Cap) 60 mg PO BID [facility] Stop: 06/18/25 20:59 Last Admin: 05/22/25 08:51 Dose: 60 mg Heparin Sodium (Porcine) (Heparin 100 Unit/Ml 5ml Flush) 5 ml FLUSH PRN PRN PRN Reason: Flush Stop: 06/19/25 05:13 Last Admin: 05/20/25 18:00 Dose: 5 ml Piperacillin Sod/Tazobactam Sod (Zosyn) 4.5 gm in 100 mls @ 25 mls/hr IV Q8H [facility]; Protocol Stop: 05/26/25 21:59 Last Infusion: 05/22/25 09:37 Dose: Infused Promethazine HCl (Phenergan) 6.25 mg in 50.25 mls @ 201 mls/hr IV Q6H PRN PRN Reason: Nausea And Vomiting Stop: 06/18/25 20:18 Lamotrigine (Lamotrigine 100 Mg Tab) 150 mg PO BID [facility] Stop: 06/18/25 20:59 Last Admin: 05/22/25 08:51 Dose: 150 mg Letrozole (Letrozole 2.5 Mg Tab) 2.5 mg PO DAILY [facility] Stop: 06/19/25 08:59 Last Admin: 05/22/25 08:49 Dose: 2.5 mg Magnesium Hydroxide (Magnesium Hydroxide Susp 30 Ml Udc) 30 ml PO Q12H PRN PRN Reason: Constipation Stop: 06/18/25 20:18 Methadone HCl (Methadone Hcl 5 Mg Tab) 2.5 mg PO BID [facility] Stop: 06/03/25 08:59 Last Admin: 05/22/25 08:58 Dose: 2.5 mg Oxycodone HCl (Oxycodone Hcl Ir 5 Mg Tab (Immediate Release)) 5 mg PO Q6H PRN PRN Reason: Severe Pain (Scale 7, 8, 9,10) Stop: 06/02/25 20:18 Last Admin: 05/21/25 15:52 Dose: 5 mg Pantoprazole Sodium (Pantoprazole 40 Mg Tab) 40 mg PO QAM [facility] Stop: 06/19/25 08:59 Last Admin: 05/22/25 08:51 Dose: 40 mg Polyethylene Glycol (Polyethylene (Miralax) 17 Gm Pack) 17 gm PO DAILY PRN PRN Reason: Constipation Stop: 06/18/25 20:18 Trazodone HCl (Trazodone Hcl 100 Mg Tab) 100 mg PO HS [facility] Stop: 06/18/25 20:59 Last Admin: 05/21/25 20:17 Dose: 100 mg
[2025-05-22] MEDS: clonazePAM 0.25 MG OD TAB PO PRN (20:13)
--- NOTE | 2025-05-23 07:14 | Progress Note ---
Date of Service May 23, 2025 Assessment & Plan Admission and Anticipated Discharge Date Admission Date: May 19, 2025 Subjective I will plan wide I&D of he submental infection with drain. I will remove/trim the devital necrotic bone on the lower Jaw that is exposed. Severe case of MRONJ NPO Medical clearance obtained senior care follow up will be needed OK for the surgery Monday at 1:15 Consent to be signed before OR Results & Data Vital Signs (Past 12 Hours) Vital Signs Temp Pulse Pulse Resp BP Pulse Ox O2 Del Method 05/23/25 03:31 36.6 C 61 16 96/58 L 97 Room Air 05/22/25 23:49 36.6 C 69 18 97/60 L 93 Room Air 05/22/25 21:47 61 PG Care Time/CCT Total # of Minutes Spent Total Time Spent with Patient: Total time spent is greater than 50% in coordination of care (as documented) at patient's floor/unit and/or counseling patient: Coding Level of Care Code None
[2025-05-23 07:33] LABS: Anion Gap 8.0 (3-11); Blood Urea Nitrogen 13.0 mg/dl (6-23); Calcium 9.0 mg/dl (8.6-10.3); Carbon Dioxide 28.0 mmol/L (21-32); Chloride 102.0 mmol/L (98-107); Creatinine Clr Calc Pharmacy 96.2 ml/min; Glucose 100.0 mg/dl (70-99(Fasting)); Magnesium 1.9 mg/dl (1.7-2.4); Potassium 3.4 mmol/L (3.5-5.1); Sodium 138.0 mmol/L (136-145)
[2025-05-23] MEDS: POTASSIUM CHLORIDE / WTR 10 MEQ/100 ML PLCT IV SCH (08:49)
[2025-05-23] MEDS ORDERED: PROPOFOL IV EMULSION 10 MG/ML 20 ML VIAL IV ONE (11:21)
[2025-05-23] MEDS ORDERED: ONDANSETRON INJ 2 MG/ML 2 ML VIAL ONE (11:22)
[2025-05-23] MEDS ORDERED: LIDOCAINE 2% 2 ML VIAL/AMP(20MG/ML) INFIL ONE (11:22)
[2025-05-23] MEDS ORDERED: DEXAMETHASONE SOD INJ 4 MG/ML VIAL ONE (11:22)
[2025-05-23] MEDS: LACTATED RINGER'S 1,000 ML IV SCH (12:32)
[2025-05-23] MEDS ORDERED: MIDAZOLAM HCL 1 MG/ML 2ML VIAL ONE (12:41)
[2025-05-23] MEDS ORDERED: KETOROLAC 30 MG/ML VIAL ONE (12:48)
[2025-05-23] MEDS ORDERED: KETAMINE HCL 10MG/ML SYR ONE (12:48)
[2025-05-23] MEDS ORDERED: ONDANSETRON INJ 2 MG/ML 2 ML VIAL IV PRN (13:12)
[2025-05-23] MEDS ORDERED: ATROPINE SULFATE 0.1 MG/ML 10ML SYR IV PRN (13:12)
--- NOTE | 2025-05-23 13:12 | Anesthesiology Consultation ---
Date of Service May 23, 2025 Assessment & Plan Chart Review Chart Review: Acceptable Risk for Surgery and Patient NOT seen in Pre Admission Testing Consults Requested none ASA ASA3 Proposed Anesthesia Anesthesia Type: General Risk / Benefits Reviewed With: PT / POA / Parent / Guardian, Accepts Plan and Informed Consent Obtained Additional Comments: patient taking methadone for chronic cancer pain. she did get her dose this morning. History Surgery Operation Date: 05/23/25 13:15 Proposed Procedures p Lower Jaw Incision and Drainage Infected Bone - Brian Landry, DMD Height/Weight Height: 5 ft 6 in Weight: 86.4 kg Allergies Allergy/AdvReac Type Severity Reaction Status Date / Time No Known Allergies Allergy Verified 05/19/25 16:17 Medications Home Medications Medication Instructions Recorded Confirmed Last Taken lamotrigine 150 mg tablet 150 mg PO BID 08/18/22 05/19/25 05/19/25 08:00 (Lamictal) omeprazole 40 mg capsule,delayed 40 mg PO QAM 08/18/22 05/19/25 05/19/25 08:00 release prochlorperazine maleate 10 mg 10 mg PO Q6H PRN Nausea 08/18/22 05/19/25 05/19/25 08:00 tablet (Compazine) abemaciclib 150 mg tablet 150 mg PO BID 12/22/22 05/19/25 05/19/25 08:00 calcium 600 mg (as 1 cap PO BID 12/22/22 05/19/25 05/19/25 08:00 carbonate)-vitamin D3 12.5 mcg (500 unit) capsule (Calcium with Vit D3) denosumab 120 mg/1.7 mL (70 mg/mL) 0 mg subcut MONTHLY 12/22/22 05/19/25 Unknown subcutaneous solution (Xgeva) letrozole 2.5 mg tablet 2.5 mg PO DAILY 12/22/22 05/19/25 05/19/25 08:00 bupropion HCl 100 mg tablet,12 hr 300 mg PO DAILY 03/19/25 05/19/25 05/19/25 08:00 sustained-release (Wellbutrin SR) clonazepam 0.25 mg disintegrating 0.25 mg PO BID PRN Anxiety 03/19/25 05/19/25 05/19/25 08:00 tablet loperamide 2 mg capsule 2 mg PO Q6H 03/19/25 05/19/25 Unknown mecobalamin (vitamin B12) 1,000 1,000 mcg PO DAILY 03/19/25 05/19/25 05/19/25 08:00 mcg chewable tablet methadone 5 mg tablet 2.5 mg PO BID 03/19/25 05/19/25 05/19/25 08:00 ondansetron 4 mg disintegrating 4 mg PO Q6H PRN Nausea And Vomiting 03/19/25 05/19/25 Unknown tablet oxycodone 5 mg tablet 5 mg PO Q6H PRN Pain 03/19/25 05/19/25 05/19/25 08:00 trazodone 100 mg tablet 100 mg PO DAILY 03/19/25 05/19/25 05/19/25 08:00 cariprazine 1.5 mg capsule 1.5 mg PO QAM 05/19/25 05/19/25 05/19/25 08:00 (Cheryl) duloxetine 60 mg capsule,delayed 60 mg PO BID 05/19/25 05/19/25 05/19/25 release lisinopril 10 mg tablet 10 mg PO DAILY 05/19/25 05/19/25 Unknown polyethylene glycol 3350 17 17 g PO DAILY PRN Constipation 05/19/25 05/19/25 05/16/25 gram/dose oral powder sennosides 8.6 mg-docusate sodium 2 tab PO DAILY PRN Constipation 05/19/25 05/19/25 05/19/25 08:00 50 mg tablet (Senexon-S) Active Medications Generic Name Dose Route Start Last Admin Trade Name Yo PRN Reason Stop Dose Admin Abemaciclib 150 mg 05/20/25 21:00 05/23/25 08:10 Abemaciclib 150 Mg Tab PO 06/19/25 20:59 150 mg Q12H BLADE Administration Acetaminophen 1,000 mg 05/19/25 20:30 05/23/25 12:20 Acetaminophen 500 Mg Tab PO 06/18/25 20:29 Not Given Q8H BALDE Bupropion HCl 300 mg 05/20/25 09:00 05/23/25 08:10 Bupropion Sr 150 Mg Tabcr PO 06/19/25 08:59 300 mg DAILY BLADE Administration Calcium/Vitamin D 1 tab 05/19/25 21:00 05/23/25 08:10 Calcium 600mg + Vit D 400 Iu Tab PO 06/18/25 20:59 1 tab BID BLADE Administration Cariprazine 1.5 mg 05/20/25 09:00 05/23/25 08:11 Cariprazine Hcl 1.5 Mg Cap PO 06/19/25 08:59 1.5 mg QAM BLADE Administration Clonazepam 0.25 mg 05/19/25 20:19 05/22/25 20:13 Clonazepam 0.25 Mg Od Tab PO 06/18/25 20:18 0.25 mg BID PRN Administration Anxiety Cyanocobalamin 1,000 mcg 05/20/25 09:00 05/23/25 08:11 Cyanocobalamin (B-12) 500 Mcg Tablet PO 06/19/25 08:59 1,000 mcg DAILY BLADE Administration Duloxetine HCl 60 mg 05/19/25 21:00 05/23/25 08:11 Duloxetine Hcl 60 Mg Cap PO 06/18/25 20:59 60 mg BID BLADE Administration Heparin Sodium (Porcine) 5 ml 05/20/25 05:14 05/20/25 18:00 Heparin 100 Unit/Ml 5ml Flush FLUSH 06/19/25 05:13 5 ml PRN PRN Administration Flush Piperacillin Sod/Tazobactam Sod 4.5 gm in 100 mls @ 25 mls/hr 05/19/25 22:00 05/23/25 10:22 Zosyn IV 05/26/25 21:59 Infused Q8H BLADE Infusion Protocol Lactated Ringer's 1,000 mls @ 15 mls/hr 05/23/25 12:00 05/23/25 12:32 Lr IV 05/26/25 11:59 15 mls/hr .Q24H BLADE Administration Lamotrigine 150 mg 05/19/25 21:00 05/23/25 08:11 Lamotrigine 100 Mg Tab PO 06/18/25 20:59 150 mg BID BLADE Administration Letrozole 2.5 mg 05/20/25 09:00 05/23/25 08:12 Letrozole 2.5 Mg Tab PO 06/19/25 08:59 2.5 mg DAILY BLADE Administration Methadone HCl 2.5 mg 05/20/25 09:00 05/23/25 08:17 Methadone Hcl 5 Mg Tab PO 06/03/25 08:59 2.5 mg BID BLADE Administration Oxycodone HCl 5 mg 05/19/25 20:19 05/21/25 15:52 Oxycodone Hcl Ir 5 Mg Tab (Immediate Release) PO 06/02/25 20:18 5 mg Q6H PRN Administration Severe Pain (Scale 7, 8, 9,10) Pantoprazole Sodium 40 mg 05/20/25 09:00 05/23/25 08:12 Pantoprazole 40 Mg Tab PO 06/19/25 08:59 40 mg QAM BLADE Administration Trazodone HCl 100 mg 05/19/25 21:00 05/22/25 20:15 Trazodone Hcl 100 Mg Tab PO 06/18/25 20:59 100 mg HS BLADE Administration NPO Date Last Intake of Fluids: 05/23/25 Time Last Intake of Fluids: 08:17 Date Last Intake of Solids: 05/21/25 Time Last Intake of Solids: 18:00 Past Medical History Medical History Nausea N/V episodes since 03/2022, no definitive etiology, PCP aware/monitoring Skin cancer Possible BCC, future derm further evlauation per pt Breast cancer Left, recent diagnosis Attention deficit disorder (ADD) Bipolar disorder Anxiety and depression Hypertension Exercise / Class Metabolic Activity III < 4 Walking/Shop/Light housework Past Family History Family History Mother Stroke Father Prostate cancer Hypertension Brother Prostate cancer, Onset Age: 67 Sister Thyroid cancer Brother No problems noted. Grandmother (Paternal) Myocardial infarction Grandmother (Maternal) No problems noted. Other No family history of adverse response to anesthesia Past Surgical History Surgical History S/P breast biopsy, left US guided core needle biopsy left breast mass and axilla lymph node 08/02/22 History of esophagogastroduodenoscopy (EGD) History of colonoscopy History of cholecystectomy History of tooth extraction Past Anesthesia History No Hx of Anesthesia Complications and No Family Hx of Anesthesia Complications History of PONV No Hx of PONV and No Hx of Motion Sickness Social History Smoking Status: Never smoker Hx Alcohol Use: No Alcohol type: beer alcohol intake frequency: a few times a month Hx Substance Use: No Review of Systems ROS Unobtainable: All systems reviewed & are unremarkable except as noted in HPI & below Physical Exam Vital Signs Last Vital Signs Temp 36.9 C 05/23/25 12:27 Pulse 68 05/23/25 12:27 Resp 16 05/23/25 12:27 BP 145/63 H 05/23/25 12:27 Pulse Ox 100 05/23/25 12:27 O2 Del Method Room Air 05/23/25 12:27 ENMT Mouth: no TMJ abnormality Thyromental Distance: > or= 3.5 Finger Breadths Mallampati Class: II Neck normal visual inspection and trachea midline; neck extension not limited Respiratory normal respiratory effort Auscultation: lungs clear to auscultation bilaterally Cardiovascular Rate/Rhythm: regular rate and regular rhythm Heart Sounds: no murmur Musculoskeletal Spine: normal cervical ROM Extremities: full ROM of extremities Neurologic moves all extremities Psychiatric Orientation: alert and oriented x 3 Testing Laboratory Results 05/21/25 05:28 05/23/25 06:08 PT 10.8 Seconds (9.0-12.0) 05/19/25 16:13 INR 1.0 (0.9-1.1) 05/19/25 16:13 APTT 20 Seconds (21-31) L 05/19/25 16:13 Urine Color Yellow 05/19/25 15:40 Urine Appearance Clear (Clear) 05/19/25 15:40 Urine pH 6.0 (4.5-7.5) 05/19/25 15:40 Ur Specific [place] 1.019 (1.000-1.030) 05/19/25 15:40 Urine Protein Trace (Negative) H 05/19/25 15:40 Urine Glucose (UA) Negative (Negative) 05/19/25 15:40 Urine Ketones Negative (Negative) 05/19/25 15:40 Urine Nitrite Negative (Negative) 05/19/25 15:40 Ur Leukocyte Esterase Negative (Negative) 05/19/25 15:40 Urine WBC (Auto) 0-5 /hpf (0-5) 05/19/25 15:40 Urine RBC (Auto) 3-5 /hpf (0-2) H 05/19/25 15:40 U Hyaline Cast (Auto) 0-2 /lpf (0-2) 05/19/25 15:40 U Epithel Cells (Auto) 0-2 /hpf (0-2) 05/19/25 15:40 Urine Bacteria (Auto) None Seen (None Seen) 05/19/25 15:40 05/19/25 14:11 Aerobic Blood Culture - Preliminary Blood No growth in Aerobic bottle after 48 hours. Anaerobic Blood Culture - Preliminary No growth in Anaerobic bottle after 48 hours. 05/19/25 14:30 Aerobic Blood Culture - Preliminary Blood No growth in Aerobic bottle after 48 hours. Anaerobic Blood Culture - Preliminary No growth in Anaerobic bottle after 48 hours.
--- NOTE | 2025-05-23 13:37 | History & Physical Bridge Note ---
Date of Service May 23, 2025 History & Physical Bridge Note I have examined the patient, reviewed the History & Physical and in the interval since the performance of the History & Physical I have noted the following changes of clinical significance: no changes noted OK for the planned procedure
[2025-05-23] MEDS ORDERED: ROCURONIUM BROMIDE 10 MG/ML 5 ML VIAL IV ONE (13:53)
--- NOTE | 2025-05-23 14:08 | Hospitalist Progress Note ---
Date of Service May 23, 2025 Assessment & Plan (1) Cellulitis and abscess of neck: Plan: 70 year old female with PMH 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 SUBMANDIBULAR ABSCESS, CELLULITIS Possible metastases vs osteonecrosis/osteomyelitis of the mandible No leukocytosis, lactate WNL CT neck: Extensive permeative lytic appearance of the mandible which is new since PET/CT of December 23, 2024. This could represent osteomyelitis or osteonecrosis. Associated nondisplaced pathologic fractures of the mandible. Although less likely, a neoplastic process such as metastatic disease within the mandible cannot be completely excluded. Associated large multiloculated rim enhancing submental fluid collection, measuring 5.9 x 3 cm with associated cellulitis. This favors an abscess. Close clinical follow-up is recommended although no definite involvement of the floor of the mouth. CXR: Mild congestive changes of the cardiovascular system. Patchy left retrocardiac densities may represent atelectasis versus mild pneumonia. Vitals stable. Continue Zosyn and daptomycin Appreciate oromaxillary surgery input and recommendation Clinically much better today and the infection seems to be localized submentally Likely to have surgery tomorrow or day after She has been feeling better and has been able to eat and drink Noted to have drainage of pus from the submental abscess She remains free from any significant symptoms and she has been n.p.o. since this morning for possible drainage of the abscess this afternoon She will have lower jaw incision and drainage of abscess and infected bone She may need intravenous antibiotic and ID evaluation following the surgery (2) Hypomagnesemia: Plan: Magnesium: 1.6 at admission. Replace and monitor Magnesium and electrolytes remain normal #Hypokalemia: admitting K: 3.1. Replace and monitor . now better. Potassium remains low at 3.4 Will give potassium lites x 2 Will monitor electrolytes #HTN: In ER soft BPs , hold home lisinopril, BP improving, likely resume bin am Blood pressure remains on the lower side at 110/68 #Metastatic Breast CA to bone #Chronic pain Continue letrozole, abemaciclib Continue home methadone #Bipolar disorder #Anxiety Depression continue bupropion, cariprazine, duloxetine, lamotrigine, trazodone #DVT Prophylaxis: SCDs for now in case of procedure Admit telemetry DNR/DNI as per discussion with pt Follows with Dr Hernández for routine care Admission and Anticipated Discharge Date Admission Date: May 19, 2025 Subjective 05/21/2025 The patient was seen and examined in telemetry unit She has been feeling much better with decreasing swelling of supplemental infection She has been able to open her mouth and take food Denies any fever and/or chills 05/22/2025 The patient was seen and examined in clinic treatment She started to have some drainage from the submental area Otherwise she has been feeling much better Denies any fever and no chills and no other significant symptoms She has been n.p.o. in case she goes for I & D today 05/23/2025 The patient was seen and examined in telemetry unit She has been feeling much better following drainage puss from submental abscess She will have I and D in the afternoon Review of Systems Review of Systems: All systems reviewed and are unremarkable except as noted below Physical Exam Physical Exam: Lying in bed without any acute distress Constitutional: well developed, well nourished, + ill appearing and + obese Eyes: PERRL, conjunctivae normal, anicteric sclerae Neck: trachea midline, no thyromegaly Respiratory: no respiratory distress Auscultation: lungs clear to auscultation bilaterally Cardiovascular: Rate/Rhythm: regular rate and regular rhythm; not tachycardic Heart Sounds: normal S1 and normal S2; no murmur Extremities: no edema Gastrointestinal (Abdomen): Inspection/Auscultation: normal bowel sounds; abdomen not distended Percussion/Palpation: abdomen soft; abdomen nontender Skin: Submental area is swollen, moderately tender with fluctuation and draining jessica pus Neurologic: normal touch/pain/proprioception and moves all extremities; no focal motor deficits Lymphatic: no cervical or axillary lymphadenopathy Results & Data Results & Data Vital Signs (Past 12 Hours) Vital Signs Temp Pulse Pulse Pulse Resp BP Pulse Ox 05/23/25 12:27 36.9 C 68 16 145/63 H 100 05/23/25 10:45 36.6 C 61 18 116/71 97 05/23/25 07:26 56 L 05/23/25 07:14 36.3 C L 67 16 110/69 95 05/23/25 03:31 36.6 C 61 16 96/58 L 97 O2 Del Method 05/23/25 12:27 Room Air 05/23/25 10:45 Room Air 05/23/25 07:26 05/23/25 07:14 Room Air 05/23/25 03:31 Room Air Laboratory Results BMP 05/23/25 06:08 Sodium 138 Potassium 3.4 L Chloride 102 Carbon Dioxide 28 BUN 13 Creatinine 0.62 Glucose 100 H Calcium 9.0 Medications Administered Current Inpatient Medications Abemaciclib (Abemaciclib 150 Mg Tab) 150 mg PO Q12H BLADE Stop: 06/19/25 20:59 Last Admin: 05/23/25 08:10 Dose: 150 mg Acetaminophen (Acetaminophen 500 Mg Tab) 1,000 mg PO Q8H BLADE Stop: 06/18/25 20:29 Last Admin: 05/23/25 12:20 Dose: Not Given Atropine Sulfate (Atropine Sulfate 0.1 Mg/Ml 10ml Syr) 0.5 mg IV Q1M PRN PRN Reason: PACU Use-HR<40 &/or Bradycardi Stop: 05/23/25 21:12 Bupropion HCl (Bupropion Sr 150 Mg Tabcr) 300 mg PO DAILY BLADE Stop: 06/19/25 08:59 Last Admin: 05/23/25 08:10 Dose: 300 mg Calcium/Vitamin D (Calcium 600mg + Vit D 400 Iu Tab) 1 tab PO BID BLADE Stop: 06/18/25 20:59 Last Admin: 05/23/25 08:10 Dose: 1 tab Cariprazine (Cariprazine Hcl 1.5 Mg Cap) 1.5 mg PO QAM BLADE Stop: 06/19/25 08:59 Last Admin: 05/23/25 08:11 Dose: 1.5 mg Clonazepam (Clonazepam 0.25 Mg Od Tab) 0.25 mg PO BID PRN PRN Reason: Anxiety Stop: 06/18/25 20:18 Last Admin: 05/22/25 20:13 Dose: 0.25 mg Cyanocobalamin (Cyanocobalamin (B-12) 500 Mcg Tablet) 1,000 mcg PO DAILY BLADE Stop: 06/19/25 08:59 Last Admin: 05/23/25 08:11 Dose: 1,000 mcg Duloxetine HCl (Duloxetine Hcl 60 Mg Cap) 60 mg PO BID BLADE Stop: 06/18/25 20:59 Last Admin: 05/23/25 08:11 Dose: 60 mg Ephedrine Sulfate (Ephedrine Sulfate 50 Mg/Ml Amp) 5 mg IV Q5M PRN PRN Reason: PACU Use Only-SBP<90 mmHg Stop: 05/23/25 21:12 Fentanyl Citrate (Fentanyl Citrate Pf 100 Mcg/2 Ml Vial) 25 mcg IV Q5M PRN PRN Reason: PACU Use Only-Pain Stop: 05/23/25 21:12 Heparin Sodium (Porcine) (Heparin 100 Unit/Ml 5ml Flush) 5 ml FLUSH PRN PRN PRN Reason: Flush Stop: 06/19/25 05:13 Last Admin: 05/20/25 18:00 Dose: 5 ml Piperacillin Sod/Tazobactam Sod (Zosyn) 4.5 gm in 100 mls @ 25 mls/hr IV Q8H BLADE; Protocol Stop: 05/26/25 21:59 Last Infusion: 05/23/25 10:22 Dose: Infused Promethazine HCl (Phenergan) 6.25 mg in 50.25 mls @ 201 mls/hr IV Q6H PRN PRN Reason: Nausea And Vomiting Stop: 06/18/25 20:18 Lactated Ringer's (Lr) 1,000 mls @ 15 mls/hr IV .Q24H [facility] Stop: 05/26/25 11:59 Last Admin: 05/23/25 12:32 Dose: 15 mls/hr Lamotrigine (Lamotrigine 100 Mg Tab) 150 mg PO BID [facility] Stop: 06/18/25 20:59 Last Admin: 05/23/25 08:11 Dose: 150 mg Letrozole (Letrozole 2.5 Mg Tab) 2.5 mg PO DAILY [facility] Stop: 06/19/25 08:59 Last Admin: 05/23/25 08:12 Dose: 2.5 mg Magnesium Hydroxide (Magnesium Hydroxide Susp 30 Ml Udc) 30 ml PO Q12H PRN PRN Reason: Constipation Stop: 06/18/25 20:18 Methadone HCl (Methadone Hcl 5 Mg Tab) 2.5 mg PO BID [facility] Stop: 06/03/25 08:59 Last Admin: 05/23/25 08:17 Dose: 2.5 mg Ondansetron HCl (Ondansetron Inj 2 Mg/Ml 2 Ml Vial) 4 mg IV ONCE PRN PRN Reason: PACU Use Only-Nausea/Vomiting Stop: 05/23/25 21:12 Oxycodone HCl (Oxycodone Hcl Ir 5 Mg Tab (Immediate Release)) 5 mg PO Q6H PRN PRN Reason: Severe Pain (Scale 7, 8, 9,10) Stop: 06/02/25 20:18 Last Admin: 05/21/25 15:52 Dose: 5 mg Pantoprazole Sodium (Pantoprazole 40 Mg Tab) 40 mg PO [facility] Stop: 06/19/25 08:59 Last Admin: 05/23/25 08:12 Dose: 40 mg Polyethylene Glycol (Polyethylene (Miralax) 17 Gm Pack) 17 gm PO DAILY PRN PRN Reason: Constipation Stop: 06/18/25 20:18 Trazodone HCl (Trazodone Hcl 100 Mg Tab) 100 mg PO [facility] Stop: 06/18/25 20:59 Last Admin: 05/22/25 20:15 Dose: 100 mg
[2025-05-23] MEDS: CHLORHEXIDINE GLUCONATE 0.12% 480 ML MT ONE (14:16)
[2025-05-23] MEDS ORDERED: REMIFENTANIL HCL 1 MG VIAL IV ONE (14:51)
[2025-05-23] MEDS ORDERED: SUGAMMADEX SODIUM 200 MG/2 ML VIAL IV ONE (15:24)
[2025-05-23] MEDS: ceFAZolin 330 MG/ML 1 GM VIAL ONE (15:30)
[2025-05-23] MEDS: BACITRACIN OINT 14 GM TUBE ONE (15:30)
[2025-05-23] MEDS: BUPIVACAINE/EPINEPHRINE 0.5% 1:200,000 1.8 ML CARP ONE (15:31)
--- NOTE | 2025-05-23 15:50 | Post Operative Brief Note ---
PG Immediate Post Op with CF Date of Surgery May 23, 2025 Pre & Post Diagnosis Operation Date: 05/23/25 13:15 Pre-Op Diagnosis: Submental Infection Post-Op Diagnosis: Submental Infection I identified the patient and participated in the time-out.: Yes Procedure Operation Date: 05/23/25 13:15 Actual Procedures p Incision and Drainage of Facial Infection with Removal of Necrotic Lower Jaw Bone(Not Applicable) - Brian Landry, ANUJA Surgeon Brian Landry, ANUJA Associate Professor Of Art none Estimated Blood Loss 10 Findings Consistent with Post-Op Diagnosis acute bone necrosis Alberto angina like infection Specimens Specimen Description: Culture #1--Submental--for routine culture and sensitivity, gram stain, aerobes and anaerobes A. Necrotic bone of mandible Drains Ella Drain (5/8 inch cut in half) Complications advanced MRONJ of the lower jaw Disposition Accompanied Patient To Recovery: Yes
--- NOTE | 2025-05-23 17:05 | Communication Note ---
Date of Service: May 23, 2025 Please give PO medications through [facility] for now.I tried to do it but failed. Thank you DR Annie Apodaca
[2025-05-23] MEDS: HYDROmorphone INJ 0.5 MG/0.5 ML SYR IV PRN ×2 (17:17→18:41)
[2025-05-23] MEDS: CALCIUM 600MG + VIT D 400 IU TAB PO SCH (17:40)
[2025-05-23] MEDS: PROMETHAZINE 6.25 MG/50.25 ML BAG IV PRN (17:46)
[2025-05-23] MEDS: ACETAMINOPHEN 500 MG TAB PEG SCH (17:46)
[2025-05-23] MEDS ORDERED: Nursing to Pharmacy Communication SCH ×2 (18:15→18:30)
[2025-05-23] MEDS ORDERED: HYDROmorphone INJ 0.5 MG/0.5 ML SYR IV PRN (18:18)
[2025-05-23] MEDS ORDERED: PANTOprazole 40 MG/10 ML SYR IV SCH (21:00)
[2025-05-23] MEDS: ABEMACICLIB 150 MG PO SCH (21:30)
--- NOTE | 2025-05-24 00:25 | XRay Report ---
Exam(s): XR KUB EXAM: XR Abdomen, 1 View CLINICAL HISTORY: Reason for exam: NG tube placement. TECHNIQUE: Frontal supine view of the abdomen/pelvis. COMPARISON: No relevant prior studies available. FINDINGS: Lower thorax: Underinflated lungs with increased density in the left lung base consistent with atelectasis, pneumonia, and/or effusion. Mild degenerative changes in the lower thoracic and upper lumbar spine. Gastrointestinal tract: Unremarkable. No dilated bowel loops are seen in the upper abdomen. Organs: Cholecystectomy clips in the right upper quadrant of the abdomen. Bones/joints: Unremarkable. No acute fracture. Tubes, lines and devices: There is an NG tube extending into the mid stomach. The stomach is nondistended. Right-sided Port-A-Cath with the tip in the superior vena cava. IMPRESSION: 1. Underinflated lungs with increased density in the left lung base consistent with atelectasis, pneumonia, and/or effusion. 2. There is an NG tube extending into the mid stomach. The stomach is nondistended. Electronically signed by: Edd García MD 05/24/25 00:25 AM
[2025-05-24] MEDS: PANTOprazole 40 MG/10 ML SYR IV SCH (08:25)
[2025-05-24 08:31] LABS: Hematocrit (blood only) 26.7 % (37.0-47.0); Hemoglobin 9.4 g/dl (12.0-16.0); Immature Granulocytes # (auto) 0.01 K/uL (0.01-0.20); Immature Granulocytes % (auto) 0.2 %; Mean Corpuscular Hemoglobin 35.6 pg (25.0-34.0); Mean Corpuscular Volume 101.1 fL (80.0-100.0); Platelet Count 268 K/uL (130-400); RDW Standard Deviation 42.0 fL (36.4-46.3); Red Blood Count 2.64 M/uL (4.20-5.40); White Blood Count 4.17 K/ul (4.8-10.8)
[2025-05-24] MEDS: POLYETHYLENE (MIRALAX) 17 GM PACK PO PRN (08:31)
[2025-05-24 08:48] LABS: Anion Gap 8.0 (3-11); Blood Urea Nitrogen 12.0 mg/dl (6-23); Calcium 8.8 mg/dl (8.6-10.3); Carbon Dioxide 28.0 mmol/L (21-32); Chloride 100.0 mmol/L (98-107); Creatinine Clr Calc Pharmacy 85.3 ml/min; Glucose 92.0 mg/dl (70-99(Fasting)); Magnesium 1.9 mg/dl (1.7-2.4); Potassium 3.4 mmol/L (3.5-5.1); Sodium 136.0 mmol/L (136-145)
--- NOTE | 2025-05-24 12:27 | Progress Note ---
Date of Service May 24, 2025 Assessment & Plan Admission and Anticipated Discharge Date Admission Date: May 19, 2025 Subjective Post Op infection evaluation at 24 hours The infected area is responding well Swelling is starting to go down and the tissue is back to starting to return normal in size and texture. Less drainage is noted today Drain will be removed in a few days Cultures pending as is the pathology Infection responding to the antibiotics,debridement of the necrotic bone and the I and D. Classic case of KARY OK to start oral Meds and very soft diet I requested that the patient continue with massage, heat and wound care. At this time the area is well healed and responded well to treatment. I will see her Monday Going forward given the extent of the bone necrosis and soft tissue abscess superintendent [employer] antibiotic will be needed to allow adequate bone and soft tissue healing Home IV antibiotic therapy many need to be considered as this should be treated as an acute osteomyelitis Results & Data Vital Signs (Past 12 Hours) Vital Signs Temp Pulse Pulse Resp BP Pulse Ox O2 Del Method 05/24/25 11:12 36.8 C 74 18 112/71 95 Room Air 05/24/25 07:19 36.4 C L 70 18 138/78 97 Room Air 05/24/25 07:19 65 05/24/25 02:34 36.6 C 65 18 100/63 95 Room Air PG Care Time/CCT Total # of Minutes Spent Total Time Spent with Patient: Total time spent is greater than 50% in coordination of care (as documented) at patient's floor/unit and/or counseling patient: Coding Level of Care Code None
--- NOTE | 2025-05-24 12:38 | Hospitalist Progress Note ---
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 SUBMANDIBULAR ABSCESS, CELLULITIS Possible metastases vs osteonecrosis/osteomyelitis of the mandible No leukocytosis, lactate WNL CT neck: Extensive permeative lytic appearance of the mandible which is new since PET/CT of December 23, 2024. This could represent osteomyelitis or osteonecrosis. Associated nondisplaced pathologic fractures of the mandible. Although less likely, a neoplastic process such as metastatic disease within the mandible cannot be completely excluded. Associated large multiloculated rim enhancing submental fluid collection, measuring 5.9 x 3 cm with associated cellulitis. This favors an abscess. Close clinical follow-up is recommended although no definite involvement of the floor of the mouth. CXR: Mild congestive changes of the cardiovascular system. Patchy left retrocardiac densities may represent atelectasis versus mild pneumonia. Vitals stable. Continue Zosyn and daptomycin Appreciate oromaxillary surgery input and recommendation Clinically much better today and the infection seems to be localized submentally Likely to have surgery tomorrow or day after She has been feeling better and has been able to eat and drink Noted to have drainage of pus from the submental abscess She remains free from any significant symptoms and she has been n.p.o. since this morning for possible drainage of the abscess this afternoon She will have lower jaw incision and drainage of abscess and infected bone She may need intravenous antibiotic and ID evaluation following the surgery Will put ID consult for recommendation of antibiotic and duration Likely discharge on Monday (2) Hypomagnesemia: Plan: Magnesium: 1.6 at admission. Replace and monitor Magnesium and electrolytes remain normal #Hypokalemia: admitting K: 3.1. Replace and monitor . now better. 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 #Chronic pain Continue letrozole, abemaciclib Continue home methadone #Bipolar disorder #Anxiety Depression continue bupropion, cariprazine, duloxetine, lamotrigine, trazodone #DVT Prophylaxis: SCDs for now in case of procedure Admit telemetry DNR/DNI as per discussion with pt Follows with Dr Hernández for routine care Admission and Anticipated Discharge Date Admission Date: May 19, 2025 Subjective 05/21/2025 The patient was seen and examined in telemetry unit She has been feeling much better with decreasing swelling of supplemental infection She has been able to open her mouth and take food Denies any fever and/or chills 05/22/2025 The patient was seen and examined in clinic treatment She started to have some drainage from the submental area Otherwise she has been feeling much better Denies any fever and no chills and no other significant symptoms She has been n.p.o. in case she goes for I & D today 05/23/2025 The patient was seen and examined in telemetry unit She has been feeling much better following drainage puss from submental abscess She will have I and D in the afternoon 05/24/2025 The patient was seen and examined in telemetry unit She is status post I&D of submental abscess Has been feeling much better and will start soft diet as per the surgeon from today Review of Systems Review of Systems: All systems reviewed and are unremarkable except as noted below Physical Exam Physical Exam: Lying in bed without any acute distress Constitutional: well developed, well nourished, + ill appearing and + obese Eyes: PERRL, conjunctivae normal, anicteric sclerae Neck: trachea midline, no thyromegaly Respiratory: no respiratory distress Auscultation: lungs clear to auscultation bilaterally Cardiovascular: Rate/Rhythm: regular rate and regular rhythm; not tachycardic Heart Sounds: normal S1 and normal S2; no murmur Extremities: no edema Gastrointestinal (Abdomen): Inspection/Auscultation: normal bowel sounds; abdomen not distended Percussion/Palpation: abdomen soft; abdomen nontender Musculoskeletal: No acute arthritis involving any of the joint Neurologic: normal touch/pain/proprioception and moves all extremities; no focal motor deficits Lymphatic: no cervical or axillary lymphadenopathy Results & Data Results & Data Vital Signs (Past 12 Hours) Vital Signs Temp Pulse Pulse Resp BP Pulse Ox O2 Del Method 05/24/25 11:12 36.8 C 74 18 112/71 95 Room Air 05/24/25 07:19 36.4 C L 70 18 138/78 97 Room Air 05/24/25 07:19 65 05/24/25 02:34 36.6 C 65 18 100/63 95 Room Air
[2025-05-25 07:01] LABS: Hematocrit (blood only) 25.5 % (37.0-47.0); Hemoglobin 8.8 g/dl (12.0-16.0); Immature Granulocytes # (auto) 0.02 K/uL (0.01-0.20); Immature Granulocytes % (auto) 0.5 %; Mean Corpuscular Hemoglobin 35.2 pg (25.0-34.0); Mean Corpuscular Volume 102.0 fL (80.0-100.0); Platelet Count 293 K/uL (130-400); RDW Standard Deviation 42.8 fL (36.4-46.3); Red Blood Count 2.50 M/uL (4.20-5.40); White Blood Count 3.73 K/ul (4.8-10.8)
[2025-05-25 07:25] LABS: Anion Gap 5.0 (3-11); Blood Urea Nitrogen 13.0 mg/dl (6-23); Calcium 9.0 mg/dl (8.6-10.3); Carbon Dioxide 32.0 mmol/L (21-32); Chloride 102.0 mmol/L (98-107); Creatinine Clr Calc Pharmacy 91.9 ml/min; Glucose 103.0 mg/dl (70-99(Fasting)); Magnesium 2.0 mg/dl (1.7-2.4); Potassium 3.5 mmol/L (3.5-5.1); Sodium 139.0 mmol/L (136-145)
[2025-05-25] MEDS: POTASSIUM CHLORIDE CRTAB 20 MEQ TABCR PO STA (08:43)
--- NOTE | 2025-05-25 12:10 | Hospitalist Progress Note ---
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 SUBMANDIBULAR ABSCESS, CELLULITIS Possible metastases vs osteonecrosis/osteomyelitis of the mandible No leukocytosis, lactate WNL CT neck: Extensive permeative lytic appearance of the mandible which is new since PET/CT of December 23, 2024. This could represent osteomyelitis or osteonecrosis. Associated nondisplaced pathologic fractures of the mandible. Although less likely, a neoplastic process such as metastatic disease within the mandible cannot be completely excluded. Associated large multiloculated rim enhancing submental fluid collection, measuring 5.9 x 3 cm with associated cellulitis. This favors an abscess. Close clinical follow-up is recommended although no definite involvement of the floor of the mouth. CXR: Mild congestive changes of the cardiovascular system. Patchy left retrocardiac densities may represent atelectasis versus mild pneumonia. Vitals stable. Continue Zosyn and daptomycin Appreciate oromaxillary surgery input and recommendation Clinically much better today and the infection seems to be localized submentally Likely to have surgery tomorrow or day after She has been feeling better and has been able to eat and drink Noted to have drainage of pus from the submental abscess She remains free from any significant symptoms and she has been n.p.o. since this morning for possible drainage of the abscess this afternoon She will have lower jaw incision and drainage of abscess and infected bone She may need intravenous antibiotic and ID evaluation following the surgery Will put ID consult for recommendation of antibiotic and duration Clinically much better and will continue with current management NG tube has been taken out and she has been eating and drinking orally with soft food Awaiting ID evaluation and likely discharge tomorrow (2) Hypomagnesemia: Plan: Magnesium: 1.6 at admission. Replace and monitor Magnesium and electrolytes remain normal #Hypokalemia: admitting K: 3.1. Replace and monitor . now better. 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 #Chronic pain Continue letrozole, abemaciclib Continue home methadone #Bipolar disorder #Anxiety Depression continue bupropion, cariprazine, duloxetine, lamotrigine, trazodone #DVT Prophylaxis: SCDs for now in case of procedure Admit telemetry DNR/DNI as per discussion with pt Follows with Dr Hernández for routine care Admission and Anticipated Discharge Date Admission Date: May 19, 2025 Subjective 05/21/2025 The patient was seen and examined in telemetry unit She has been feeling much better with decreasing swelling of supplemental infection She has been able to open her mouth and take food Denies any fever and/or chills 05/22/2025 The patient was seen and examined in clinic treatment She started to have some drainage from the submental area Otherwise she has been feeling much better Denies any fever and no chills and no other significant symptoms She has been n.p.o. in case she goes for I & D today 05/23/2025 The patient was seen and examined in telemetry unit She has been feeling much better following drainage puss from submental abscess She will have I and D in the afternoon 05/24/2025 The patient was seen and examined in telemetry unit She is status post I&D of submental abscess Has been feeling much better and will start soft diet as per the surgeon from today 05/25/2025 The patient was seen and examined in telemetry unit She has been feeling much better and has been tolerating soft diet orally Denies any other significant symptoms Review of Systems Review of Systems: All systems reviewed and are unremarkable except as noted below Physical Exam Physical Exam: Lying in bed without any acute distress Constitutional: well developed, well nourished, + ill appearing and + obese Eyes: PERRL, conjunctivae normal, anicteric sclerae ENMT: Submental area is bandaged without any soaking of the dressing Neck: trachea midline, no thyromegaly Respiratory: no respiratory distress Auscultation: lungs clear to auscultation bilaterally Cardiovascular: Rate/Rhythm: regular rate and regular rhythm; not tachycardic Heart Sounds: normal S1 and normal S2; no murmur Extremities: no edema Gastrointestinal (Abdomen): Inspection/Auscultation: normal bowel sounds; abdomen not distended Percussion/Palpation: abdomen soft; abdomen nontender Musculoskeletal: No acute arthritis involving any of the joint Neurologic: normal touch/pain/proprioception and moves all extremities; no focal motor deficits Lymphatic: no cervical or axillary lymphadenopathy Results & Data Results & Data Vital Signs (Past 12 Hours) Vital Signs Temp Pulse Pulse Resp BP Pulse Ox O2 Del Method 05/25/25 10:53 36.7 C 71 18 110/69 96 Room Air 05/25/25 08:06 36.3 C L 70 18 147/84 H 97 Room Air 05/25/25 07:17 60 05/25/25 02:32 36.5 C 61 18 102/60 95 Room Air Laboratory Results Short CBC 05/25/25 Range/Units 06:00 WBC 3.73 L (4.8-10.8) K/ul Hgb 8.8 L (12.0-16.0) g/dl Hct 25.5 L (37.0-47.0) % Plt Count 293 (130-400) K/uL BMP 05/25/25 06:00 Sodium 139 Potassium 3.5 Chloride 102 Carbon Dioxide 32 BUN 13 Creatinine 0.65 Glucose 103 H Calcium 9.0 Medications Administered Current Inpatient Medications Abemaciclib (Abemaciclib 150 Mg Tab) 150 mg PO Q12H [facility] Stop: 06/22/25 20:59 Last Admin: 05/25/25 08:43 Dose: 150 mg Acetaminophen (Acetaminophen 500 Mg Tab) 1,000 mg PEG Q8H [facility] Stop: 06/22/25 17:29 Last Admin: 05/25/25 08:46 Dose: 1,000 mg Bupropion HCl (Bupropion Sr 150 Mg Tabcr) 300 mg PO DAILY [facility] Stop: 06/19/25 08:59 Last Admin: 05/25/25 08:44 Dose: 300 mg Calcium/Vitamin D (Calcium 600mg + Vit D 400 Iu Tab) 1 tab PO BID [facility] Stop: 06/18/25 17:29 Last Admin: 05/25/25 08:45 Dose: 1 tab Cariprazine (Cariprazine Hcl 1.5 Mg Cap) 1.5 mg PO QAM [facility] Stop: 06/19/25 08:59 Last Admin: 05/25/25 08:45 Dose: 1.5 mg Clonazepam (Clonazepam 0.25 Mg Od Tab) 0.25 mg PO BID PRN PRN Reason: Anxiety Stop: 06/18/25 20:18 Last Admin: 05/22/25 20:13 Dose: 0.25 mg Cyanocobalamin (Cyanocobalamin (B-12) 500 Mcg Tablet) 1,000 mcg PO DAILY [facility] Stop: 06/19/25 08:59 Last Admin: 05/25/25 08:45 Dose: 1,000 mcg Duloxetine HCl (Duloxetine Hcl 60 Mg Cap) 60 mg PO BID [facility] Stop: 06/18/25 20:59 Last Admin: 05/25/25 08:45 Dose: 60 mg Heparin Sodium (Porcine) (Heparin 100 Unit/Ml 5ml Flush) 5 ml FLUSH PRN PRN PRN Reason: Flush Stop: 06/19/25 05:13 Last Admin: 05/25/25 10:03 Dose: 5 ml Hydromorphone HCl (Hydromorphone Inj 0.5 Mg/0.5 Ml Syr) 0.5 mg IV Q2H PRN PRN Reason: PAIN 6/10 OR GREATER ON NRS Stop: 06/06/25 18:27 Last Admin: 05/24/25 20:18 Dose: 0.5 mg Piperacillin Sod/Tazobactam Sod (Zosyn) 4.5 gm in 100 mls @ 25 mls/hr IV Q8H [facility]ADE; Protocol Stop: 05/26/25 21:59 Last Infusion: 05/25/25 09:31 Dose: Infused Promethazine HCl (Phenergan) 6.25 mg in 50.25 mls @ 201 mls/hr IV Q6H PRN PRN Reason: Nausea And Vomiting Stop: 06/18/25 20:18 Last Infusion: 05/23/25 18:30 Dose: Infused Pantoprazole Sodium (Protonix) 40 mg in 10 mls @ 5 mls/min IV DAILY [facility] Stop: 06/23/25 08:59 Last Admin: 05/25/25 08:46 Dose: 5 mls/min Lamotrigine (Lamotrigine 100 Mg Tab) 150 mg PO BID [facility] Stop: 06/18/25 20:59 Last Admin: 05/25/25 08:45 Dose: 150 mg Letrozole (Letrozole 2.5 Mg Tab) 2.5 mg PO DAILY [facility] Stop: 06/19/25 08:59 Last Admin: 05/25/25 08:46 Dose: 2.5 mg Magnesium Hydroxide (Magnesium Hydroxide Susp 30 Ml Udc) 30 ml PO Q12H PRN PRN Reason: Constipation Stop: 06/18/25 20:18 Methadone HCl (Methadone Hcl 5 Mg Tab) 2.5 mg PO BID [facility] Stop: 06/03/25 08:59 Last Admin: 05/25/25 08:49 Dose: 2.5 mg Oxycodone HCl (Oxycodone Hcl Ir 5 Mg Tab (Immediate Release)) 5 mg PO Q6H PRN PRN Reason: Severe Pain (Scale 7, 8, 9,10) Stop: 06/02/25 20:18 Last Admin: 05/24/25 15:26 Dose: 5 mg Pantoprazole Sodium (Pantoprazole 40 Mg Tab) 40 mg PO QAM [facility] Stop: 06/19/25 08:59 Last Admin: 05/23/25 08:12 Dose: 40 mg Polyethylene Glycol (Polyethylene (Miralax) 17 Gm Pack) 17 gm PO DAILY PRN PRN Reason: Constipation Stop: 06/18/25 20:18 Last Admin: 05/25/25 09:15 Dose: 17 gm Trazodone HCl (Trazodone Hcl 100 Mg Tab) 100 mg PO HS [facility] Stop: 06/18/25 20:59 Last Admin: 05/24/25 20:22 Dose: 100 mg
[2025-05-26 07:24] VITALS: RESP 18
--- NOTE | 2025-05-26 13:16 | Infectious Disease Consult ---
Date of Service May 26, 2025 Telehealth Information I performed this visit using a real-time telehealth connection between my location and the patients location ([facility]). After connecting through interactive tele-video, patient was identified by name and date of and/or wristband check.Patient (or authorized healthcare sales representative supervisor) was informed that this was a telemedicine visit and it was being conducted confidentially over secure lines. My office door was closed and no one else was present in the room with me.Patient (or authorized healthcare sales representative supervisor) provided consent to proceed with the visit, expressed an understanding of privacy and security of the telemedicine visit, and gave permission to have a hospital sales representative supervisor in the room in order to assist with the visit and to conduct portions of the visit, as needed. I informed the patient (or authorized healthcare sales representative supervisor) that I reviewed their record and presented the opportunity for them to ask any questions regarding the visit today. The patient agreed to participate. 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 At [facility], OMFS consulted and patient taken to OR On 05/23/2025 for Incision and Drainage of Facial Infection with Removal of Necrotic Lower Jaw Bone. OR culture (+) Strep. Plan: 1. Left Jaw OM - Recommend stopping Zosyn IV. Recommend starting Ceftriaxone 2g q24 IV and Metronidazole 500 mg PO TID. - Recommend 6 weeks of total antibiotic treatment s/p OR on 05/23/2025, End date: 07/04/2025 - Recommend CMP and CBC with diff weekly - Recommend CRP every 2 weeks - okay to remove PICC line after end date of 07/04/2025. - we will not active monitor nor follow-up patient, if additional recs or follow-up is needed please refer patient to [facility] ID clinic for follow-up and monitoring. 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 In the ED, No leukocytosis, lactate WNL. CT neck: Extensive permeative lytic appearance of the mandible which is new since PET/CT of December 23, 2024. This could represent osteomyelitis or osteonecrosis. Associated nondisplaced pathologic fractures of the mandible. Although less likely, a neoplastic process such as metastatic disease within the mandible cannot be completely excluded. Associated large multiloculated rim enhancing submental fluid collection, measuring 5.9 x 3 cm with associated cellulitis. This favors an abscess. Close clinical follow-up is recommended although no definite involvement of the floor of the mouth. CXR: Mild congestive changes of the cardiovascular system. Patchy left retrocardiac densities may represent atelectasis versus mild pneumonia. Pt given IV Zosyn and Daptomycin. At [facility], OMFS consulted and patient taken to OR On 05/23/2025 for Incision and Drainage of Facial Infection with Removal of Necrotic Lower Jaw Bone. OR culture (+) Strep. ID consulted for Jaw OM. Allergies Allergy/AdvReac Type Severity Reaction Status Date / Time No Known Allergies Allergy Verified 05/19/25 16:17 Home Medications Medication Instructions Recorded Confirmed Type lamotrigine 150 mg tablet 150 mg PO BID 08/18/22 05/19/25 History (Lamictal) omeprazole 40 mg capsule,delayed 40 mg PO QAM 08/18/22 05/19/25 History release prochlorperazine maleate 10 mg 10 mg PO Q6H PRN Nausea 08/18/22 05/19/25 History tablet (Compazine) abemaciclib 150 mg tablet 150 mg PO BID 12/22/22 05/19/25 History calcium 600 mg (as 1 cap PO BID 12/22/22 05/19/25 History carbonate)-vitamin D3 12.5 mcg (500 unit) capsule (Calcium with Vit D3) denosumab 120 mg/1.7 mL (70 mg/mL) 0 mg subcut MONTHLY 12/22/22 05/19/25 History subcutaneous solution (Xgeva) letrozole 2.5 mg tablet 2.5 mg PO DAILY 12/22/22 05/19/25 History bupropion HCl 100 mg tablet,12 hr 300 mg PO DAILY 03/19/25 05/19/25 History sustained-release (Wellbutrin SR) clonazepam 0.25 mg disintegrating 0.25 mg PO BID PRN Anxiety 03/19/25 05/19/25 History tablet loperamide 2 mg capsule 2 mg PO Q6H 03/19/25 05/19/25 History mecobalamin (vitamin B12) 1,000 1,000 mcg PO DAILY 03/19/25 05/19/25 History mcg chewable tablet methadone 5 mg tablet 2.5 mg PO BID 03/19/25 05/19/25 History ondansetron 4 mg disintegrating 4 mg PO Q6H PRN Nausea And Vomiting 03/19/25 05/19/25 History tablet oxycodone 5 mg tablet 5 mg PO Q6H PRN Pain 03/19/25 05/19/25 History trazodone 100 mg tablet 100 mg PO DAILY 03/19/25 05/19/25 History cariprazine 1.5 mg capsule 1.5 mg PO QAM 05/19/25 05/19/25 History (Vraylar) duloxetine 60 mg capsule,delayed 60 mg PO BID 05/19/25 05/19/25 History release lisinopril 10 mg tablet 10 mg PO DAILY 05/19/25 05/19/25 History polyethylene glycol 3350 17 17 g PO DAILY PRN Constipation 05/19/25 05/19/25 History gram/dose oral powder sennosides 8.6 mg-docusate sodium 2 tab PO DAILY PRN Constipation 05/19/25 05/19/25 History 50 mg tablet (Senexon-S) Patient History Medical History (Updated 05/26/25 @ 16:03 by Oleksandr Chicas II, DO) Nausea N/V episodes since 03/2022, no definitive etiology, PCP aware/monitoring Skin cancer Possible BCC, future derm further evlauation per pt Breast cancer Left, recent diagnosis Attention deficit disorder (ADD) Bipolar disorder Anxiety and depression Hypertension Surgical History (Updated 05/23/25 @ 16:35 by Lizzeth Pritchett RN) History of incision and drainage (05/23/25) Incision and Drainage of Facial Infection with Removal of Necrotic Lower Jaw Bone - Brian Landry, DMD S/P breast biopsy, left US guided core needle biopsy left breast mass and axilla lymph node 08/02/22 History of esophagogastroduodenoscopy (EGD) History of colonoscopy History of cholecystectomy History of tooth extraction Family History Mother Stroke Father Prostate cancer Hypertension Brother Prostate cancer, Onset Age: 67 Sister Thyroid cancer Brother No problems noted. Grandmother (Paternal) Myocardial infarction Grandmother (Maternal) No problems noted. Other No family history of adverse response to anesthesia Social History Smoking Status: Never smoker Second Hand Exposure: Yes ( A CHILD); Hx Alcohol Use: No Hx Substance Use: No Preferred Language: Micronesian Communication Ability: Effective Crystal Slicer Required: No Beliefs That Will Affect Care: None Current Living Situation: Alone current occupational status: employed current occupation: [employer] Feels Safe at Home: Yes Childhood Exposure to Second-Hand Smoke: Yes Assistive Devices: None Review of Systems all negative except mild jaw pain Physical Exam NA Results & Data Vital Signs (Past 12 Hours) Vital Signs Temp Pulse Resp BP Pulse Ox O2 Del Method 05/26/25 11:23 36.3 C L 72 18 171/80 H 97 Room Air 05/26/25 08:00 Room Air 05/26/25 07:24 36.5 C 68 18 134/81 96 Room Air 05/26/25 03:17 36.4 C L 75 22 105/64 94 Room Air Laboratory Results 05/23/25 14:16 Gram Stain - Final Fluid,Undescribed Aerobic and Anaerobic Culture - Preliminary Streptococcus anginosus 05/23/25 14:16 Gram Stain - Final Fluid,Undescribed Aerobic and Anaerobic Culture - Preliminary Streptococcus anginosus Diagnostic Findings CT neck on 05/19/2025 IMPRESSION: 1. Extensive permeative lytic appearance of the mandible which is new since PET/CT of December 23, 2024. This could represent osteomyelitis or osteonecrosis. Associated nondisplaced pathologic fractures of the mandible. Although less likely, a neoplastic process such as metastatic disease within the mandible cannot be completely excluded. 2. Associated large multiloculated rim enhancing submental fluid collection, measuring 5.9 x 3 cm with associated cellulitis. This favors an abscess. Close clinical follow-up is recommended although no definite involvement of the floor of the mouth. Medications Administered Home Medications Medication Instructions Recorded Confirmed Last Taken lamotrigine 150 mg tablet 150 mg PO BID 08/18/22 05/19/25 05/19/25 08:00 (Lamictal) omeprazole 40 mg capsule,delayed 40 mg PO QAM 08/18/22 05/19/25 05/19/25 08:00 release prochlorperazine maleate 10 mg 10 mg PO Q6H PRN Nausea 08/18/22 05/19/25 05/19/25 08:00 tablet (Compazine) abemaciclib 150 mg tablet 150 mg PO BID 12/22/22 05/19/25 05/19/25 08:00 calcium 600 mg (as 1 cap PO BID 12/22/22 05/19/25 05/19/25 08:00 carbonate)-vitamin D3 12.5 mcg (500 unit) capsule (Calcium with Vit D3) denosumab 120 mg/1.7 mL (70 mg/mL) 0 mg subcut MONTHLY 12/22/22 05/19/25 Unknown subcutaneous solution (Xgeva) letrozole 2.5 mg tablet 2.5 mg PO DAILY 12/22/22 05/19/25 05/19/25 08:00 bupropion HCl 100 mg tablet,12 hr 300 mg PO DAILY 03/19/25 05/19/25 05/19/25 08:00 sustained-release (Wellbutrin SR) clonazepam 0.25 mg disintegrating 0.25 mg PO BID PRN Anxiety 03/19/25 05/19/25 05/19/25 08:00 tablet loperamide 2 mg capsule 2 mg PO Q6H 03/19/25 05/19/25 Unknown mecobalamin (vitamin B12) 1,000 1,000 mcg PO DAILY 03/19/25 05/19/25 05/19/25 08:00 mcg chewable tablet methadone 5 mg tablet 2.5 mg PO BID 03/19/25 05/19/25 05/19/25 08:00 ondansetron 4 mg disintegrating 4 mg PO Q6H PRN Nausea And Vomiting 03/19/25 05/19/25 Unknown tablet oxycodone 5 mg tablet 5 mg PO Q6H PRN Pain 03/19/25 05/19/25 05/19/25 08:00 trazodone 100 mg tablet 100 mg PO DAILY 03/19/25 05/19/25 05/19/25 08:00 cariprazine 1.5 mg capsule 1.5 mg PO QAM 05/19/25 05/19/25 05/19/25 08:00 (Cheryl) duloxetine 60 mg capsule,delayed 60 mg PO BID 05/19/25 05/19/25 05/19/25 release lisinopril 10 mg tablet 10 mg PO DAILY 05/19/25 05/19/25 Unknown polyethylene glycol 3350 17 17 g PO DAILY PRN Constipation 05/19/25 05/19/25 05/16/25 gram/dose oral powder sennosides 8.6 mg-docusate sodium 2 tab PO DAILY PRN Constipation 05/19/25 05/19/25 05/19/25 08:00 50 mg tablet (Senexon-S) Active Medications Generic Name Dose Route Start Last Admin Trade Name Freq PRN Reason Stop Dose Admin Abemaciclib 150 mg 05/23/25 21:00 05/26/25 08:40 Abemaciclib 150 Mg Tab PO 06/22/25 20:59 150 mg Q12H BLADE Administration Acetaminophen 1,000 mg 05/23/25 17:30 05/26/25 08:36 Acetaminophen 500 Mg Tab PEG 06/22/25 17:29 1,000 mg Q8H BLADE Administration Bupropion HCl 300 mg 05/20/25 09:00 05/26/25 08:36 Bupropion Sr 150 Mg Tabcr PO 06/19/25 08:59 300 mg DAILY BLADE Administration Calcium/Vitamin D 1 tab 05/23/25 17:30 05/26/25 08:38 Calcium 600mg + Vit D 400 Iu Tab PO 06/18/25 17:29 1 tab BID BLADE Administration Cariprazine 1.5 mg 05/20/25 09:00 05/26/25 08:39 Cariprazine Hcl 1.5 Mg Cap PO 06/19/25 08:59 1.5 mg QAM BLADE Administration Clonazepam 0.25 mg 05/19/25 20:19 05/22/25 20:13 Clonazepam 0.25 Mg Od Tab PO 06/18/25 20:18 0.25 mg BID PRN Administration Anxiety Cyanocobalamin 1,000 mcg 05/20/25 09:00 05/26/25 08:38 Cyanocobalamin (B-12) 500 Mcg Tablet PO 06/19/25 08:59 1,000 mcg DAILY BLADE Administration Duloxetine HCl 60 mg 05/19/25 21:00 05/26/25 08:37 Duloxetine Hcl 60 Mg Cap PO 06/18/25 20:59 60 mg BID BLADE Administration Heparin Sodium (Porcine) 5 ml 05/20/25 05:14 05/25/25 10:03 Heparin 100 Unit/Ml 5ml Flush FLUSH 06/19/25 05:13 5 ml PRN PRN Administration Flush Hydromorphone HCl 0.5 mg 05/23/25 18:28 05/25/25 14:13 Hydromorphone Inj 0.5 Mg/0.5 Ml Syr IV 06/06/25 18:27 0.5 mg Q2H PRN Administration PAIN 6/10 OR GREATER ON NRS Promethazine HCl 6.25 mg in 50.25 mls @ 201 mls/hr 05/19/25 20:19 05/23/25 18:30 Phenergan IV 06/18/25 20:18 Infused Q6H PRN Infusion Nausea And Vomiting Pantoprazole Sodium 40 mg in 10 mls @ 5 mls/min 05/24/25 09:00 05/26/25 08:41 Protonix IV 06/23/25 08:59 5 mls/min DAILY BLADE Administration Lamotrigine 150 mg 05/19/25 21:00 05/26/25 08:37 Lamotrigine 100 Mg Tab PO 06/18/25 20:59 150 mg BID BLADE Administration Letrozole 2.5 mg 05/20/25 09:00 05/26/25 08:40 Letrozole 2.5 Mg Tab PO 06/19/25 08:59 2.5 mg DAILY BLADE Administration Methadone HCl 2.5 mg 05/20/25 09:00 05/26/25 08:36 Methadone Hcl 5 Mg Tab PO 06/03/25 08:59 2.5 mg BID BLADE Administration Oxycodone HCl 5 mg 05/19/25 20:19 05/26/25 14:25 Oxycodone Hcl Ir 5 Mg Tab (Immediate Release) PO 06/02/25 20:18 5 mg Q6H PRN Administration Severe Pain (Scale 7, 8, 9,10) Pantoprazole Sodium 40 mg 05/20/25 09:00 05/23/25 08:12 Pantoprazole 40 Mg Tab PO 06/19/25 08:59 40 mg QAM BLADE Administration Polyethylene Glycol 17 gm 05/19/25 20:19 05/25/25 09:15 Polyethylene (Miralax) 17 Gm Pack PO 06/18/25 20:18 17 gm DAILY PRN Administration Constipation Trazodone HCl 100 mg 05/19/25 21:00 05/25/25 20:40 Trazodone Hcl 100 Mg Tab PO 06/18/25 20:59 100 mg HS BLADE Administration
--- NOTE | 2025-05-26 14:29 | Hospitalist Progress Note ---
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 SUBMANDIBULAR ABSCESS, CELLULITIS Possible metastases vs osteonecrosis/osteomyelitis of the mandible No leukocytosis, lactate WNL CT neck: Extensive permeative lytic appearance of the mandible which is new since PET/CT of December 23, 2024. This could represent osteomyelitis or osteonecrosis. Associated nondisplaced pathologic fractures of the mandible. Although less likely, a neoplastic process such as metastatic disease within the mandible cannot be completely excluded. Associated large multiloculated rim enhancing submental fluid collection, measuring 5.9 x 3 cm with associated cellulitis. This favors an abscess. Close clinical follow-up is recommended although no definite involvement of the floor of the mouth. CXR: Mild congestive changes of the cardiovascular system. Patchy left retrocardiac densities may represent atelectasis versus mild pneumonia. Vitals stable. Continue Zosyn and daptomycin Appreciate oromaxillary surgery input and recommendation Clinically much better today and the infection seems to be localized submentally Likely to have surgery tomorrow or day after She has been feeling better and has been able to eat and drink Noted to have drainage of pus from the submental abscess She remains free from any significant symptoms and she has been n.p.o. since this morning for possible drainage of the abscess this afternoon She will have lower jaw incision and drainage of abscess and infected bone She may need intravenous antibiotic and ID evaluation following the surgery Will put ID consult for recommendation of antibiotic and duration Clinically much better and will continue with current management NG tube has been taken out and she has been eating and drinking orally with soft food Awaiting ID evaluation and likely discharge tomorrow Remains medically stable and awaiting ID recommendation prior to discharge (2) Hypomagnesemia: Plan: Magnesium: 1.6 at admission. Replace and monitor Magnesium and electrolytes remain normal #Hypokalemia: admitting K: 3.1. Replace and monitor . now better. 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 #Chronic pain Continue letrozole, abemaciclib Continue home methadone #Bipolar disorder #Anxiety Depression continue bupropion, cariprazine, duloxetine, lamotrigine, trazodone #DVT Prophylaxis: SCDs for now in case of procedure Admit telemetry DNR/DNI as per discussion with pt Follows with Dr Hernández for routine care Admission and Anticipated Discharge Date Admission Date: May 19, 2025 Subjective 05/21/2025 The patient was seen and examined in telemetry unit She has been feeling much better with decreasing swelling of supplemental infection She has been able to open her mouth and take food Denies any fever and/or chills 05/22/2025 The patient was seen and examined in clinic treatment She started to have some drainage from the submental area Otherwise she has been feeling much better Denies any fever and no chills and no other significant symptoms She has been n.p.o. in case she goes for I & D today 05/23/2025 The patient was seen and examined in telemetry unit She has been feeling much better following drainage puss from submental abscess She will have I and D in the afternoon 05/24/2025 The patient was seen and examined in telemetry unit She is status post I&D of submental abscess Has been feeling much better and will start soft diet as per the surgeon from today 05/25/2025 The patient was seen and examined in telemetry unit She has been feeling much better and has been tolerating soft diet orally Denies any other significant symptoms 05/26/2025 The patient was seen and examined in telemetry unit She has been feeling much better with minimal pain in the submental area She has been eating and drinking reasonably No fever and no chills and awaiting definitive antibiotic management before discharge Review of Systems Review of Systems: All systems reviewed and are unremarkable except as noted below Physical Exam Physical Exam: Lying in bed without any acute distress Constitutional: well developed, well nourished, + ill appearing and + obese Eyes: PERRL, conjunctivae normal, anicteric sclerae Neck: trachea midline, no thyromegaly Respiratory: no respiratory distress Auscultation: lungs clear to auscultation bilaterally Cardiovascular: Rate/Rhythm: regular rate and regular rhythm; not tachycardic Heart Sounds: normal S1 and normal S2; no murmur Extremities: no edema Gastrointestinal (Abdomen): Inspection/Auscultation: normal bowel sounds; abdomen not distended Percussion/Palpation: abdomen soft; abdomen nontender Neurologic: normal touch/pain/proprioception and moves all extremities; no focal motor deficits Lymphatic: no cervical or axillary lymphadenopathy Results & Data Results & Data Vital Signs (Past 12 Hours) Vital Signs Temp Pulse Resp BP Pulse Ox O2 Del Method 05/26/25 11:23 36.3 C L 72 18 171/80 H 97 Room Air 05/26/25 08:00 Room Air 05/26/25 07:24 36.5 C 68 18 134/81 96 Room Air 05/26/25 03:17 36.4 C L 75 22 105/64 94 Room Air Medications Administered Current Inpatient Medications Abemaciclib (Abemaciclib 150 Mg Tab) 150 mg PO Q12H BLADE Stop: 06/22/25 20:59 Last Admin: 05/26/25 08:40 Dose: 150 mg Acetaminophen (Acetaminophen 500 Mg Tab) 1,000 mg PEG Q8H BLADE Stop: 06/22/25 17:29 Last Admin: 05/26/25 08:36 Dose: 1,000 mg Bupropion HCl (Bupropion Sr 150 Mg Tabcr) 300 mg PO DAILY BLADE Stop: 06/19/25 08:59 Last Admin: 05/26/25 08:36 Dose: 300 mg Calcium/Vitamin D (Calcium 600mg + Vit D 400 Iu Tab) 1 tab PO BID BLADE Stop: 06/18/25 17:29 Last Admin: 05/26/25 08:38 Dose: 1 tab Cariprazine (Cariprazine Hcl 1.5 Mg Cap) 1.5 mg PO QAM BLADE Stop: 06/19/25 08:59 Last Admin: 05/26/25 08:39 Dose: 1.5 mg Clonazepam (Clonazepam 0.25 Mg Od Tab) 0.25 mg PO BID PRN PRN Reason: Anxiety Stop: 06/18/25 20:18 Last Admin: 05/22/25 20:13 Dose: 0.25 mg Cyanocobalamin (Cyanocobalamin (B-12) 500 Mcg Tablet) 1,000 mcg PO DAILY BLADE Stop: 06/19/25 08:59 Last Admin: 05/26/25 08:38 Dose: 1,000 mcg Duloxetine HCl (Duloxetine Hcl 60 Mg Cap) 60 mg PO BID BLADE Stop: 06/18/25 20:59 Last Admin: 05/26/25 08:37 Dose: 60 mg Heparin Sodium (Porcine) (Heparin 100 Unit/Ml 5ml Flush) 5 ml FLUSH PRN PRN PRN Reason: Flush Stop: 06/19/25 05:13 Last Admin: 05/25/25 10:03 Dose: 5 ml Hydromorphone HCl (Hydromorphone Inj 0.5 Mg/0.5 Ml Syr) 0.5 mg IV Q2H PRN PRN Reason: PAIN 6/10 OR GREATER ON NRS Stop: 06/06/25 18:27 Last Admin: 05/25/25 14:13 Dose: 0.5 mg Piperacillin Sod/Tazobactam Sod (Zosyn) 4.5 gm in 100 mls @ 25 mls/hr IV Q8H BLADE; Protocol Stop: 05/26/25 21:59 Last Admin: 05/26/25 14:23 Dose: 25 mls/hr Promethazine HCl (Phenergan) 6.25 mg in 50.25 mls @ 201 mls/hr IV Q6H PRN PRN Reason: Nausea And Vomiting Stop: 06/18/25 20:18 Last Infusion: 05/23/25 18:30 Dose: Infused Pantoprazole Sodium (Protonix) 40 mg in 10 mls @ 5 mls/min IV DAILY BLADE Stop: 06/23/25 08:59 Last Admin: 05/26/25 08:41 Dose: 5 mls/min Lamotrigine (Lamotrigine 100 Mg Tab) 150 mg PO BID BLADE Stop: 06/18/25 20:59 Last Admin: 05/26/25 08:37 Dose: 150 mg Letrozole (Letrozole 2.5 Mg Tab) 2.5 mg PO DAILY BLADE Stop: 06/19/25 08:59 Last Admin: 05/26/25 08:40 Dose: 2.5 mg Magnesium Hydroxide (Magnesium Hydroxide Susp 30 Ml Udc) 30 ml PO Q12H PRN PRN Reason: Constipation Stop: 06/18/25 20:18 Methadone HCl (Methadone Hcl 5 Mg Tab) 2.5 mg PO BID [facility] Stop: 06/03/25 08:59 Last Admin: 05/26/25 08:36 Dose: 2.5 mg Oxycodone HCl (Oxycodone Hcl Ir 5 Mg Tab (Immediate Release)) 5 mg PO Q6H PRN PRN Reason: Severe Pain (Scale 7, 8, 9,10) Stop: 06/02/25 20:18 Last Admin: 05/26/25 14:25 Dose: 5 mg Pantoprazole Sodium (Pantoprazole 40 Mg Tab) [facility] [place] Stop: 06/19/25 08:59 Last Admin: 05/23/25 08:12 Dose: 40 mg Polyethylene Glycol (Polyethylene (Miralax) 17 Gm Pack) 17 gm PO DAILY PRN PRN Reason: Constipation Stop: 06/18/25 20:18 Last Admin: 05/25/25 09:15 Dose: 17 gm Trazodone HCl (Trazodone Hcl 100 Mg Tab) 100 mg PO HS [facility] Stop: 06/18/25 20:59 Last Admin: 05/25/25 20:40 Dose: 100 mg
[2025-05-26] MEDS: metroNIDAZOLE 500 MG TAB PO SCH (20:03)
[2025-05-26] MEDS: cefTRIAXone SODIUM 2,000 MG/50 ML BAG IV SCH (20:11)
[2025-05-27] MEDS: INFLUENZA VACC TS2025-26(65y+)/PF (IIV3) 0.5mL Syr IM ONE (10:12)
--- NOTE | 2025-05-27 11:04 | Hospitalist Progress Note ---
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 SUBMANDIBULAR ABSCESS, CELLULITIS Possible metastases vs osteonecrosis/osteomyelitis of the mandible No leukocytosis, lactate WNL CT neck: Extensive permeative lytic appearance of the mandible which is new since PET/CT of December 23, 2024. This could represent osteomyelitis or osteonecrosis. Associated nondisplaced pathologic fractures of the mandible. Although less likely, a neoplastic process such as metastatic disease within the mandible cannot be completely excluded. Associated large multiloculated rim enhancing submental fluid collection, measuring 5.9 x 3 cm with associated cellulitis. This favors an abscess. Close clinical follow-up is recommended although no definite involvement of the floor of the mouth. CXR: Mild congestive changes of the cardiovascular system. Patchy left retrocardiac densities may represent atelectasis versus mild pneumonia. Vitals stable. Continue Zosyn and daptomycin Appreciate oromaxillary surgery input and recommendation Clinically much better today and the infection seems to be localized submentally Likely to have surgery tomorrow or day after She has been feeling better and has been able to eat and drink Noted to have drainage of pus from the submental abscess She remains free from any significant symptoms and she has been n.p.o. since this morning for possible drainage of the abscess this afternoon She will have lower jaw incision and drainage of abscess and infected bone She may need intravenous antibiotic and ID evaluation following the surgery Will put ID consult for recommendation of antibiotic and duration Clinically much better and will continue with current management NG tube has been taken out and she has been eating and drinking orally with soft food Awaiting ID evaluation and likely discharge tomorrow Remains medically stable and awaiting ID recommendation prior to discharge Appreciate ID input and recommendationceftriaxone 2 g IV every 24 hours and metronidazole 5 mg p.o. 3 times daily for a total of 6 weeks. Will get CBC and CMP weekly and CRP every 2 weeks She will be discharged this afternoon (2) Hypomagnesemia: Plan: Magnesium: 1.6 at admission. Replace and monitor Magnesium and electrolytes remain normal #Hypokalemia: admitting K: 3.1. Replace and monitor . now better. 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 Discussed with the patient in detail and she refused to go to rehab and would like to go home and discharged today. She strongly believes that she can take care of herself with the help of home health. Admission and Anticipated Discharge Date Admission Date: May 19, 2025 Subjective 05/21/2025 The patient was seen and examined in telemetry unit She has been feeling much better with decreasing swelling of supplemental infection She has been able to open her mouth and take food Denies any fever and/or chills 05/22/2025 The patient was seen and examined in clinic treatment She started to have some drainage from the submental area Otherwise she has been feeling much better Denies any fever and no chills and no other significant symptoms She has been n.p.o. in case she goes for I & D today 05/23/2025 The patient was seen and examined in telemetry unit She has been feeling much better following drainage puss from submental abscess She will have I and D in the afternoon 05/24/2025 The patient was seen and examined in telemetry unit She is status post I&D of submental abscess Has been feeling much better and will start soft diet as per the surgeon from today 05/25/2025 The patient was seen and examined in telemetry unit She has been feeling much better and has been tolerating soft diet orally Denies any other significant symptoms 05/26/2025 The patient was seen and examined in telemetry unit She has been feeling much better with minimal pain in the submental area She has been eating and drinking reasonably No fever and no chills and awaiting definitive antibiotic management before discharge 05/27/2025 The patient was seen and examined in telemetry unit She has been stable and denies any significant symptoms She refused to go to rehab and definitely wants to go home and to be discharged Likely discharge this afternoon Review of Systems Review of Systems: All systems reviewed and are unremarkable except as noted below Physical Exam Physical Exam: Lying in bed without any acute distress Constitutional: well developed, well nourished, + ill appearing and + obese Eyes: PERRL, conjunctivae normal, anicteric sclerae Neck: trachea midline, no thyromegaly Respiratory: no respiratory distress Auscultation: lungs clear to auscultation bilaterally Cardiovascular: Rate/Rhythm: regular rate and regular rhythm; not tachycardic Heart Sounds: normal S1 and normal S2; no murmur Extremities: no edema Gastrointestinal (Abdomen): Inspection/Auscultation: normal bowel sounds; abdomen not distended Percussion/Palpation: abdomen soft; abdomen nontender Neurologic: normal touch/pain/proprioception and moves all extremities; no focal motor deficits Lymphatic: no cervical or axillary lymphadenopathy Results & Data Results & Data Vital Signs (Past 12 Hours) Vital Signs Temp Pulse Pulse Resp BP Pulse Ox O2 Del Method 05/27/25 08:00 Room Air 05/27/25 07:39 36.4 C L 68 18 153/91 H 94 Room Air 05/27/25 07:03 64 05/27/25 02:23 36.5 C 65 18 124/76 97 Room Air Medications Administered Current Inpatient Medications Abemaciclib (Abemaciclib 150 Mg Tab) 150 mg PO Q12H BLADE Stop: 06/22/25 20:59 Last Admin: 05/27/25 08:45 Dose: Not Given Acetaminophen (Acetaminophen 500 Mg Tab) 1,000 mg PEG Q8H [facility]ADE Stop: 06/22/25 17:29 Last Admin: 05/27/25 10:56 Dose: 1,000 mg Bupropion HCl (Bupropion Sr 150 Mg Tabcr) 300 mg PO DAILY [facility] Stop: 06/19/25 08:59 Last Admin: 05/27/25 08:45 Dose: 300 mg Calcium/Vitamin D (Calcium 600mg + Vit D 400 Iu Tab) 1 tab PO BID [facility] Stop: 06/18/25 17:29 Last Admin: 05/27/25 08:45 Dose: 1 tab Cariprazine (Cariprazine Hcl 1.5 Mg Cap) 1.5 mg PO QAM [facility] Stop: 06/19/25 08:59 Last Admin: 05/27/25 08:46 Dose: 1.5 mg Clonazepam (Clonazepam 0.25 Mg Od Tab) 0.25 mg PO BID PRN PRN Reason: Anxiety Stop: 06/18/25 20:18 Last Admin: 05/22/25 20:13 Dose: 0.25 mg Cyanocobalamin (Cyanocobalamin (B-12) 500 Mcg Tablet) 1,000 mcg PO DAILY [facility] Stop: 06/19/25 08:59 Last Admin: 05/27/25 08:47 Dose: 1,000 mcg Duloxetine HCl (Duloxetine Hcl 60 Mg Cap) 60 mg PO BID [facility] Stop: 06/18/25 20:59 Last Admin: 05/27/25 08:47 Dose: 60 mg Heparin Sodium (Porcine) (Heparin 100 Unit/Ml 5ml Flush) 5 ml FLUSH PRN PRN PRN Reason: Flush Stop: 06/19/25 05:13 Last Admin: 05/25/25 10:03 Dose: 5 ml Hydromorphone HCl (Hydromorphone Inj 0.5 Mg/0.5 Ml Syr) 0.5 mg IV Q2H PRN PRN Reason: PAIN 6/10 OR GREATER ON NRS Stop: 06/06/25 18:27 Last Admin: 05/26/25 20:09 Dose: 0.5 mg Promethazine HCl (Phenergan) 6.25 mg in 50.25 mls @ 201 mls/hr IV Q6H PRN PRN Reason: Nausea And Vomiting Stop: 06/18/25 20:18 Last Infusion: 05/23/25 18:30 Dose: Infused Pantoprazole Sodium (Protonix) 40 mg in 10 mls @ 5 mls/min IV DAILY [facility] Stop: 06/23/25 08:59 Last Admin: 05/27/25 08:53 Dose: 5 mls/min Ceftriaxone Sodium (Rocephin) 2,000 mg in 50 mls @ 100 mls/hr IV Q24H [facility]ADE Stop: 07/07/25 21:59 Last Infusion: 05/26/25 20:41 Dose: Infused Lamotrigine (Lamotrigine 100 Mg Tab) 150 mg PO BID [facility] Stop: 06/18/25 20:59 Last Admin: 05/27/25 08:48 Dose: 150 mg Letrozole (Letrozole 2.5 Mg Tab) 2.5 mg PO DAILY [facility] Stop: 06/19/25 08:59 Last Admin: 05/27/25 08:46 Dose: 2.5 mg Magnesium Hydroxide (Magnesium Hydroxide Susp 30 Ml Udc) 30 ml PO Q12H PRN PRN Reason: Constipation Stop: 06/18/25 20:18 Methadone HCl (Methadone Hcl 5 Mg Tab) 2.5 mg PO BID [facility] Stop: 06/03/25 08:59 Last Admin: 05/27/25 08:52 Dose: 2.5 mg Metronidazole (Metronidazole 500 Mg Tab) 500 mg PO TID [facility]; Protocol Stop: 07/07/25 20:59 Last Admin: 05/27/25 08:46 Dose: 500 mg Oxycodone HCl (Oxycodone Hcl Ir 5 Mg Tab (Immediate Release)) 5 mg PO Q6H PRN PRN Reason: Severe Pain (Scale 7, 8, 9,10) Stop: 06/02/25 20:18 Last Admin: 05/26/25 14:25 Dose: 5 mg Pantoprazole Sodium (Pantoprazole 40 Mg Tab) 40 mg PO QAM [facility] Stop: 06/19/25 08:59 Last Admin: 05/23/25 08:12 Dose: 40 mg Polyethylene Glycol (Polyethylene (Miralax) 17 Gm Pack) 17 gm PO DAILY PRN PRN Reason: Constipation Stop: 06/18/25 20:18 Last Admin: 05/25/25 09:15 Dose: 17 gm Trazodone HCl (Trazodone Hcl 100 Mg Tab) 100 mg PO HS [facility] Stop: 06/18/25 20:59 Last Admin: 05/26/25 20:02 Dose: 100 mg
[2025-05-27 11:05] VITALS: BP 129/80; TEMP 98.2; O2SAT 97
[2025-05-27 15:16] VITALS: PULSE 95
--- NOTE | 2025-05-27 15:56 | Discharge Summary ---
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 Patient states 3 days ago noticed erythema and edema under jaw that has progressively worsened and spreading down anterior neck. Reports today having increased pain and hurt to open jaw and unable to fully open jaw. She states eats soft foods at baseline and able to tolerate soft foods. She reports breathing through her mouth and throat feels dry. Denies pain to throat with swallowing or choking. Denies fever or chills. States was constipated and uses softeners and laxatives. Reports last month ran out of methadone and had N/V/D. She has since restarted and N/V/D has since improved. Reports having nighttime diarrhea x 1 episode a night past several nights. She has held her stool softeners and laxatives. States having intermittent frontal GREGORY past couple of days. Denies fever/chills, diaphoresis, denies any further vomiting, dizziness, syncope, vision changes, neck stiffness, CP, SOB, palpitations, cough, otalgia, rhinorrhea, abdominal pain, extremity weakness, extremity edema, rashes, urinary symptoms. Admission Exam Per Admitting Provider Physical Exam: General: no apparent distress, chronic ill appearing overweight female Head: normocephalic, atraumatic Eyes: conjunctiva non-injected, anicteric ENT: normal inspection external ears, nose, mucous membranes dry. under chin/mandible with large edema, erythema and warmth and significant firmness that extends down anterior neck, +tenderness to palpation, no open areas or discharge noted Neck: as above, trachea midline Lungs: clear, no respiratory distress, no wheezing/rhonchi/rales CV: RRR, no murmur, no pretibial edema Abd: normal BS, soft, non-tender Ext: no cyanosis, no calf tenderness Neuro: A&O x 3, no focal deficits noted, normal affect Skin: as above in neck, otherwise skin warm, dry Principal Diagnosis Submandibular abscess with osteomyelitis of mandible, metastatic breast carcinoma to bone Discharge Exam Lying in bed without any acute distress Constitutional well developed, well nourished, + ill appearing and + obese Eyes PERRL, conjunctivae normal, anicteric sclerae Neck trachea midline, no thyromegaly Respiratory no respiratory distress Auscultation: lungs clear to auscultation bilaterally Cardiovascular Rate/Rhythm: regular rate and regular rhythm; not tachycardic Heart Sounds: normal S1 and normal S2; no murmur Extremities: no edema Gastrointestinal (Abdomen) Inspection/Auscultation: normal bowel sounds; abdomen not distended Percussion/Palpation: abdomen soft; abdomen nontender Neurologic normal touch/pain/proprioception and moves all extremities; no focal motor deficits Lymphatic no cervical or axillary lymphadenopathy Discharge Data Allergies Allergy/AdvReac Type Severity Reaction Status Date / Time No Known Allergies Allergy Verified 05/19/25 16:17 Consultations 05/19/25 17:36 ED Decision to Admit Stat 05/19/25 18:14 ED Decision to Admit Stat 05/19/25 20:19 Consult Oromaxillofacial Surgery Routine 05/24/25 12:38 Consult Infectious Diseases Routine Procedures Performed Operation Date: 05/23/25 13:15 Actual Procedures p Incision and Drainage of Facial Infection with Removal of Necrotic Lower Jaw Bone(Not Applicable) - Brian Landry, ANUJA Ordered Studies 05/19/25 13:13 CT neck soft tissues [CT soft tissue neck w con] Stat Hospital Course (1) Cellulitis and abscess of neck: 70 year old female with PMH 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 SUBMANDIBULAR ABSCESS, CELLULITIS Possible metastases vs osteonecrosis/osteomyelitis of the mandible No leukocytosis, lactate WNL CT neck: Extensive permeative lytic appearance of the mandible which is new since PET/CT of December 23, 2024. This could represent osteomyelitis or osteonecrosis. Associated nondisplaced pathologic fractures of the mandible. Although less likely, a neoplastic process such as metastatic disease within the mandible cannot be completely excluded. Associated large multiloculated rim enhancing submental fluid collection, measuring 5.9 x 3 cm with associated cellulitis. This favors an abscess. Close clinical follow-up is recommended although no definite involvement of the floor of the mouth. CXR: Mild congestive changes of the cardiovascular system. Patchy left retrocardiac densities may represent atelectasis versus mild pneumonia. Vitals stable. Continue Zosyn and daptomycin Appreciate oromaxillary surgery input and recommendation Clinically much better today and the infection seems to be localized submentally Likely to have surgery tomorrow or day after She has been feeling better and has been able to eat and drink Noted to have drainage of pus from the submental abscess She remains free from any significant symptoms and she has been n.p.o. since this morning for possible drainage of the abscess this afternoon She will have lower jaw incision and drainage of abscess and infected bone She may need intravenous antibiotic and ID evaluation following the surgery Will put ID consult for recommendation of antibiotic and duration Clinically much better and will continue with current management NG tube has been taken out and she has been eating and drinking orally with soft food Awaiting ID evaluation and likely discharge tomorrow Remains medically stable and awaiting ID recommendation prior to discharge Appreciate ID input and recommendationceftriaxone 2 g IV every 24 hours and metronidazole 5 mg p.o. 3 times daily for a total of 6 weeks. Will get CBC and CMP weekly and CRP every 2 weeks She will be discharged this afternoon (2) Hypomagnesemia: Magnesium: 1.6 at admission. Replace and monitor Magnesium and electrolytes remain normal #Hypokalemia: admitting K: 3.1. Replace and monitor . now better. 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 Discussed with the patient in detail and she refused to go to rehab and would like to go home and discharged today. She strongly believes that she can take care of herself with the help of home health. Total Time Total Time Spent Total Time Spent (In Minutes): 35 minutes Discharge Plan Discharge Items Patient Disposition: Home - Home Health Services Reason For Visit: FACE CELLULITIS/ABSCESS Discharge Diagnosis: Submandibular abscess with osteomyelitis of mandible, metastatic breast carcinoma to bone Condition on Discharge: Fair Activity: Resume your previous activity Non-emergency contact: Primary Care Provider Call non-emergency contact if: you have any medication questions and your symptoms worsen Follow-up/Referrals: Carol Hernández DO [Primary Care Provider] - (The office will call you with a follow up appointment.) Diet: Regular Diet Texture: Pureed (blended smooth) Addtl Attending Provider Instructions: Please take precautions to avoid falls Finish the course of antibiotic as advised end date 07/04/2025 Have your wound dressed as advised Keep taking your medications as before and trying [id number] probiotics Please keep appointments with your healthcare provider Pending Studies at Discharge: No Stand-Alone Forms: My [employer], Smoking Cessation Medications and DC Order Prescriptions: New metronidazole 500 mg Tablet 500 mg PO TID 35 Days Qty: 105 0RF Probiotic 3 billion cell capsule 3,000 mmu cells PO DAILY Qty: 42 0RF Rx Instructions: administer with a meal ceftriaxone 2 gram recon soln 2 g IV DAILY Continued oxycodone 5 mg tablet 5 mg PO Q6H PRN (Reason: Pain) methadone 5 mg tablet 2.5 mg PO BID clonazepam 0.25 mg tablet,disintegrating 0.25 mg PO BID PRN (Reason: Anxiety) loperamide 2 mg capsule 2 mg PO Q6H ondansetron 4 mg tablet,disintegrating 4 mg PO Q6H PRN (Reason: Nausea And Vomiting) trazodone 100 mg tablet 100 mg PO DAILY mecobalamin (vitamin B12) 1,000 mcg tablet,chewable 1,000 mcg PO DAILY letrozole 2.5 mg tablet 2.5 mg PO DAILY abemaciclib 150 mg tablet 150 mg PO BID Xgeva 120 mg/1.7 mL (70 mg/mL) solution 0 mg subcut MONTHLY Rx Instructions: states not taking calcium carbonate-vitamin D3 [Calcium 600 with Vitamin D3] 600 mg-12.5 mcg (500 unit) capsule 1 cap PO BID bupropion HCl [Wellbutrin SR] 100 mg tablet sustained-release 12 hr 300 mg PO DAILY lamotrigine [Lamictal] 150 mg Tablet 150 mg PO BID prochlorperazine maleate [Compazine] 10 mg Tablet 10 mg PO Q6H PRN (Reason: Nausea) omeprazole 40 mg Capsule,Delayed Release(Dr/Ec) 40 mg PO QAM sennosides-docusate sodium [Senexon-S] 8.6-50 mg tablet 2 tab PO DAILY PRN (Reason: Constipation) polyethylene glycol 3350 17 gram/dose powder 17 g PO DAILY PRN (Reason: Constipation) Vraylar 1.5 mg capsule 1.5 mg PO QAM duloxetine 60 mg capsule,delayed release(DR/EC) 60 mg PO BID lisinopril 10 mg tablet 10 mg PO DAILY Discharge Orders: Discharge Order (Routine); Ordered 05/27/25 Ordered By: Greg Vieira/Other Patient Handouts: What Is Heart Failure, Heart Failure Flare Up Signs, Heart Failure: Tracking Your Weight, Heart Failure Make Changes Diet Admission Data Admit Date/Time: 05/19/25 19:16 Attending Provider: Greg Apodaca Admit Provider: Timur Zuniga Primary Care Provider: Carol Hernández Other Providers: Timur Zuniga; Marcin Le; Brian Landry; Isaías Dumont; Juan José Monk; Scott García I.; Oleksandr Chicas II; Shameka Sen; David Castro; Jose Marshall; Katelyn Tom; [facility]; Kylie,Dajuan Other Interventions: Discharge Summary Assessment (RN) Last Done: 05/27/25 15:00
== END 2025-05-27 16:39 | disposition home health service (06) | DRG 144 ==
LOC: ED 12:45 → 2S 19:16 → SUATTDRO 19:16 → 2S 20:03